=== PATIENT | male | born 1940 | race Caucasian/White ===

== ENCOUNTER 2017-04-29 08:14 | Inpatient (IN) | payer OTHER, MEDICARE ==
[~2017-04-29] VITALS: Ht 175.3 cm; Wt 74.5 kg
[~2017-04-29 08:14] MED LIST: AMLO5 PO; ASPI81TA23 PO; DONE5TAB7 PO; ENAL20TA PO; GLIP10TA6 PO; HYDR25TA5 PO; LIPI80TA PO; METF1000 PO; NAME5TAB2 PO; PANT40TA3 PO; PARO40TA2 PO; PROP60 PO; SERO50TA PO; TAMS5CAP PO; TRUS2SOL LEFT EYE
[2017-04-29] MEDS ORDERED: METOPROLOL TARTRATE 25 MG TAB PO PRN (09:00)
[2017-04-29] MEDS ORDERED: ceFAZolin 2 GM PREMIX 50 ML IV SCH (09:00)
[2017-04-29] MEDS ORDERED: SODIUM CHLORID 0.9% 500 ML IV PRN (09:00)
[2017-04-29] MEDS ORDERED: CHLORHEXIDINE GLUCONATE 2 % 1 PACK (2 CLOTHS) TOPICAL PRN (09:00)
[2017-04-29] MEDS ORDERED: POVIDONE IODINE 5% (ANTISEPSIS KIT) 4 APPLICATIONS EACH NARE PRN (09:00)
[2017-04-29] MEDS ORDERED: LACTATED RINGER'S 1000 ML IV PRN (09:00)
[2017-04-29] MEDS ORDERED: ACETAMINOPHEN 1000 MG/100 ML 100 ML IV ONE (09:58)
[2017-04-29] MEDS ORDERED: BUPIVACAINE/EPINEPHRINE 0.25% 50 ML VIAL ONE (10:07)
[2017-04-29] MEDS ORDERED: BUPIVACAINE LIPOSOME PF 1.3% 20 ML VIAL ONE (10:25)
[2017-04-29 10:34] LABS: AUTOMATED NEUTROPHIL # 3.9 TH/MM3 (1.8-7.7); BASOPHIL % 0.7 % (0.0-2.0); EOSINOPHIL # 0.1 TH/MM3 (0-0.4); EOSINOPHIL % 1.3 % (0.0-4.0); HEMATOCRIT 35.1 % (39.0-51.0); HEMOGLOBIN 12.1 GM/DL (13.0-17.0); LYMPH % 27.4 % (9.0-44.0); LYMPHOCYTE # 1.7 TH/MM3 (1.0-4.8); MEAN CELL VOLUME 89.1 FL (80.0-100.0); MEAN CORPUSCULAR HEMOGLOBIN 30.7 PG (27.0-34.0); MEAN CORPUSCULAR HGB CONC 34.5 % (32.0-36.0); MEAN PLATELET VOLUME 8.6 FL (7.0-11.0); MONO % 9.1 % (0.0-8.0); MONOCYTE # 0.6 TH/MM3 (0-0.9); NEUT % 61.5 % (16.0-70.0); PLATELET COUNT 225 TH/MM3 (150-450); RED BLOOD COUNT 3.94 MIL/MM3 (4.50-5.90); RED CELL DISTRIBUTION WIDTH 15.5 % (11.6-17.2); WHITE BLOOD COUNT 6.3 TH/MM3 (4.0-11.0)
--- NOTE | 2017-04-29 11:38 | EKG ---
Date Performed: 04/29/2017 Time Performed: 08:56:21 PTAGE: 77 years EKG: Sinus rhythm NORMAL ECG PREVIOUS TRACING : 10/23/2015 13.26 Since the prior tracing, there has been no significant garcia DOCTOR: Tevin Pedro Interpretating Date/Time 04/29/2017 11:37:10
[2017-04-29] MEDS ORDERED: GLYCOPYRROLATE 1 MG/5 ML SYRINGE IV PUSH ONE (12:00)
[2017-04-29] MEDS ORDERED: SODIUM CHLORIDE 0.9% 20 ML VIAL IV ONE (12:00)
[2017-04-29] MEDS ORDERED: ePHEDrine/NS 25 MG/5 ML SYRINGE IV ONE (12:00)
[2017-04-29] MEDS ORDERED: ONDANSETRON HCL 4 MG/2 ML VIAL IV ONE (12:00)
[2017-04-29] MEDS ORDERED: NEOSTIGMINE 5 MG/5 ML SYRINGE IV PUSH ONE (12:00)
[2017-04-29] MEDS ORDERED: PROPOFOL 200 MG/20 ML AMP IV ONE (12:00)
[2017-04-29] MEDS ORDERED: DEXAMETHASONE SOD PHOS 4 MG/ML VIAL IV ONE (12:00)
[2017-04-29] MEDS ORDERED: ROCURONIUM INJ 50 MG/5 ML SYRINGE IV PUSH ONE (12:00)
[2017-04-29] MEDS ORDERED: LIDOCAINE HCL 1% PF 5 ML SYRINGE OTHER ONE (12:00)
[2017-04-29] MEDS ORDERED: DO NOT ADM ANY ANTICOAGULANT DRUGS PRN (13:30)
[2017-04-29] MEDS ORDERED: *morphine SULFATE 4 MG/ML PERIprocedure ONLY ONE ×2 (14:08→14:52)
[2017-04-29] MEDS ORDERED: ONDANSETRON HCL 4 MG/2 ML VIAL IV PUSH PRN (14:15)
[2017-04-29] MEDS ORDERED: NALOXONE HCL 0.4 MG/ML AMP IV PUSH PRN (14:15)
[2017-04-29] MEDS ORDERED: ACETAMINOPHEN/HYDROcodone 325 MG/5 MG TAB PO PRN (14:15)
[2017-04-29] MEDS ORDERED: diphenhydrAMINE HCL 25 MG CAP PO PRN (14:15)
[2017-04-29] MEDS ORDERED: MAGNESIUM HYDROXIDE SUSP 30 ML CUP PO PRN (14:15)
[2017-04-29] MEDS ORDERED: MORPHINE SULFATE 8 MG/ML INJ IV PUSH PRN (14:15)
[2017-04-29] MEDS ORDERED: Post-op Orders (for Pharmacy) XX ONE (14:15)
--- NOTE | 2017-04-29 15:48 | PD.CONS ---
HPI Service [facility] Consult Requested By Dr. Bryant Reason for Consult Medical management Primary Care Physician Pranav Lebron MD Diagnoses: (1) Incisional hernia History of Present Illness 77-year-old male with a medical history significant for coronary artery disease , CVA, diabetes, hypertension, abdominal aortic aneurysm status post repair and incisional hernia admitted to the hospital by general surgery for incisional hernia repair. Apparently the patient failed conservative management therefore he was admitted for surgical intervention. He is seen postoperatively. He reports some discomfort at the site of surgery, otherwise no other complaints. No nausea or vomiting. The patient is a very poor historian. Available records extensively reviewed. Review of Systems Constitutional: DENIES: Fever, Chills Gastrointestinal: COMPLAINS OF: Abdominal pain, DENIES: Nausea, Vomiting Psychiatric: DENIES: Mood changes Except as stated in HPI: all other systems reviewed are Neg Past Family Social History Allergies: Coded Allergies: No Known Allergies (Verified Allergy, Unknown, 04/29/17) Past Medical History Hypertension CVA Impression Diabetes mellitus Coronary artery disease GERD Alzheimer's disease Past Surgical History AAA repair Bilateral inguinal hernia repair History of stent placement 4 Tonsillectomy Longitudinal incisional abdominal hernia repair Family History Reviewed and is found to be noncontributory. Social History Tobacco abuse Denies any alcohol use Physical Exam Vital Signs Vital Signs Date Time Temp Pulse Resp B/P (MAP) Pulse Ox O2 Delivery O2 Flow Rate FiO2 04/29/17 14:15 60 20 157/74 (101) 98 Nasal Cannula 4 04/29/17 14:00 60 20 160/68 (98) 98 Nasal Cannula 4 04/29/17 13:45 59 20 163/73 (103) 98 Nasal Cannula 4 04/29/17 13:30 97.6 60 20 165/79 (107) 98 Nasal Cannula 4 Physical Exam GENERAL: Elderly male, in no apparent distress. SKIN: No rashes, ecchymoses or lesions. Cool and dry. HEAD: Atraumatic. Normocephalic. No temporal or scalp tenderness. EYES: Pupils equal round and reactive. Extraocular motions intact. No scleral icterus. No injection or drainage. ENT: Nose without drainage. Throat without erythema, tonsillar hypertrophy or exudate. Uvula midline. Airway patent. NECK: Trachea midline. No JVD or lymphadenopathy. Supple, nontender, no meningeal signs. CARDIOVASCULAR: Regular rate and rhythm without murmurs, gallops, or rubs. RESPIRATORY: Clear to auscultation. Breath sounds equal bilaterally. GASTROINTESTINAL: Postop, abdominal binder in place. Pedicle dressing in place. MUSCULOSKELETAL: Extremities without clubbing, cyanosis, or edema. NEUROLOGICAL: Very hard of hearing. Awake and alert. Can have a simple conversation Laboratory Laboratory Tests Test 04/29/17 10:15 White Blood Count 6.3 Red Blood Count 3.94 Hemoglobin 12.1 Hematocrit 35.1 Mean Corpuscular Volume 89.1 Mean Corpuscular Hemoglobin 30.7 Mean Corpuscular Hemoglobin Concent 34.5 Red Cell Distribution Width 15.5 Platelet Count 225 Mean Platelet Volume 8.6 Neutrophils (%) (Auto) 61.5 Lymphocytes (%) (Auto) 27.4 Monocytes (%) (Auto) 9.1 Eosinophils (%) (Auto) 1.3 Basophils (%) (Auto) 0.7 Neutrophils # (Auto) 3.9 Lymphocytes # (Auto) 1.7 Monocytes # (Auto) 0.6 Eosinophils # (Auto) 0.1 Basophils # (Auto) 0.0 CBC Comment DIFF FINAL Differential Comment Result Diagram: 04/29/17 1015 Assessment and Plan Problem List: (1) History of incisional hernia repair ICD Code: Z98.890 - Other specified postprocedural states; Z87.19 - Personal history of other diseases of the digestive system (2) Incisional hernia ICD Code: K43.2 - Incisional hernia without obstruction or gangrene (3) HTN (hypertension) ICD Code: I10 - Essential (primary) hypertension Status: Chronic (4) DM (diabetes mellitus) ICD Code: E11.9 - Type 2 diabetes mellitus without complications Status: Chronic (5) CAD (coronary artery disease) ICD Code: I25.10 - Atherosclerotic heart disease of [place] coronary artery without angina pectoris Status: Chronic (6) Alzheimer's dementia ICD Code: G30.9 - Alzheimer's disease, unspecified Status: Chronic (7) H/O: CVA (cerebrovascular accident) ICD Code: Z86.73 - Personal history of transient ischemic attack (TIA), and cerebral infarction without residual deficits Status: Chronic Assessment and Plan 75-year-old male with comorbid conditions significant for CVA, CAD, diabetes, hypertension, history of AAA repair admitted for abdominal incisional hernia repair. Consulted for medical management of comorbid conditions. Status post incisional hernia repair: - Plan per surgery. - Pain control - Monitor bowel functions HTN: - Continue Norvasc, HCTZ, Enalapril and propranolol. - Clonidine as needed. - Monitor BP Diabetes: - Hold metformin and Glipizide. Check BMP - Sliding-scale insulin with Accu-Cheks Dementia: Continue Aricept and Seroquel. H/O CVA: Continue Aspirin CAD: Continue Aspirin, beta leanna. DVT prophylaxis: Frankie Quiroga MD Apr 29, 2017 15:48
[2017-04-29 16:00] VITALS: BP 176/89; PULSE 63; RESP 16; TEMP 96.5; O2SAT 96
[2017-04-29] MEDS: D5-NS + KCL 20 MEQ INJ 1,000 ML IV SCH (16:00)
[2017-04-29] MEDS ORDERED: glipiZIDE 10 MG TAB PO SCH (16:00)
[2017-04-29] MEDS: PROPRANOLOL HCL 20 MG TAB PO SCH (16:49)
[2017-04-29] MEDS: DORZOLAMIDE 2% OPTH SOLN 200 DROP/10 ML BTLO LEFT EYE SCH (16:49)
[2017-04-29] MEDS ORDERED: DEXTROSE 50% IN WATER 50 ML VIAL(D50) IV PUSH PRN (17:00)
[2017-04-29] MEDS ORDERED: GLUCAGON 1 MG/ML VIAL OTHER PRN (17:00)
[2017-04-29] MEDS ORDERED: metFORMIN HCL 500 MG TAB PO SCH (17:00)
[2017-04-29] MEDS ORDERED: cloNIDine HCL 0.1 MG TAB PO PRN (17:00)
[2017-04-29] MEDS: INSULIN ASPART SUPPLEMENTAL SCALE SQ SCH ×2 (18:03→21:20)
[2017-04-29 20:00] VITALS: BP 121/63; PULSE 57; RESP 20; TEMP 96.2; O2SAT 93
[2017-04-29] MEDS: DONEPEZIL HCL 5 MG TAB PO SCH (20:10)
[2017-04-29] MEDS: QUEtiapine FUMARATE 25 MG TAB PO SCH (20:11)
[2017-04-29] MEDS: TAMSULOSIN HCL 0.4 MG CAP PO SCH (20:11)
[2017-04-29] MEDS: ATORVASTATIN 80 MG TAB PO SCH (20:11)
[2017-04-29] MEDS: MEMANTINE HCL 5 MG TAB PO SCH (20:11)
[2017-04-29] MEDS: PANTOPRAZOLE SOD 40 MG DELAYED RELEASE TAB PO SCH (20:12)
[2017-04-29] MEDS: DOCUSATE SODIUM 100 MG CAP PO SCH (20:12)
[2017-04-29] MEDS ORDERED: ENALAPRIL MALEATE 10 MG TAB PO SCH (21:00)
[2017-04-29] MEDS ORDERED: PCA - TOTAL MG MORPHINE DELIVERED PER SHIFT SCH (22:00)
[2017-04-29 22:31] LABS: CALCIUM 8.1 MG/DL (8.5-10.1); CREATININE 1.47 MG/DL (0.60-1.30)
[2017-04-30] VITALS: BP 125/64; PULSE 70; RESP 18; TEMP 97.7; O2SAT 94
[2017-04-30 04:00] VITALS: BP 130/64; PULSE 69; RESP 18; TEMP 98.4; O2SAT 93
[2017-04-30 06:07] LABS: AUTOMATED NEUTROPHIL # 5.9 TH/MM3 (1.8-7.7); BASOPHIL % 0.2 % (0.0-2.0); HEMATOCRIT 34.4 % (39.0-51.0); HEMOGLOBIN 11.8 GM/DL (13.0-17.0); LYMPH % 16.3 % (9.0-44.0); LYMPHOCYTE # 1.3 TH/MM3 (1.0-4.8); MEAN CELL VOLUME 89.9 FL (80.0-100.0); MEAN CORPUSCULAR HEMOGLOBIN 30.8 PG (27.0-34.0); MEAN CORPUSCULAR HGB CONC 34.3 % (32.0-36.0); MONO % 8.6 % (0.0-8.0); MONOCYTE # 0.7 TH/MM3 (0-0.9); NEUT % 74.9 % (16.0-70.0); PLATELET COUNT 232 TH/MM3 (150-450); RED BLOOD COUNT 3.83 MIL/MM3 (4.50-5.90); RED CELL DISTRIBUTION WIDTH 15.6 % (11.6-17.2); WHITE BLOOD COUNT 7.8 TH/MM3 (4.0-11.0)
[2017-04-30 06:26] LABS: BICARBONATE 25.7 MEQ/L (21.0-32.0); CALCIUM 8.1 MG/DL (8.5-10.1); CREATININE 1.4 MG/DL (0.60-1.30)
[2017-04-30 08:00] VITALS: BP 145/67; PULSE 79; RESP 16; TEMP 98.6; O2SAT 94
[2017-04-30] MEDS: amLODIPine BESYLATE 5 MG TAB PO SCH (08:40)
[2017-04-30] MEDS: INSULIN ASPART SUPPLEMENTAL SCALE SQ SCH ×4 (08:40→23:34)
[2017-04-30] MEDS: DOCUSATE SODIUM 100 MG CAP PO SCH ×2 (08:40→23:31)
[2017-04-30] MEDS: PANTOPRAZOLE SOD 40 MG DELAYED RELEASE TAB PO SCH ×2 (08:41→23:31)
[2017-04-30] MEDS: PARoxetine HCL 20 MG TAB PO SCH (08:41)
[2017-04-30] MEDS: PROPRANOLOL HCL 20 MG TAB PO SCH ×3 (08:41→17:45)
[2017-04-30] MEDS: ASPIRIN EC 81 MG TABEC PO SCH (08:41)
[2017-04-30] MEDS: MEMANTINE HCL 5 MG TAB PO SCH ×2 (08:41→23:31)
[2017-04-30] MEDS: HYDROCHLOROTHIAZIDE 25 MG TAB PO SCH (08:41)
[2017-04-30] MEDS: D5-NS + KCL 20 MEQ INJ 1,000 ML IV SCH ×4 (08:42→23:34)
[2017-04-30] MEDS: ACETAMINOPHEN/HYDROcodone 325 MG/5 MG TAB PO PRN ×2 (08:42→23:43)
[2017-04-30] MEDS: DORZOLAMIDE 2% OPTH SOLN 200 DROP/10 ML BTLO LEFT EYE SCH ×3 (08:42→17:46)
--- NOTE | 2017-04-30 09:10 | MP ---
cc: DE LANGSTON M.D. DATE OF SURGERY 04/29/2017 PREOPERATIVE DIAGNOSIS Large ventral incisional hernia POSTOPERATIVE DIAGNOSIS Large ventral incisional hernia PROCEDURE PERFORMED Ventral incisional hernia repair with component separation, retrorectus mesh repair with abdominal wall reconstruction. SURGEON De Langston MD PETROLEUM INSPECTOR Chu Drew MD ANESTHESIA General endotracheal COMPLICATIONS None INDICATIONS FOR THE PROCEDURE Mr. Jaramillo is a pleasant 77-year-old gentleman who had a very large ventral incisional hernia. The majority of this hernia was from the umbilicus down to the pubis where he had a very large hernia sac hanging down into his mons area. There were multiple palpable loops of bowel within the hernia. He also had some smaller [place] cheese type hernias in the upper midline. The patient had a previous exploratory laparotomy. He was seen in the office and offered observation due to his advanced age and medical comorbidities versus repair with mesh. The patient was adamant to have a repair. He states he could no longer go on living with this large hernia. He was advised to wear a binder until surgical repair was completed. The patient underwent cardiac and pulmonary clearance and then returned to the office still expressing interest in repair. The risks and benefits were reviewed with him in detail and he was agreeable. DETAILS The patient was identified, brought to the operating room, placed supine on the operating room table. After adequate general endotracheal anesthesia was achieved, the abdomen was prepped and draped in standard surgical fashion. An elliptical skin incision was used to excise the patient's previous midline laparotomy incision. Dissection carried down to the subcutaneous tissue were a large hernia sac was immediately identified in the lower abdominal area. The hernia sac was grasped and carefully opened. Immediately there were multiple loops of small bowel seen within the hernia sac. The hernia sac and peritoneum was then opened widely. The small bowel was reduced back into the abdominal cavity. By direct palpation, I thought there were multiple hernias throughout the entire midline incision with a very large hernia with diastasis of the rectus in the lower midline. There were also multiple a small bowel adhesions to the abdominal wall which were taken down with sharp dissection. Once the small bowel and omentum was completely freed of the abdominal wall, attention was now directed to repair. Repair was accomplished using a retrorectus abdominal wall component separation technique. First, the hernia sac was excised circumferentially with electrocautery Bovie. Next, the peritoneum and posterior fascia was freed up off of the rectus muscle proceeding out laterally to the abdominal wall muscle. The entire posterior fascia and peritoneum was freed up circumferentially all the way around. Next, two pieces of Seprafilm were placed on the small bowel. The patient had no omentum to covered it up. The posterior fascia and peritoneum was then closed with a #1 loop PDS continuous running for the full length of the incision. There was no significant tension on this closure. Once we did this, a piece of TIGR mesh was brought up 30 x 40. The TIGR mesh was then trimmed to fit the abdominal wall. The mesh was secured inferiorly at the pelvic bone and Kvng's ligament. It was then secured on the posterior fascia circumferentially using a 2-0 Vicryl suture. It was then sutured superiorly in the xiphoid region again using 2-0 Vicryl. The mesh laid completely flat was under no significant tension. The abdominal cavity was then copiously irrigated out with normal saline solution. Attention was now directed to the anterior repair. Anterior repair was accomplished using a #1 looped PDS in a continuous running fashion sewing the abdominal wall fascia together under no significant tension. Once we did this, the patient had an excellent two-layer repair with the retrorectus mesh. The wound was copiously irrigated with normal saline solution. The redundant skin was then excised using sharp dissection. The subcutaneous fat was then reapproximated with 3-0 Vicryl. Skin was closed with a skin stapling device. Sterile dressings were applied and the patient was awakened, brought to recovery in stable condition. MD ALICE Walker/KAYY /3:21 PM /8:34 AM
[2017-04-30 12:00] VITALS: BP 105/53; PULSE 61; RESP 16; TEMP 98.4; O2SAT 93
[2017-04-30] MEDS: ENOXAPARIN SODIUM 30 MG/0.3 ML SYRINGE SQ SCH (12:12)
--- NOTE | 2017-04-30 14:06 | HHI.PR ---
Subjective Remarks Patient reports he is feeling ok. Passing gas. Tolerating a diet. Pain is controlled. Objective Vitals Vital Signs Date Time Temp Pulse Resp B/P (MAP) Pulse Ox O2 Delivery O2 Flow Rate FiO2 04/30/17 12:00 98.4 61 16 105/53 (70) 93 04/30/17 08:00 98.6 79 16 145/67 (93) 94 04/30/17 04:00 98.4 69 18 130/64 (86) 93 04/30/17 00:00 97.7 70 18 125/64 (84) 94 04/29/17 21:12 20 04/29/17 20:00 96.2 57 20 121/63 (82) 93 04/29/17 16:00 96.5 63 16 176/89 (118) 96 04/29/17 15:45 98.1 60 20 145/67 (93) 96 Nasal Cannula 2 04/29/17 15:30 60 20 142/67 (92) 96 Nasal Cannula 2 04/29/17 15:15 60 20 149/72 (97) 96 Nasal Cannula 2 04/29/17 15:00 61 20 148/70 (96) 96 Nasal Cannula 2 04/29/17 14:45 60 20 147/72 (97) 96 Nasal Cannula 2 04/29/17 14:30 60 20 157/73 (101) 96 Nasal Cannula 2 04/29/17 14:15 60 20 157/74 (101) 98 Nasal Cannula 4 I/O 04/29/17 04/29/17 04/29/17 04/30/17 04/30/17 04/30/17 06:59 14:59 22:59 06:59 14:59 22:59 Intake Total 1300 ml 240 ml 360 ml Output Total 250 ml 250 ml 325 ml Balance 1050 ml -10 ml 35 ml Intake Oral 240 ml 360 ml Other 1300 ml Output Urine Total 200 ml 250 ml 325 ml Estimated Blood Loss 50 ml # Bowel Movements 0 0 Result Diagram: 04/30/1745404/30/17454 Objective Remarks GENERAL: This is a well-nourished, well-developed patient, in no apparent distress. CARDIOVASCULAR: Regular rate and rhythm without murmurs, gallops, or rubs. RESPIRATORY: Clear to auscultation. Breath sounds equal bilaterally. No wheezes , rales, or rhonchi. GASTROINTESTINAL: Abdomen binder in place, postop dressing intact. hypoactive bowel sounds MUSCULOSKELETAL: Extremities without clubbing, cyanosis, or edema. NEURO: Awake and alert. Moves all ext x4 A/P Problem List: (1) History of incisional hernia repair ICD Code: Z98.890 - Other specified postprocedural states; Z87.19 - Personal history of other diseases of the digestive system (2) Incisional hernia ICD Code: K43.2 - Incisional hernia without obstruction or gangrene (3) HTN (hypertension) ICD Code: I10 - Essential (primary) hypertension Status: Chronic (4) DM (diabetes mellitus) ICD Code: E11.9 - Type 2 diabetes mellitus without complications Status: Chronic (5) CAD (coronary artery disease) ICD Code: I25.10 - Atherosclerotic heart disease of [place] coronary artery without angina pectoris Status: Chronic (6) Alzheimer's dementia ICD Code: G30.9 - Alzheimer's disease, unspecified Status: Chronic (7) H/O: CVA (cerebrovascular accident) ICD Code: Z86.73 - Personal history of transient ischemic attack (TIA), and cerebral infarction without residual deficits Status: Chronic Assessment and Plan 75-year-old male with comorbid conditions significant for CVA, CAD, diabetes, hypertension, history of AAA repair admitted for abdominal incisional hernia repair. Hospitalist following for medical management of comorbid conditions. Status post incisional hernia repair: - Plan per surgery. - Pain control - Monitor bowel functions HTN: - Continue Norvasc, HCTZ, Enalapril and propranolol. - Clonidine as needed. - Monitor BP Diabetes: - Hold metformin and Glipizide. - Sliding-scale insulin with Accu-Cheks Dementia: Continue Aricept and Seroquel. Probable CKD: Stable. Continue to monitor. H/O CVA: Continue Aspirin CAD: Continue Aspirin, beta leanna. DVT prophylaxis: Frankie Quiroga MD Apr 30, 2017 14:06
--- NOTE | 2017-04-30 15:08 | HHI.PR ---
Subjective Subjective Notes Resting in bed Has been OOB once today Had some coffee Objective Vitals/I&O Vital Signs Date Time Temp Pulse Resp B/P (MAP) Pulse Ox O2 Delivery O2 Flow Rate FiO2 04/30/17 12:00 98.4 61 16 105/53 (70) 93 04/29/17 15:45 Nasal Cannula 2 Labs Laboratory Tests Test 04/29/17 21:23 04/30/17 04:55 Blood Urea Nitrogen 26 30 Creatinine 1.47 1.40 Random Glucose 185 167 Calcium Level 8.1 8.1 Sodium Level 139 139 Potassium Level 4.6 4.3 Chloride Level 107 106 Carbon Dioxide Level 24.0 25.7 Anion Gap 8 7 Estimat Glomerular Filtration Rate 46 49 White Blood Count 7.8 Red Blood Count 3.83 Hemoglobin 11.8 Hematocrit 34.4 Mean Corpuscular Volume 89.9 Mean Corpuscular Hemoglobin 30.8 Mean Corpuscular Hemoglobin Concent 34.3 Red Cell Distribution Width 15.6 Platelet Count 232 Mean Platelet Volume 9.0 Neutrophils (%) (Auto) 74.9 Lymphocytes (%) (Auto) 16.3 Monocytes (%) (Auto) 8.6 Eosinophils (%) (Auto) 0.0 Basophils (%) (Auto) 0.2 Neutrophils # (Auto) 5.9 Lymphocytes # (Auto) 1.3 Monocytes # (Auto) 0.7 Eosinophils # (Auto) 0.0 Basophils # (Auto) 0.0 CBC Comment DIFF FINAL Differential Comment Cardiovascular: Regular Lungs: Clear Abdomen: Other (ANURAG in place with good seal; abdomen tender throughout ) Extremities: No edema A/P Assessment and Plan 77 year old male POD1 abdominal wall reconstruction; modified components separation; mesh -Continue clear liquids -OOB and mobilize; PT eval and treat -Continue IVF -S/p Varela removal -Will likely need short term rehab --would like [facility] ---spoke with America Morgan Apr 30, 2017 15:08
[2017-04-30 16:00] VITALS: BP 176/81; PULSE 72; RESP 17; TEMP 97.2; O2SAT 93
[2017-04-30 20:00] VITALS: BP 155/73; PULSE 68; RESP 16; TEMP 98.1; O2SAT 92
[2017-04-30] MEDS: ATORVASTATIN 80 MG TAB PO SCH (23:31)
[2017-04-30] MEDS: DONEPEZIL HCL 5 MG TAB PO SCH (23:31)
[2017-04-30] MEDS: TAMSULOSIN HCL 0.4 MG CAP PO SCH (23:32)
[2017-04-30] MEDS: QUEtiapine FUMARATE 25 MG TAB PO SCH (23:32)
[2017-05-01] VITALS: BP 173/81; PULSE 73; RESP 16; TEMP 97.9; O2SAT 94
[2017-05-01 06:22] LABS: BICARBONATE 23.9 MEQ/L (21.0-32.0); CALCIUM 8.6 MG/DL (8.5-10.1); CREATININE 1.28 MG/DL (0.60-1.30)
[2017-05-01 08:01] VITALS: BP 182/84; PULSE 89; RESP 19; TEMP 96.8; O2SAT 95
[2017-05-01] MEDS ORDERED: HYDR-3516 PO (08:44)
[2017-05-01] MEDS: D5-NS + KCL 20 MEQ INJ 1,000 ML IV SCH (09:16)
[2017-05-01] MEDS: PARoxetine HCL 20 MG TAB PO SCH (09:17)
[2017-05-01] MEDS: DOCUSATE SODIUM 100 MG CAP PO SCH ×2 (09:17→23:05)
[2017-05-01] MEDS: INSULIN ASPART SUPPLEMENTAL SCALE SQ SCH ×4 (09:17→23:04)
[2017-05-01] MEDS: ASPIRIN EC 81 MG TABEC PO SCH (09:17)
[2017-05-01] MEDS: DORZOLAMIDE 2% OPTH SOLN 200 DROP/10 ML BTLO LEFT EYE SCH ×3 (09:18→17:38)
[2017-05-01] MEDS: HYDROCHLOROTHIAZIDE 25 MG TAB PO SCH (09:18)
[2017-05-01] MEDS: amLODIPine BESYLATE 5 MG TAB PO SCH (09:18)
[2017-05-01] MEDS: MEMANTINE HCL 5 MG TAB PO SCH ×2 (09:18→21:00)
[2017-05-01] MEDS: ENALAPRIL MALEATE 10 MG TAB PO SCH ×2 (09:18→23:06)
[2017-05-01] MEDS: PROPRANOLOL HCL 20 MG TAB PO SCH ×3 (09:18→17:37)
[2017-05-01] MEDS: PANTOPRAZOLE SOD 40 MG DELAYED RELEASE TAB PO SCH ×2 (09:18→23:05)
[2017-05-01] MEDS: ENOXAPARIN SODIUM 30 MG/0.3 ML SYRINGE SQ SCH (11:59)
--- NOTE | 2017-05-01 12:29 | HHI.PR ---
cc: Say Bryant MD Subjective Subjective Notes Resting in bed Feeling about the same as yesterday Tolerating clear liquids Objective Vitals/I&O Vital Signs Date Time Temp Pulse Resp B/P (MAP) Pulse Ox O2 Delivery O2 Flow Rate FiO2 05/01/17 08:01 96.8 89 19 182/84 (116) 95 04/29/17 15:45 Nasal Cannula 2 Labs Laboratory Tests Test 05/01/17 04:20 Blood Urea Nitrogen 19 Creatinine 1.28 Random Glucose 197 Calcium Level 8.6 Sodium Level 135 Potassium Level 4.0 Chloride Level 105 Carbon Dioxide Level 23.9 Anion Gap 6 Estimat Glomerular Filtration Rate 54 Cardiovascular: Regular Lungs: Clear Abdomen: Other (ANURAG in place with good seal; abdomen soft; mildly tender to palpation ) Extremities: No edema A/P Assessment and Plan 77 year old male POD2 abdominal wall reconstruction; modified components separation; mesh -Continue clear liquids -OOB and mobilize; PT eval and treat -Decrease IVF -Will likely need short term rehab --would like [facility] ---spoke with BEATRIS Blanco; signed 3005 on chart -Plan for DC early next week America Bautista May 01, 2017 12:29
[2017-05-01 12:32] VITALS: BP 135/60; PULSE 60; RESP 18; TEMP 96.8; O2SAT 96
--- NOTE | 2017-05-01 14:56 | RADRPT ---
EXAM DATE/TIME: 05/01/2017 14:42 [facility] COMPARISON: CHEST SINGLE AP, September 16, 2015, 10:55. INDICATIONS : Short of breath. MEDICAL HISTORY : Hypertension. Cardiovascular disease Diabetes mellitus type 2. SURGICAL HISTORY : Hernia surgery. ENCOUNTER: Initial ACUITY: 1 day PAIN SCORE: 0/10 LOCATION: Bilateral chest FINDINGS: A single view of the chest demonstrates minimal bibasilar densities. The cardiomediastinal contours are unremarkable. Osseous structures are intact. CONCLUSION: Bibasilar densities greater left lower lobe. Dylan Monroy MD on May 01, 2017 at 14:52 Board Certified Radiologist. This report was verified electronically.
[2017-05-01 16:00] VITALS: BP 166/76; PULSE 60; RESP 18; TEMP 97.3; O2SAT 96
--- NOTE | 2017-05-01 16:09 | HHI.PR ---
Subjective Remarks Patient reports he is doing okay today. Pain is controlled. Tolerating a diet. Objective Vitals Vital Signs Date Time Temp Pulse Resp B/P (MAP) Pulse Ox O2 Delivery O2 Flow Rate FiO2 05/01/17 12:32 96.8 60 18 135/60 (85) 96 05/01/17 08:01 96.8 89 19 182/84 (116) 95 05/01/17 00:00 97.9 73 16 173/81 (111) 94 04/30/17 20:00 98.1 68 16 155/73 (100) 92 I/O 04/30/17 04/30/17 04/30/17 05/01/17 05/01/17 05/01/17 07:00 15:00 23:00 07:00 15:00 23:00 Intake Total 360 ml 660 ml 1000 ml Output Total 325 ml 700 ml Balance 35 ml -40 ml 1000 ml Intake Oral 360 ml 660 ml IV Total 1000 ml Output Urine Total 325 ml 700 ml # Voids 3 # Bowel Movements 0 0 Result Diagram: 04/30/17 0455 05/01/17 0420 Objective Remarks GENERAL: This is a well-nourished, well-developed patient, in no apparent distress. CARDIOVASCULAR: Regular rate and rhythm without murmurs, gallops, or rubs. RESPIRATORY: Clear to auscultation. Breath sounds equal bilaterally. No wheezes , rales, or rhonchi. GASTROINTESTINAL: Abdomen binder in place, postop dressing intact. hypoactive bowel sounds MUSCULOSKELETAL: Extremities without clubbing, cyanosis, or edema. NEURO: Awake and alert. Moves all ext x4 A/P Problem List: (1) History of incisional hernia repair ICD Code: Z98.890 - Other specified postprocedural states; Z87.19 - Personal history of other diseases of the digestive system (2) Incisional hernia ICD Code: K43.2 - Incisional hernia without obstruction or gangrene (3) HTN (hypertension) ICD Code: I10 - Essential (primary) hypertension Status: Chronic (4) DM (diabetes mellitus) ICD Code: E11.9 - Type 2 diabetes mellitus without complications Status: Chronic (5) CAD (coronary artery disease) ICD Code: I25.10 - Atherosclerotic heart disease of [place] coronary artery without angina pectoris Status: Chronic (6) Alzheimer's dementia ICD Code: G30.9 - Alzheimer's disease, unspecified Status: Chronic (7) H/O: CVA (cerebrovascular accident) ICD Code: Z86.73 - Personal history of transient ischemic attack (TIA), and cerebral infarction without residual deficits Status: Chronic Assessment and Plan 75-year-old male with comorbid conditions significant for CVA, CAD, diabetes, hypertension, history of AAA repair admitted for abdominal incisional hernia repair. Hospitalist following for medical management of comorbid conditions. Status post incisional hernia repair: - Plan per surgery. - Pain control - Monitor bowel functions - Incentive spirometry - Encourage ambulation HTN: - Continue Norvasc, HCTZ,propranolol. - Restart enalapril - Clonidine as needed. - Monitor BP Diabetes: - Hold metformin and Glipizide. - Sliding-scale insulin with Accu-Cheks Dementia: Continue Aricept and Seroquel. Probable CKD: Stable. Continue to monitor. H/O CVA: Continue Aspirin CAD: Continue Aspirin, beta leanna. DVT prophylaxis: Lovenox Discharge Planning Per primary. He will need SNF. Frankie Osborne MD May 01, 2017 16:09
[2017-05-01 16:30] VITALS: O2SAT 96
[2017-05-01 20:00] VITALS: BP 173/78; PULSE 58; RESP 18; TEMP 97.9; O2SAT 95
[2017-05-01] MEDS: DONEPEZIL HCL 5 MG TAB PO SCH (23:04)
[2017-05-01] MEDS: ATORVASTATIN 80 MG TAB PO SCH (23:04)
[2017-05-01] MEDS: QUEtiapine FUMARATE 25 MG TAB PO SCH (23:05)
[2017-05-01] MEDS: TAMSULOSIN HCL 0.4 MG CAP PO SCH (23:05)
[2017-05-02] VITALS: BP 138/65; PULSE 64; RESP 18; TEMP 97.6; O2SAT 96
[2017-05-02 08:00] VITALS: BP 180/82; PULSE 67; RESP 16; TEMP 98.7; O2SAT 97
[2017-05-02] MEDS: INSULIN ASPART SUPPLEMENTAL SCALE SQ SCH ×4 (08:00→22:40)
[2017-05-02] MEDS: DORZOLAMIDE 2% OPTH SOLN 200 DROP/10 ML BTLO LEFT EYE SCH ×3 (08:18→16:13)
[2017-05-02] MEDS: amLODIPine BESYLATE 5 MG TAB PO SCH (08:20)
[2017-05-02] MEDS: PANTOPRAZOLE SOD 40 MG DELAYED RELEASE TAB PO SCH ×2 (08:21→22:35)
[2017-05-02] MEDS: PROPRANOLOL HCL 20 MG TAB PO SCH ×3 (08:21→16:34)
[2017-05-02] MEDS: ASPIRIN EC 81 MG TABEC PO SCH (08:21)
[2017-05-02] MEDS: HYDROCHLOROTHIAZIDE 25 MG TAB PO SCH (08:21)
[2017-05-02] MEDS: PARoxetine HCL 20 MG TAB PO SCH (08:22)
[2017-05-02] MEDS: ENALAPRIL MALEATE 10 MG TAB PO SCH ×2 (08:22→22:34)
[2017-05-02] MEDS: DOCUSATE SODIUM 100 MG CAP PO SCH ×2 (08:22→22:35)
--- NOTE | 2017-05-02 08:23 | HHI.PR ---
Subjective Subjective Notes feels fine, tolerating liquids, denies N/V. still mildly confused (baseline). no BM yet Objective Vitals/I&O Vital Signs Date Time Temp Pulse Resp B/P (MAP) Pulse Ox O2 Delivery O2 Flow Rate FiO2 05/02/17 00:00 97.6 64 18 138/65 (89) 96 05/01/17 16:30 Nasal Cannula 3.00 Cardiovascular: Regular Lungs: Clear Abdomen: Non-distended, Post-op tenderness, BS normal Wound Wound : Wound Location: Abdomen Appearance: Clean & Dry Dressing: VAC A/P Assessment and Plan s/p abdominal wall reconstruction for giant incisional hernia advance to soft diet ambulate, up in chair awaiting bowel function to rehab soon. Say Bryant MD May 02, 2017 08:23
[2017-05-02] MEDS: MEMANTINE HCL 5 MG TAB PO SCH ×2 (08:25→22:35)
--- NOTE | 2017-05-02 11:26 | HHI.PR ---
Subjective Remarks Patient reports he is doing ok today. Pain is controlled. BP uncontrolled. Objective Vitals Vital Signs Date Time Temp Pulse Resp B/P (MAP) Pulse Ox O2 Delivery O2 Flow Rate FiO2 05/02/17 08:00 98.7 67 16 180/82 (114) 97 05/02/17 00:00 97.6 64 18 138/65 (89) 96 05/01/17 20:00 97.9 58 18 173/78 (109) 95 05/01/17 16:30 96 Nasal Cannula 3.00 05/01/17 16:00 97.3 60 18 166/76 (106) 96 05/01/17 12:32 96.8 60 18 135/60 (85) 96 I/O 05/01/17 05/01/17 05/01/17 05/02/17 05/02/17 05/02/17 07:00 15:00 23:00 07:00 15:00 23:00 Intake Total 1000 ml 1450 ml Balance 1000 ml 1450 ml Intake Oral 600 ml IV Total 1000 ml 850 ml # Voids 3 10 5 # Bowel Movements 0 0 Result Diagram: 04/30/17 0455 05/01/17 0420 Objective Remarks GENERAL: This is a well-nourished, well-developed patient, in no apparent distress. CARDIOVASCULAR: Regular rate and rhythm without murmurs, gallops, or rubs. RESPIRATORY: Clear to auscultation. Breath sounds equal bilaterally. No wheezes , rales, or rhonchi. GASTROINTESTINAL: Abdomen binder in place, postop dressing intact. Normal bowel sounds MUSCULOSKELETAL: Extremities without clubbing, cyanosis, or edema. NEURO: Awake and alert. Moves all ext x4 A/P Problem List: (1) History of incisional hernia repair ICD Code: Z98.890 - Other specified postprocedural states; Z87.19 - Personal history of other diseases of the digestive system (2) Incisional hernia ICD Code: K43.2 - Incisional hernia without obstruction or gangrene (3) HTN (hypertension) ICD Code: I10 - Essential (primary) hypertension Status: Chronic (4) DM (diabetes mellitus) ICD Code: E11.9 - Type 2 diabetes mellitus without complications Status: Chronic (5) CAD (coronary artery disease) ICD Code: I25.10 - Atherosclerotic heart disease of [place] coronary artery without angina pectoris Status: Chronic (6) Alzheimer's dementia ICD Code: G30.9 - Alzheimer's disease, unspecified Status: Chronic (7) H/O: CVA (cerebrovascular accident) ICD Code: Z86.73 - Personal history of transient ischemic attack (TIA), and cerebral infarction without residual deficits Status: Chronic Assessment and Plan 75-year-old male with comorbid conditions significant for CVA, CAD, diabetes, hypertension, history of AAA repair admitted for abdominal incisional hernia repair. Hospitalist following for medical management of comorbid conditions. Status post incisional hernia repair: - Plan per surgery. - Pain control - Monitor bowel functions - Incentive spirometry - Encourage ambulation HTN: - Uncontrolled, Increase Norvasc. Continue HCTZ,propranolol. - Continue enalapril - Clonidine as needed. - Monitor BP Diabetes: - Hold metformin and Glipizide. - Sliding-scale insulin with Accu-Cheks Dementia: Continue Aricept and Seroquel. Probable CKD: Stable. Continue to monitor. H/O CVA: Continue Aspirin CAD: Continue Aspirin, beta leanna. DVT prophylaxis: Lovenox Discharge Planning Per primary. He will need SNF. Frankie Osborne MD May 02, 2017 11:26
[2017-05-02] MEDS: ENOXAPARIN SODIUM 30 MG/0.3 ML SYRINGE SQ SCH (11:37)
[2017-05-02 12:00] VITALS: BP 154/67; PULSE 56; RESP 17; TEMP 97.8; O2SAT 96
[2017-05-02 16:00] VITALS: BP 173/68; PULSE 58; RESP 18; TEMP 97.1; O2SAT 97
[2017-05-02 20:00] VITALS: BP 146/69; PULSE 59; RESP 10; TEMP 98.4; O2SAT 97
[2017-05-02] MEDS: DONEPEZIL HCL 5 MG TAB PO SCH (22:35)
[2017-05-02] MEDS: ATORVASTATIN 80 MG TAB PO SCH (22:35)
[2017-05-02] MEDS: TAMSULOSIN HCL 0.4 MG CAP PO SCH (22:36)
[2017-05-02] MEDS: QUEtiapine FUMARATE 25 MG TAB PO SCH (22:37)
[2017-05-03 00:21] VITALS: BP 151/71; PULSE 55; RESP 18; TEMP 97.5; O2SAT 95
[2017-05-03] MEDS: DORZOLAMIDE 2% OPTH SOLN 200 DROP/10 ML BTLO LEFT EYE SCH ×3 (07:22→16:44)
[2017-05-03 08:00] VITALS: BP 126/61; PULSE 68; RESP 16; TEMP 96.8; O2SAT 95
[2017-05-03] MEDS: amLODIPine BESYLATE 5 MG TAB PO SCH (09:00)
[2017-05-03] MEDS: INSULIN ASPART SUPPLEMENTAL SCALE SQ SCH ×4 (09:18→20:52)
[2017-05-03] MEDS: DOCUSATE SODIUM 100 MG CAP PO SCH ×2 (09:18→20:35)
[2017-05-03] MEDS: PANTOPRAZOLE SOD 40 MG DELAYED RELEASE TAB PO SCH ×2 (09:20→20:35)
[2017-05-03] MEDS: HYDROCHLOROTHIAZIDE 25 MG TAB PO SCH (09:20)
[2017-05-03] MEDS: MEMANTINE HCL 5 MG TAB PO SCH ×2 (09:21→20:34)
[2017-05-03] MEDS: ENALAPRIL MALEATE 10 MG TAB PO SCH ×2 (09:21→20:35)
[2017-05-03] MEDS: PROPRANOLOL HCL 20 MG TAB PO SCH ×3 (09:21→16:50)
[2017-05-03] MEDS: PARoxetine HCL 20 MG TAB PO SCH (09:22)
[2017-05-03] MEDS: ASPIRIN EC 81 MG TABEC PO SCH (09:22)
--- NOTE | 2017-05-03 11:38 | HHI.PR ---
Subjective Remarks Patient reports is feeling okay. Abdominal pain control. No nausea or vomiting. He is tolerating his diet. Objective Vitals Vital Signs Date Time Temp Pulse Resp B/P (MAP) Pulse Ox O2 Delivery O2 Flow Rate FiO2 05/03/17 08:00 96.8 68 16 126/61 (82) 95 05/03/17 00:21 97.5 55 18 151/71 (97) 95 05/02/17 20:00 98.4 59 10 146/69 (94) 97 05/02/17 16:00 97.1 58 18 173/68 (103) 97 05/02/17 12:00 97.8 56 17 154/67 (96) 96 I/O 05/02/17 05/02/17 05/02/17 05/03/17 05/03/17 05/03/17 07:00 15:00 23:00 07:00 15:00 23:00 Intake Total 420 ml 540 ml Balance 420 ml 540 ml Intake Oral 420 ml 540 ml # Voids 5 4 7 # Bowel Movements 0 0 Result Diagram: 04/30/17 0455 05/01/17 0420 Objective Remarks GENERAL: This is a well-nourished, well-developed patient, in no apparent distress. CARDIOVASCULAR: Regular rate and rhythm without murmurs, gallops, or rubs. RESPIRATORY: Clear to auscultation. Breath sounds equal bilaterally. No wheezes , rales, or rhonchi. GASTROINTESTINAL: Abdomen binder in place, postop dressing intact. Normal bowel sounds MUSCULOSKELETAL: Extremities without clubbing, cyanosis, or edema. NEURO: Awake and alert. Moves all ext x4 A/P Problem List: (1) History of incisional hernia repair ICD Code: Z98.890 - Other specified postprocedural states; Z87.19 - Personal history of other diseases of the digestive system (2) Incisional hernia ICD Code: K43.2 - Incisional hernia without obstruction or gangrene (3) HTN (hypertension) ICD Code: I10 - Essential (primary) hypertension Status: Chronic (4) DM (diabetes mellitus) ICD Code: E11.9 - Type 2 diabetes mellitus without complications Status: Chronic (5) CAD (coronary artery disease) ICD Code: I25.10 - Atherosclerotic heart disease of [place] coronary artery without angina pectoris Status: Chronic (6) Alzheimer's dementia ICD Code: G30.9 - Alzheimer's disease, unspecified Status: Chronic (7) H/O: CVA (cerebrovascular accident) ICD Code: Z86.73 - Personal history of transient ischemic attack (TIA), and cerebral infarction without residual deficits Status: Chronic Assessment and Plan 75-year-old male with comorbid conditions significant for CVA, CAD, diabetes, hypertension, history of AAA repair admitted for abdominal incisional hernia repair. Hospitalist following for medical management of comorbid conditions. Status post incisional hernia repair: - Plan per surgery. - Pain control - Monitor bowel functions - Incentive spirometry - Encourage ambulation HTN: -Better controlled with increased dose of Norvasc. Continue HCTZ,propranolol. - Continue enalapril - Clonidine as needed. - Monitor BP Diabetes: - Hold metformin and Glipizide. - Sliding-scale insulin with Accu-Cheks Dementia: Continue Aricept and Seroquel. Probable CKD: Stable. Continue to monitor. H/O CVA: Continue Aspirin CAD: Continue Aspirin, beta leanna. DVT prophylaxis: Lovenox Discharge Planning Per primary. He will need SNF. Frankie Osborne MD May 03, 2017 11:38
[2017-05-03 12:00] VITALS: BP 128/68; PULSE 73; RESP 17; TEMP 96.5; O2SAT 95
[2017-05-03] MEDS: ENOXAPARIN SODIUM 30 MG/0.3 ML SYRINGE SQ SCH (12:05)
[2017-05-03 16:00] VITALS: BP 124/68; PULSE 65; RESP 17; TEMP 96.4; O2SAT 95
[2017-05-03 20:00] VITALS: BP 143/66; PULSE 58; RESP 20; TEMP 97.9; O2SAT 96
[2017-05-03] MEDS: QUEtiapine FUMARATE 25 MG TAB PO SCH (20:34)
[2017-05-03] MEDS: DONEPEZIL HCL 5 MG TAB PO SCH (20:34)
[2017-05-03] MEDS: TAMSULOSIN HCL 0.4 MG CAP PO SCH (20:35)
[2017-05-03] MEDS: ATORVASTATIN 80 MG TAB PO SCH (20:35)
[2017-05-04] VITALS: BP 125/60; PULSE 59; RESP 18; TEMP 96.7; O2SAT 95
[2017-05-04 08:00] VITALS: BP 122/58; PULSE 71; RESP 18; TEMP 96.6; O2SAT 97
[2017-05-04] MEDS: INSULIN ASPART SUPPLEMENTAL SCALE SQ SCH ×4 (08:00→20:57)
[2017-05-04] MEDS: DORZOLAMIDE 2% OPTH SOLN 200 DROP/10 ML BTLO LEFT EYE SCH ×3 (09:00→17:46)
[2017-05-04] MEDS: ENALAPRIL MALEATE 10 MG TAB PO SCH ×2 (09:03→20:57)
[2017-05-04] MEDS: PARoxetine HCL 20 MG TAB PO SCH (09:04)
[2017-05-04] MEDS: DOCUSATE SODIUM 100 MG CAP PO SCH ×2 (09:04→20:57)
[2017-05-04] MEDS: ASPIRIN EC 81 MG TABEC PO SCH (09:04)
[2017-05-04] MEDS: PROPRANOLOL HCL 20 MG TAB PO SCH ×3 (09:04→17:31)
[2017-05-04] MEDS: amLODIPine BESYLATE 5 MG TAB PO SCH (09:04)
[2017-05-04] MEDS: HYDROCHLOROTHIAZIDE 25 MG TAB PO SCH (09:05)
[2017-05-04] MEDS: MEMANTINE HCL 5 MG TAB PO SCH ×2 (09:06→20:57)
[2017-05-04] MEDS: PANTOPRAZOLE SOD 40 MG DELAYED RELEASE TAB PO SCH ×2 (09:06→20:57)
[2017-05-04] MEDS ORDERED: MAGNESIUM HYDROXIDE SUSP 30 ML CUP PO ONE (10:30)
[2017-05-04 12:00] VITALS: BP 124/65; PULSE 60; RESP 18; TEMP 96.8; O2SAT 96
[2017-05-04] MEDS: ENOXAPARIN SODIUM 30 MG/0.3 ML SYRINGE SQ SCH (12:23)
--- NOTE | 2017-05-04 13:59 | HHI.PR ---
Subjective Remarks Patient reports he is feeling well. Denies any issues. Tolerating diet. Objective Vitals Vital Signs Date Time Temp Pulse Resp B/P (MAP) Pulse Ox O2 Delivery O2 Flow Rate FiO2 05/04/17 12:00 96.8 60 18 124/65 (84) 96 05/04/17 08:00 96.6 71 18 122/58 (79) 97 05/04/17 00:00 96.7 59 18 125/60 (81) 95 05/03/17 20:00 97.9 58 20 143/66 (91) 96 05/03/17 16:00 96.4 65 17 124/68 (86) 95 I/O 05/03/17 05/03/17 05/03/17 05/04/17 05/04/17 05/04/17 07:00 15:00 23:00 07:00 15:00 23:00 Intake Total 540 ml 240 ml 480 ml Balance 540 ml 240 ml 480 ml Intake Oral 540 ml 240 ml 480 ml # Voids 7 1 6 5 # Bowel Movements 1 Result Diagram: 04/30/17 0455 05/01/17 0420 Objective Remarks GENERAL: This is a well-nourished, well-developed patient, in no apparent distress. CARDIOVASCULAR: Regular rate and rhythm without murmurs, gallops, or rubs. RESPIRATORY: Clear to auscultation. Breath sounds equal bilaterally. No wheezes , rales, or rhonchi. GASTROINTESTINAL: Abdomen binder in place, postop dressing intact. Normal bowel sounds MUSCULOSKELETAL: Extremities without clubbing, cyanosis, or edema. NEURO: Awake and alert. Moves all ext x4 A/P Problem List: (1) History of incisional hernia repair ICD Code: Z98.890 - Other specified postprocedural states; Z87.19 - Personal history of other diseases of the digestive system (2) Incisional hernia ICD Code: K43.2 - Incisional hernia without obstruction or gangrene (3) HTN (hypertension) ICD Code: I10 - Essential (primary) hypertension Status: Chronic (4) DM (diabetes mellitus) ICD Code: E11.9 - Type 2 diabetes mellitus without complications Status: Chronic (5) CAD (coronary artery disease) ICD Code: I25.10 - Atherosclerotic heart disease of [place] coronary artery without angina pectoris Status: Chronic (6) Alzheimer's dementia ICD Code: G30.9 - Alzheimer's disease, unspecified Status: Chronic (7) H/O: CVA (cerebrovascular accident) ICD Code: Z86.73 - Personal history of transient ischemic attack (TIA), and cerebral infarction without residual deficits Status: Chronic Assessment and Plan 75-year-old male with comorbid conditions significant for CVA, CAD, diabetes, hypertension, history of AAA repair admitted for abdominal incisional hernia repair. Hospitalist following for medical management of comorbid conditions. Status post incisional hernia repair: - Plan per surgery. - Pain control - Monitor bowel functions - Incentive spirometry - Encourage ambulation HTN: -Better controlled with increased dose of Norvasc. Continue HCTZ,propranolol. - Continue enalapril - Clonidine as needed. - Monitor BP Diabetes: - Hold metformin and Glipizide. - Sliding-scale insulin with Accu-Cheks - May resume oral Hypoglycemic agents on discharge. Dementia: Continue Aricept and Seroquel. Probable CKD: Stable. Continue to monitor. H/O CVA: Continue Aspirin CAD: Continue Aspirin, beta leanna. DVT prophylaxis: Lovenox Discharge Planning Per primary. He will need SNF. Hospitalist jose for [facility]. Frankie Osborne MD May 04, 2017 13:59
--- NOTE | 2017-05-04 15:56 | HHI.PR ---
Subjective Subjective Notes Patient reports no BM still Up to chair eating Pain better today Objective Vitals/I&O Vital Signs Date Time Temp Pulse Resp B/P (MAP) Pulse Ox O2 Delivery O2 Flow Rate FiO2 05/04/17 12:00 96.8 60 18 124/65 (84) 96 05/01/17 16:30 Nasal Cannula 3.00 Cardiovascular: Regular Lungs: Clear Abdomen: Other (midline incision with ANURAG --- abdomen soft non tender ) Extremities: No edema A/P Assessment and Plan 77 year old male POD5 abdominal wall reconstruction; modified components separation; mesh -Tolerating regular diet -+Flatus; no BM yet--- ordered MOM -OOB and mobilize; PT eval and treat -Plan for DC to [facility] tomorrow Attending Statement ANURAG dressing intact. Pt very stable, awaiting BM. Will order mag citrate. The exam, history, and the medical decision-making described in the above note were completed with the assistance of the mid-level provider. I reviewed and agree with the findings presented. I attest that I had a [id number] encounter with the patient on the same day, and personally performed and documented my assessment and findings in the medical record. America Bautista May 04, 2017 15:56 Tevin Palafox MD May 05, 2017 07:36
[2017-05-04 16:00] VITALS: BP 125/60; PULSE 58; RESP 19; TEMP 97.7; O2SAT 96
[2017-05-04 20:53] VITALS: BP 138/63; PULSE 61; RESP 18; TEMP 97.8; O2SAT 57; O2SAT 97
[2017-05-04] MEDS: QUEtiapine FUMARATE 25 MG TAB PO SCH (20:56)
[2017-05-04] MEDS: DONEPEZIL HCL 5 MG TAB PO SCH (20:57)
[2017-05-04] MEDS: ATORVASTATIN 80 MG TAB PO SCH (20:57)
[2017-05-04] MEDS: TAMSULOSIN HCL 0.4 MG CAP PO SCH (20:57)
[2017-05-04] MEDS ORDERED: MAGNESIUM CITRATE SOLN 300 ML BTL PO ONE (21:15)
[2017-05-05] VITALS: BP 109/55; PULSE 61; RESP 16; TEMP 96.8; O2SAT 95
[2017-05-05 08:00] VITALS: BP 136/69; PULSE 60; RESP 18; TEMP 96.7; O2SAT 95
[2017-05-05] MEDS: INSULIN ASPART SUPPLEMENTAL SCALE SQ SCH ×4 (08:00→21:00)
[2017-05-05] MEDS: amLODIPine BESYLATE 5 MG TAB PO SCH (08:44)
[2017-05-05] MEDS: ASPIRIN EC 81 MG TABEC PO SCH (08:45)
[2017-05-05] MEDS: PROPRANOLOL HCL 20 MG TAB PO SCH ×3 (08:48→19:09)
[2017-05-05] MEDS: PARoxetine HCL 20 MG TAB PO SCH (08:48)
[2017-05-05] MEDS: HYDROCHLOROTHIAZIDE 25 MG TAB PO SCH (08:48)
[2017-05-05] MEDS: MEMANTINE HCL 5 MG TAB PO SCH ×2 (08:48→21:18)
[2017-05-05] MEDS: PANTOPRAZOLE SOD 40 MG DELAYED RELEASE TAB PO SCH ×2 (08:48→21:18)
[2017-05-05 08:49] VITALS: O2SAT 95
[2017-05-05] MEDS: ENALAPRIL MALEATE 10 MG TAB PO SCH ×2 (08:50→21:18)
[2017-05-05] MEDS: DOCUSATE SODIUM 100 MG CAP PO SCH ×2 (09:00→21:17)
--- NOTE | 2017-05-05 09:59 | HHI.PR ---
Subjective Remarks Follow up hypertension. Patient has no complaints at this time. States that he is ready for discharge. Objective Vitals Vital Signs Date Time Temp Pulse Resp B/P (MAP) Pulse Ox O2 Delivery O2 Flow Rate FiO2 05/05/17 08:49 95 Nasal Cannula 3.00 05/05/17 08:00 96.7 60 18 136/69 (91) 95 05/05/17 00:00 96.8 61 16 109/55 (73) 95 05/04/17 22:04 Nasal Cannula 3.00 05/04/17 20:53 97.8 61 18 138/63 (88) 97 05/04/17 16:00 97.7 58 19 125/60 (81) 96 05/04/17 12:00 96.8 60 18 124/65 (84) 96 I/O 05/04/17 05/04/17 05/04/17 05/05/17 05/05/17 05/05/17 07:00 15:00 23:00 07:00 15:00 23:00 Intake Total 480 ml 360 ml Balance 480 ml 360 ml Intake Oral 480 ml 360 ml # Voids 5 6 3 # Bowel Movements 2 Result Diagram: 05/01/17 0420 Imaging Last Impressions Chest X-Ray 05/01/17 0000 Signed Impressions: Service Date/Time: Monday, May 01, 2017 14:42 - CONCLUSION: Bibasilar densities greater left lower lobe. Dylan Monroy MD Objective Remarks General: Elderly male in no acute distress. Heart: Regular rate and rhythm. No murmur. Lungs: Clear to auscultation bilaterally. No wheezes, rales, or rhonchi. Breathing is nonlabored. Abdomen: Abdominal binder in place. Extremities: No lower extremity edema. No calf tenderness. Psych: Alert and oriented. Urinary Catheter: No Vascular Central Line Catheter: No A/P Problem List: (1) History of incisional hernia repair ICD Code: Z98.890 - Other specified postprocedural states; Z87.19 - Personal history of other diseases of the digestive system (2) Incisional hernia ICD Code: K43.2 - Incisional hernia without obstruction or gangrene (3) HTN (hypertension) ICD Code: I10 - Essential (primary) hypertension Status: Chronic (4) DM (diabetes mellitus) ICD Code: E11.9 - Type 2 diabetes mellitus without complications Status: Chronic (5) CAD (coronary artery disease) ICD Code: I25.10 - Atherosclerotic heart disease of [place] coronary artery without angina pectoris Status: Chronic (6) Alzheimer's dementia ICD Code: G30.9 - Alzheimer's disease, unspecified Status: Chronic (7) H/O: CVA (cerebrovascular accident) ICD Code: Z86.73 - Personal history of transient ischemic attack (TIA), and cerebral infarction without residual deficits Status: Chronic Assessment and Plan 1. Status post incisional hernia repair: Management per general surgery. Continue pain control, bowel regimen. Continue incentive spirometry. 2. Hypertension: Continue enalapril, HCTZ, Norvasc, propranolol. Clonidine as needed. BP control improved. 3. Diabetes mellitus: Metformin and glipizide on hold. Monitor Accu-Cheks and cover with sliding scale insulin. Glucose elevated. Resume oral hypoglycemic agents on discharge. 4. Dementia: Continue Aricept, Seroquel. 5. Probable chronic kidney disease: Stable. 6. History of CVA: Continue aspirin. 7. Coronary artery disease: Continue aspirin, beta leanna. 8. DVT prophylaxis: Lovenox. Discharge Planning Per general surgery. Patient will need correction facility. Hospitalist clear for discharge. Albert Jo MD May 05, 2017 09:59
[2017-05-05 12:00] VITALS: BP 132/59; PULSE 54; RESP 19; TEMP 96.6; O2SAT 97
[2017-05-05] MEDS: ENOXAPARIN SODIUM 30 MG/0.3 ML SYRINGE SQ SCH (12:15)
[2017-05-05] MEDS: DORZOLAMIDE 2% OPTH SOLN 200 DROP/10 ML BTLO LEFT EYE SCH ×3 (12:44→19:09)
--- NOTE | 2017-05-05 15:38 | HHI.DS ---
Discharge Summary Admission Date Apr 29, 2017 at 14:10 Discharge Date: May 05, 2017 Admitting Diagnosis Brief History 77 year old male POD5 abdominal wall reconstruction; modified components separation; mesh CBC/BMP: 05/01/17 0420 PE at Discharge Resting in bed ; Alert and awke Cardio: RRR Resp: CTAB Abd : ANURAG removed; kalyani intact; left MAHAD Hospital Course This is a 77 year old male POD5 abdominal wall reconstruction; modified components separation; mesh. The patient was advanced to a regular diet. The patient's pain was controlled using oral pain medications. The patient was able to ambulate with assistance. The patient did have bowel function prior to discharge. The patient will be discharged to a longterm facility. The patient will follow up Thursday. Pt Condition on Discharge: Good Discharge Disposition: Discharge Home Discharge Instructions DIET: Follow Instructions for: As Tolerated, No Restrictions Activities you can perform: See Additionl Instruction Other Activity Instructions: Okay to shower; pat incision dry No bathtubs Attending Statement The exam, history, and the medical decision-making described in the above note were completed with the assistance of the mid-level provider. I reviewed and agree with the findings presented. I attest that I had a [id number] encounter with the patient on the same day, and personally performed and documented my assessment and findings in the medical record. America Bautista May 05, 2017 15:38 Tevin Palafox MD May 05, 2017 16:53
[2017-05-05 16:00] VITALS: BP 139/66; PULSE 97; RESP 19; TEMP 97.6; O2SAT 95
[2017-05-05 20:00] VITALS: BP 121/56; PULSE 66; RESP 16; TEMP 97.1; O2SAT 93
[2017-05-05] MEDS: ATORVASTATIN 80 MG TAB PO SCH (21:18)
[2017-05-05] MEDS: QUEtiapine FUMARATE 25 MG TAB PO SCH (21:18)
[2017-05-05] MEDS: TAMSULOSIN HCL 0.4 MG CAP PO SCH (21:18)
[2017-05-05] MEDS: DONEPEZIL HCL 5 MG TAB PO SCH (21:18)
[2017-05-06 00:50] VITALS: BP 110/56; PULSE 68; RESP 16; TEMP 97.7; O2SAT 92
[2017-05-06 05:15] VITALS: O2SAT 93
--- NOTE | 2017-05-06 07:30 | HHI.PR ---
Subjective Subjective Notes sleeping soundly. Wakes easily, has no complaints. Anxious to get to rehab. Objective Vitals/I&O Vital Signs Date Time Temp Pulse Resp B/P (MAP) Pulse Ox O2 Delivery O2 Flow Rate FiO2 05/06/17 05:15 93 Nasal Cannula 3.00 05/06/17 00:50 97.7 68 16 110/56 (74) Abdomen: Non-distended, Non-tender, Other (Midline incision healing well with kalyani, no erythema or drainage.) Extremities: No edema, Perfused A/P Assessment and Plan Postop Incisional hernia repair. doing well. Awaiting transfer to rehab. Tevin Palafox MD May 06, 2017 07:30
[2017-05-06 08:00] VITALS: BP 104/53; PULSE 71; RESP 16; TEMP 96.5; O2SAT 93
[2017-05-06] MEDS: INSULIN ASPART SUPPLEMENTAL SCALE SQ SCH (08:00)
[2017-05-06 08:18] VITALS: O2SAT 94
[2017-05-06] MEDS: HYDROCHLOROTHIAZIDE 25 MG TAB PO SCH (09:40)
[2017-05-06] MEDS: PANTOPRAZOLE SOD 40 MG DELAYED RELEASE TAB PO SCH (09:40)
[2017-05-06] MEDS: DOCUSATE SODIUM 100 MG CAP PO SCH (09:40)
[2017-05-06] MEDS: PROPRANOLOL HCL 20 MG TAB PO SCH ×2 (09:40→12:44)
[2017-05-06] MEDS: amLODIPine BESYLATE 5 MG TAB PO SCH (09:40)
[2017-05-06] MEDS: MEMANTINE HCL 5 MG TAB PO SCH (09:40)
[2017-05-06] MEDS: ENALAPRIL MALEATE 10 MG TAB PO SCH (09:40)
[2017-05-06] MEDS: ASPIRIN EC 81 MG TABEC PO SCH (09:41)
[2017-05-06] MEDS: PARoxetine HCL 20 MG TAB PO SCH (09:41)
[2017-05-06 12:00] VITALS: BP 138/69; PULSE 60; RESP 17; TEMP 97.8; O2SAT 94
[2017-05-06] MEDS: ENOXAPARIN SODIUM 30 MG/0.3 ML SYRINGE SQ SCH (12:44)
--- NOTE | 2017-05-06 13:26 | HHI.PR ---
Subjective Remarks Follow up hypertension, diabetes. Patient has had slightly lower oxygen saturations. He denies any dyspnea or chest pain. He is currently on room air. When I was examining the patient's lungs, he tried to sit up and strained to do so. I advised him to roll to his side instead due to the recent abdominal surgery. He did have his abdominal binder in place. He denies any abdominal pain at this time. Objective Vitals Vital Signs Date Time Temp Pulse Resp B/P (MAP) Pulse Ox O2 Delivery O2 Flow Rate FiO2 05/06/17 12:00 97.8 60 17 138/69 (92) 94 05/06/17 08:18 94 Nasal Cannula 3.00 05/06/17 08:00 96.5 71 16 104/53 (70) 93 05/06/17 05:15 93 Nasal Cannula 3.00 05/06/17 00:50 97.7 68 16 110/56 (74) 92 05/05/17 20:00 97.1 66 16 121/56 (77) 93 05/05/17 16:00 97.6 97 19 139/66 (90) 95 I/O 05/05/17 05/05/17 05/05/17 05/06/17 05/06/17 05/06/17 07:00 15:00 23:00 07:00 15:00 23:00 Intake Total 820 ml Balance 820 ml Intake Oral 820 ml # Voids 3 7 1 1 # Bowel Movements 2 2 Imaging Last Impressions Chest X-Ray 05/01/17 0000 Signed Impressions: Service Date/Time: Monday, May 01, 2017 14:42 - CONCLUSION: Bibasilar densities greater left lower lobe. Dylan Monroy MD Objective Remarks General: Elderly male in no acute distress. Heart: Regular rate and rhythm. No murmur. Lungs: Clear to auscultation bilaterally. No wheezes, rales, or rhonchi. Breathing is nonlabored. Abdomen: Abdominal binder in place. Nontender. Extremities: No lower extremity edema. No calf tenderness. Psych: Alert and oriented. Procedures 04/29/17 Ventral incisional hernia repair with component separation, retrorectus mesh repair with abdominal wall reconstruction. Urinary Catheter: No Vascular Central Line Catheter: No A/P Problem List: (1) History of incisional hernia repair ICD Code: Z98.890 - Other specified postprocedural states; Z87.19 - Personal history of other diseases of the digestive system (2) Incisional hernia ICD Code: K43.2 - Incisional hernia without obstruction or gangrene (3) HTN (hypertension) ICD Code: I10 - Essential (primary) hypertension Status: Chronic (4) DM (diabetes mellitus) ICD Code: E11.9 - Type 2 diabetes mellitus without complications Status: Chronic (5) CAD (coronary artery disease) ICD Code: I25.10 - Atherosclerotic heart disease of [place] coronary artery without angina pectoris Status: Chronic (6) Alzheimer's dementia ICD Code: G30.9 - Alzheimer's disease, unspecified Status: Chronic (7) H/O: CVA (cerebrovascular accident) ICD Code: Z86.73 - Personal history of transient ischemic attack (TIA), and cerebral infarction without residual deficits Status: Chronic Assessment and Plan 1. Status post incisional hernia repair: Management per general surgery. Continue pain control, bowel regimen. Continue incentive spirometry. 2. Hypertension: Continue enalapril, HCTZ, Norvasc, propranolol. Clonidine as needed. BP control improved. 3. Diabetes mellitus: Metformin and glipizide on hold. Monitor Accu-Cheks and cover with sliding scale insulin. Glucose elevated. Resume oral hypoglycemic agents on discharge. 4. Dementia: Continue Aricept, Seroquel. 5. Probable chronic kidney disease: Stable. 6. History of CVA: Continue aspirin. 7. Coronary artery disease: Continue aspirin, beta leanna. 8. DVT prophylaxis: Lovenox. During exam, the patient strained heavily to try to sit up before I was able to get him to roll to his side. I spoke with GRAHAM Avalos, regarding the patient straining to sit up during my exam. The patient denied tenderness on palpation of the abdomen. The abdominal binder remained in place. I also advised the patient's nurse to monitor him for any change in symptoms/vitals. Discharge Planning Discharge pending to SNF, awaiting insurance authorization. Albert Jo MD May 06, 2017 13:26
--- NOTE | 2017-05-06 13:52 | HHI.FF ---
Face to Face Verification Diagnosis: (1) History of incisional hernia repair Physical Therapy Order: Evaluate and Treat, Improve ambulation, Strength and gait training Instructions: No restrictions Home Health Nursing Order: Wound care and dressing changes Instructions: Okay to leave incision open to air Abdominal binder I have seen patient Edenilson Jaramillo on 05/06/17. My clinical findings support the need for the requested home health care services because: Limited ability to care for self High risk of falls I certify that my clinical findings support that this patient is homebound because: Post-op weakness America Bautista May 06, 2017 13:52
== END 2017-05-06 15:31 | disposition home health service (06) | DRG 355 ==
LOC: HSDC 08:14 → HSDI 14:10 → N07B 16:10 → N07A 05-01 17:44
PROVIDERS: ADMIT Surgery Trauma Surgery; ATTEND Surgery Trauma Surgery
PROC: 3E0T3BZ Introduction of Anesthetic Agent into Peripheral Nerves and Plexi, Percutaneous Approach (ICD-10-PCS; 2017-04-29)
PROC: 0WUF0JZ Supplement Abdominal Wall with Synthetic Substitute, Open Approach (ICD-10-PCS; principal; 2017-04-29 10:48)
DX: K43.2 Incisional hernia without obstruction or gangrene (principal); F02.80 Dementia in other diseases classified elsewhere, unspecified severity, without behavioral disturbance, psychotic disturbance, mood disturbance, and anxiety; E11.22 Type 2 diabetes mellitus with diabetic chronic kidney disease; G30.9 Alzheimer's disease, unspecified; I25.10 Atherosclerotic heart disease of native coronary artery without angina pectoris; I12.9 Hypertensive chronic kidney disease with stage 1 through stage 4 chronic kidney disease, or unspecified chronic kidney disease; K66.0 Peritoneal adhesions (postprocedural) (postinfection); N18.9 Chronic kidney disease, unspecified; Z86.73 Personal history of transient ischemic attack (TIA), and cerebral infarction without residual deficits; F17.210 Nicotine dependence, cigarettes, uncomplicated; N40.1 Benign prostatic hyperplasia with lower urinary tract symptoms; R35.0 Frequency of micturition; K21.9 Gastro-esophageal reflux disease without esophagitis; Z79.84 Long term (current) use of oral hypoglycemic drugs
CPT/HCPCS: 71045; 76937; 80048; 82948; 85025; 93005; 94150; C1765; C1781; C9290; J0131; J0690; J1100; J1650; J1815; J2270; J2405; J2710; J3010; J3480; J7120

== ENCOUNTER 2017-05-25 11:21 | Inpatient (IN) | payer OTHER, MEDICARE ==
[~2017-05-25] VITALS: Ht 175.3 cm; Wt 68.9 kg
[2017-05-25] VITALS (13 sets, daily range): BP systolic 66–141; BP diastolic 45–69; PULSE 57–75; RESP 16–18; TEMP 96.6–97.8; O2SAT 95–99
[~2017-05-25 11:21] MED LIST changes: +HYDR-3516 PO
[2017-05-25] MEDS ORDERED: SODIUM CHLOR 0.9% 1000 ML INJ 1,000 ML IV ONE ×3 (12:15→14:15)
--- NOTE | 2017-05-25 12:18 | PD ---
HPI Chief Complaint: General Weakness Time Seen by Provider: 11:58 Travel History International Travel<30 days: No Contact w/Intl Traveler<30days: No Traveled to known affect area: No History of Present Illness HPI This 77-year-old male was sent from Dr. Arenas's office because of low blood pressure. He has a history of Alzheimer's disease. He says that he has had no appetite and has not been eating or drinking. He was admitted to the hospital on April 29 and had repair of an abdominal incisional hernia. He was then sent to a rehabilitation facility. He apparently was released from the rehabilitation facility last Thursday. He went to his home reportedly with a security project manager. I have been able to speak with a security project manager by phone. She apparently is a friend. She says that the patient fell yesterday and hit his head. He also hit his nose. She says he tried to drive and she took away his keys. She says that this morning he took multiple pills and she has no idea what he took. She thinks that he might have taken yesterday's medications as well as today's. the patient himself has no idea what he took. He apparently has a history of hypertension. Medications listed on his chart include lisinopril 40 twice a day and Inderal 20 ER 3 times a day among others. The patient does smoke cigarettes. 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, MEMORY LOSS ) Psychiatric: Yes (HAS PERIODS WHERE HE FEEL ANXIOUS; DEPRESSION ) Reproductive: No Respiratory: No Thyroid Disease: No Ulcer: Yes Tetanus Vaccination: Unknown Influenza Vaccination: Yes Past Surgical History Abdominal Aneurysm Repair: Yes Abdominal Surgery: Yes (AAA REPAIR, CHRIS INGUINAL HERNIA REPAIR) AICD: No Appendectomy: Yes Body Medical Devices: CARDIAC STENTS X 4 Cardiac Surgery: Yes (cardiac stents x 4) Coronary Stent: Yes Ear Surgery: No Endocrine Surgery: No Eye Surgery: No Genitourinary Surgery: Yes (bladder lift) Gynecologic Surgery: No Joint Replacement: No Oral Surgery: No Pacemaker: No Thoracic Surgery: No Tonsillectomy: Yes Other Surgery: Yes Social History Alcohol Use: No Tobacco Use: Yes (1PPD) Substance Use: No Allergies-Medications (Allergen,Severity, Reaction): Coded Allergies: No Known Allergies (Verified Allergy, Unknown, 05/25/17) Reported Meds & Prescriptions Reported Meds & Active Scripts Active Hydrocodone-Acetamin 5-325 mg (Hydrocodone/Acetaminophen) 5 Mg-325 Mg Tablet 1 Tab PO Q4H PRN Reported Flomax (Tamsulosin HCl) 0.4 Mg Cap 0.4 Mg PO HS Enalapril (Enalapril Maleate) 20 Mg Tab 40 Mg PO BID Inderal LA 24 HR (Propranolol HCl) 60 Mg Cap 20 Mg PO TID Norvasc (Amlodipine Besylate) 5 Mg Tab 5 Mg PO DAILY Seroquel (Quetiapine Fumarate) 50 Mg Tab 50 Mg PO HS Lipitor (Atorvastatin Calcium) 80 Mg Tab 80 Mg PO HS Paroxetine (Paroxetine HCl) 40 Mg Tab 40 Mg PO DAILY Pantoprazole (Pantoprazole Sodium) 40 Mg Tab 40 Mg PO BID Metformin (Metformin HCl) 1,000 Mg Tab 1,000 Mg PO TIDAC Namenda (Memantine) 5 Mg Tab 5 Mg PO BID Hydrochlorothiazide 25 Mg Tab 25 Mg PO DAILY Glipizide 10 Mg Tab 10 Mg PO BIDAC Take 30 minutes before a meal Trusopt Opth Drops (Dorzolamide HCl) 2% Soln 1 Drop LEFT EYE TID Donepezil 5 Mg Tab 5 Mg PO HS Aspirin EC (Aspirin) 81 Mg Tabdr 81 Mg PO DAILY Review of Systems ROS Limitations: Poor Historian General / Constitutional: No: Fever, Chills Eyes: No: Diploplia HENT: No: Headaches, Vertigo Cardiovascular: No: Chest Pain or Discomfort, Palpitations Respiratory: No: Cough, Shortness of Breath Gastrointestinal: No: Vomiting, Diarrhea Genitourinary: No: Urgency Musculoskeletal: No: Myalgias, Arthralgias Skin: No Rash Neurologic: Positive: Weakness Psychiatric: No: Anxiety Endocrine: No: Heat Intolerance Hematologic/Lymphatic: No: Easy Bruising Physical Exam Narrative GENERAL: Elderly male SKIN: Focused skin assessment warm/dry. HEAD: Atraumatic. Normocephalic. EYES: Pupils equal and round. No scleral icterus. No injection or drainage. ENT: No nasal bleeding or discharge. Mucous membranes dry NECK: Trachea midline. No JVD. CARDIOVASCULAR: Regular rate and rhythm. No murmur appreciated. RESPIRATORY: No accessory muscle use. Clear to auscultation. Breath sounds equal bilaterally. GASTROINTESTINAL: Abdomen soft, non-tender, nondistended. Hepatic and splenic margins not palpable. MUSCULOSKELETAL: No obvious deformities. No clubbing. No cyanosis. No edema. NEUROLOGICAL: Awake and alert. No obvious cranial nerve deficits. Motor grossly within normal limits. Patient is not oriented to the date PSYCHIATRIC: Appropriate mood and affect; insight limited Data Data Last Documented VS Vital Signs Date Time Temp Pulse Resp B/P (MAP) Pulse Ox O2 Delivery O2 Flow Rate FiO2 05/25/17 13:35 101/54 (70) 05/25/17 11:25 97.8 57 16 99 Orders Orders Electrocardiogram (05/25/17 12:06) Complete Blood Count With Diff (05/25/17 12:06) Comprehensive Metabolic Panel (05/25/17 12:06) Prothrombin Time / Inr (Pt) (05/25/17 12:06) Act Partial Throm Time (Ptt) (05/25/17 12:06) Blood Culture (05/25/17 12:06) Urinalysis - C+S If Indicated (05/25/17 12:06) Magnesium (Mg) (05/25/17 12:06) Chest, Single Ap (05/25/17 12:06) Sodium Chlor 0.9% 1000 Ml Inj (Ns 1000 M (05/25/17 12:15) Sodium Chlor 0.9% 1000 Ml Inj (Ns 1000 M (05/25/17 12:15) Lactic Acid Sepsis Protocol (05/25/17 12:06) Ct Brain W/O Iv Contrast(Rout) (05/25/17 12:42) Alcohol (Ethanol) (05/25/17 12:45) Sodium Chlor 0.9% 1000 Ml Inj (Ns 1000 M (05/25/17 14:15) Labs Laboratory Tests Test 05/25/17 12:00 05/25/17 12:20 White Blood Count 7.6 TH/MM3 Red Blood Count 3.48 MIL/MM3 Hemoglobin 11.0 GM/DL Hematocrit 31.5 % Mean Corpuscular Volume 90.6 FL Mean Corpuscular Hemoglobin 31.6 PG Mean Corpuscular Hemoglobin Concent 34.9 % Red Cell Distribution Width 14.6 % Platelet Count 182 TH/MM3 Mean Platelet Volume 10.0 FL Neutrophils (%) (Auto) 59.7 % Lymphocytes (%) (Auto) 27.4 % Monocytes (%) (Auto) 8.5 % Eosinophils (%) (Auto) 3.6 % Basophils (%) (Auto) 0.8 % Neutrophils # (Auto) 4.5 TH/MM3 Lymphocytes # (Auto) 2.1 TH/MM3 Monocytes # (Auto) 0.6 TH/MM3 Eosinophils # (Auto) 0.3 TH/MM3 Basophils # (Auto) 0.1 TH/MM3 CBC Comment DIFF FINAL Differential Comment Prothrombin Time 10.0 SEC Prothromb Time International Ratio 1.0 RATIO Activated Partial Thromboplast Time 24.2 SEC Blood Urea Nitrogen 41 MG/DL Creatinine 2.00 MG/DL Random Glucose 105 MG/DL Total Protein 7.3 GM/DL Albumin 3.2 GM/DL Calcium Level 9.1 MG/DL Magnesium Level 1.9 MG/DL Alkaline Phosphatase 116 U/L Aspartate Amino Transf (AST/SGOT) 18 U/L Alanine Aminotransferase (ALT/SGPT) 12 U/L Total Bilirubin 0.3 MG/DL Sodium Level 139 MEQ/L Potassium Level 4.7 MEQ/L Chloride Level 106 MEQ/L Carbon Dioxide Level 22.6 MEQ/L Anion Gap 10 MEQ/L Estimat Glomerular Filtration Rate 32 ML/MIN Lactic Acid Level 4.4 mmol/L [facility] Medical Decision Making Medical Screen Exam Complete: Yes Emergency Medical Condition: Yes Medical Record Reviewed: Yes Differential Diagnosis Differential includes sepsis, dehydration, overmedication Narrative Course There is no fever. White count is normal. His electrolytes showed BUN of 41 and creatinine of 2.0 consistent with dehydration. These are higher than they were recently and he was hospitalized. His lactate level is 4.4. He has been given IV fluids and his blood pressure has come up. His EKG shows sinus bradycardia at a rate of 55 without acute change. Diagnosis Primary Impression: Dehydration Michel Monteiro MD May 25, 2017 12:18
[2017-05-25 12:34] LABS: AUTOMATED NEUTROPHIL # 4.5 TH/MM3 (1.8-7.7); BASOPHIL # 0.1 TH/MM3 (0-0.2); BASOPHIL % 0.8 % (0.0-2.0); EOSINOPHIL # 0.3 TH/MM3 (0-0.4); EOSINOPHIL % 3.6 % (0.0-4.0); HEMATOCRIT 31.5 % (39.0-51.0); LYMPH % 27.4 % (9.0-44.0); LYMPHOCYTE # 2.1 TH/MM3 (1.0-4.8); MEAN CELL VOLUME 90.6 FL (80.0-100.0); MEAN CORPUSCULAR HEMOGLOBIN 31.6 PG (27.0-34.0); MEAN CORPUSCULAR HGB CONC 34.9 % (32.0-36.0); MONO % 8.5 % (0.0-8.0); MONOCYTE # 0.6 TH/MM3 (0-0.9); NEUT % 59.7 % (16.0-70.0); PLATELET COUNT 182 TH/MM3 (150-450); RED BLOOD COUNT 3.48 MIL/MM3 (4.50-5.90); RED CELL DISTRIBUTION WIDTH 14.6 % (11.6-17.2); WHITE BLOOD COUNT 7.6 TH/MM3 (4.0-11.0)
[2017-05-25 12:43] LABS: CHLORIDE 106 MEQ/L (98-107); SODIUM (NA) 139 MEQ/L (136-145)
[2017-05-25 12:46] LABS: BICARBONATE 22.6 MEQ/L (21.0-32.0); CALCIUM 9.1 MG/DL (8.5-10.1); GLUCOSE,RANDOM 105 MG/DL (74-106); MAGNESIUM 1.9 MG/DL (1.5-2.5)
[2017-05-25 12:47] LABS: ALBUMIN 3.2 GM/DL (3.4-5.0); BLOOD UREA NITROGEN 41 MG/DL (7-18)
[2017-05-25 12:49] LABS: ALT (GPT) 12 U/L (12-78)
[2017-05-25 12:50] LABS: AST (GOT) 18 U/L (15-37); GLOMERULAR FILTRATION RATE 32 ML/MIN (>89)
[2017-05-25 12:51] LABS: TOTAL BILIRUBIN ADULT 0.3 MG/DL (0.2-1.0); TOTAL PROTEIN 7.3 GM/DL (6.4-8.2)
[2017-05-25 12:52] LABS: ALKALINE PHOSPHATASE 116 U/L (45-117)
[2017-05-25 13:14] LABS: LACTIC ACID SEPSIS PROTOCOL 4.4 mmol/L (0.4-2.0)
--- NOTE | 2017-05-25 14:06 | RADRPT ---
EXAM DATE/TIME: 05/25/2017 12:10 [facility] COMPARISON: CHEST SINGLE AP, May 01, 2017, 14:42. INDICATIONS : Short of breath MEDICAL HISTORY : Hypertension. Cardiovascular disease Diabetes mellitus type 2. SURGICAL HISTORY : Hernia ENCOUNTER: Initial ACUITY: 1 week PAIN SCORE: 0/10 LOCATION: Bilateral chest FINDINGS: A single view of the chest demonstrates the lungs to be symmetrically aerated without evidence of mas s, infiltrate or effusion. The cardiomediastinal contours are unremarkable. Osseous structures are intact. CONCLUSION: No evidence of acute cardiopulmonary process. Alejandro Bond MD on May 25, 2017 at 12:24 Board Certified Radiologist. This report was verified electronically.
[2017-05-25] MEDS ORDERED: BISACODYL 10 MG SUPP RECTAL PRN (14:45)
[2017-05-25] MEDS ORDERED: SODIUM CHLORIDE 0.9% FLUSH 10 ML FLUSH IV FLUSH PRN (14:45)
[2017-05-25] MEDS ORDERED: NALOXONE HCL 0.4 MG/ML AMP IV PUSH PRN (14:45)
[2017-05-25] MEDS ORDERED: MAGNESIUM HYDROXIDE SUSP 30 ML CUP PO PRN (14:45)
[2017-05-25] MEDS ORDERED: MORPHINE SULFATE 2 MG/ML INJ IV PUSH PRN ×2 (14:45)
[2017-05-25] MEDS ORDERED: DEXTROSE 50% IN WATER 50 ML VIAL(D50) IV PUSH PRN (14:45)
[2017-05-25] MEDS ORDERED: oxyCODONE/ACETAMINOPHEN 5 MG/325 MG TAB PO PRN (14:45)
[2017-05-25] MEDS ORDERED: LACTULOSE SYRUP 20 GM/30 ML CUP PO PRN (14:45)
[2017-05-25] MEDS ORDERED: ACETAMINOPHEN 325 MG TAB PO PRN ×2 (14:45)
[2017-05-25] MEDS ORDERED: PROCHLORPERAZINE 25 MG SUPP RECTAL PRN (14:45)
[2017-05-25] MEDS ORDERED: ONDANSETRON HCL 4 MG/2 ML VIAL IVP PRN (14:45)
[2017-05-25] MEDS ORDERED: cefTRIAXone INJ 1,000 MG in SODIUM CHLORIDE 0.9% INJ 100 ML IV ONE (14:45)
[2017-05-25] MEDS ORDERED: oxyCODONE/ACETAMINOPHEN 10 MG/325 MG TAB PO PRN (14:45)
[2017-05-25] MEDS ORDERED: GLUCAGON 1 MG/ML VIAL OTHER PRN (14:45)
--- NOTE | 2017-05-25 15:22 | RADRPT ---
EXAM DATE/TIME: 05/25/2017 13:42 [facility] COMPARISON: CT BRAIN W/O CONTRAST, October 23, 2015, 13:49. INDICATIONS : Weakness. RADIATION DOSE: 58.81 CTDIvol (mGy) MEDICAL HISTORY : Cardiovascular disease. Hypertension. Diabetes. SURGICAL HISTORY : Coronary artery stent. Abdominal aortic aneurysm repair. ENCOUNTER: Initial ACUITY: 1 day PAIN SCALE: 0/10 LOCATION: cranial TECHNIQUE: Multiple contiguous axial images were obtained of the head. Using automated exposure control and adj ustment of the mA and/or kV according to patient size, radiation dose was kept as low as reasonably a chievable to obtain optimal diagnostic quality images. DICOM format image data is available electro nically for review and comparison. FINDINGS: Old ischemic changes left sylvian region stable in interval. Lacunar infarcts basalganglia right side Ventricle size appropriate There is no parenchymal hemorrhage, mass effect or acute infarction. There are no extra-axial fluid collections appreciated Posterior fossa is unremarkable Air-fluid level present in the left maxillary sinus. CONCLUSION: Old ischemic changes on the left sylvian region and right basalganglia otherwise nega martínez Staley MD FACR on May 25, 2017 at 15:19 Board Certified Radiologist. This report was verified electronically.
[2017-05-25 16:59] LABS: TROPONIN I LESS THAN 0.02 NG/ML (0.02-0.05)
--- NOTE | 2017-05-25 17:40 | HHI.HP ---
[facility] Service [facility] Primary Care Physician Pranav Lebron MD Admission Diagnosis Dehydration Diagnoses: (1) Dehydration Chief Complaint: Low blood pressure Travel History International Travel<30 Days: No Contact w/Intl Traveler <30 Da: No Traveled to Known Affected Are: No History of Present Illness This is a 77-year-old male patient with a known medical history of Alzheimer's dementia, CAD with cardiac stent placement, hypertension, diabetes who presented to the ED after presenting to his PCPs office with low blood pressure. Patient is a relatively poor historian, is confused as to time, place and situation. He is unaware of what brought him to the hospital or even being in the hospital. No family or friend at bedside. After review of records patient was admitted to the hospital late March and underwent an abdominal incisional hernia repair. Supposedly was sent to the rehab and released from rehab last Thursday. Patient has a monotype caster at home, who is not at bedside at this time. There are reports that patient fell yesterday, patient states he remembers this but does not remember the occurrences that led up to the fall. Does state he had his head and his nose. Supposedly patient took a couple medications this morning, monotype caster is unaware of which medications these were. Patient denies any recent illness including fever, chills, cough, shortness of breath, abdominal pain, nausea, vomiting or diarrhea. Upon presentation head CT was performed showing old ischemic changes , no acute findings. GFR 32, creatinine 2.0 on presentation. Review of Systems Constitutional: DENIES: Diaphoretic episodes, Fatigue, Fever, Chills Eyes: DENIES: Blurred vision, Diplopia Respiratory: DENIES: Cough, Sputum production, Shortness of breath Cardiovascular: COMPLAINS OF: Syncope Gastrointestinal: DENIES: Abdominal pain, Black stools, Bloody stools, Constipation, Diarrhea, Nausea, Vomiting Psychiatric: DENIES: Anxiety Except as stated in HPI: all other systems reviewed are Neg Past Family Social History Past Medical History Hypertension History of CVA Diabetes CAD with cardiac stent placement GERD Alzheimer's disease Past Surgical History AAA repair Bilateral inguinal hernia repair History of cardiac stent placement 4 Tonsillectomy Reported Medications Active Hydrocodone-Acetamin 5-325 mg (Hydrocodone/Acetaminophen) 5 Mg-325 Mg Tablet 1 Tab PO Q4H PRN Reported Flomax (Tamsulosin HCl) 0.4 Mg Cap 0.4 Mg PO HS Enalapril (Enalapril Maleate) 20 Mg Tab 40 Mg PO BID Inderal LA 24 HR (Propranolol HCl) 60 Mg Cap 20 Mg PO TID Norvasc (Amlodipine Besylate) 5 Mg Tab 5 Mg PO DAILY Seroquel (Quetiapine Fumarate) 50 Mg Tab 50 Mg PO HS Lipitor (Atorvastatin Calcium) 80 Mg Tab 80 Mg PO HS Paroxetine (Paroxetine HCl) 40 Mg Tab 40 Mg PO DAILY Pantoprazole (Pantoprazole Sodium) 40 Mg Tab 40 Mg PO BID Metformin (Metformin HCl) 1,000 Mg Tab 1,000 Mg PO TIDAC Namenda (Memantine) 5 Mg Tab 5 Mg PO BID Hydrochlorothiazide 25 Mg Tab 25 Mg PO DAILY Glipizide 10 Mg Tab 10 Mg PO BIDAC Take 30 minutes before a meal Trusopt Opth Drops (Dorzolamide HCl) 2% Soln 1 Drop LEFT EYE TID Donepezil 5 Mg Tab 5 Mg PO HS Aspirin EC (Aspirin) 81 Mg Tabdr 81 Mg PO DAILY Allergies: Coded Allergies: No Known Allergies (Verified Allergy, Unknown, 05/25/17) Active Ordered Medications Current Medications Medications (Trade) Dose Ordered Sig/Jer Route Start Time Stop Time Status Last Admin Sodium Chloride 1,000 ml @ 200 mls/hr Q5H ONCE IV 05/25/17 14:15 05/25/17 19:14 05/25/17 15:14 (D50w (Vial) Inj) 50 ml UNSCH PRN IV PUSH 05/25/17 14:45 (Glucagon Inj) 1 mg UNSCH PRN OTHER 05/25/17 14:45 (NovoLOG SUPPLEMENTAL SCALE) 1 ACHS SLIDING SCALE SQ 05/25/17 17:00 (Ecotrin Ec) 81 mg DAILY PO 05/26/17 09:00 (Lipitor) 80 mg HS PO 05/25/17 21:00 (Aricept) 5 mg HS PO 05/25/17 21:00 (Trusopt 2% Opth Soln) 1 drop TID LEFT EYE 05/25/17 18:00 (Namenda) 5 mg BID PO 05/25/17 21:00 (Protonix) 40 mg BID PO 05/25/17 21:00 (Paxil) 40 mg DAILY PO 05/26/17 09:00 (Flomax) 0.4 mg HS PO 05/25/17 21:00 (SEROquel) 50 mg HS PO 05/25/17 21:00 Sodium Chloride 1,000 ml @ 100 mls/hr Q10H IV 05/25/17 14:42 (NS Flush) 2 ml UNSCH PRN IV FLUSH 05/25/17 14:45 (NS Flush) 2 ml BID IV FLUSH 05/25/17 21:00 (Tylenol) 650 mg Q4H PRN PO 05/25/17 14:45 (Zofran Inj) 4 mg Q6H PRN IVP 05/25/17 14:45 (Compazine Supp) 25 mg Q12H PRN RECTAL 05/25/17 14:45 (Heparin Inj) 5,000 units Q8HR SQ 05/25/17 22:00 (Tylenol) 650 mg Q6H PRN PO 05/25/17 14:45 (Percocet 5-325 Mg) 1 tab Q6H PRN PO 05/25/17 14:45 (Percocet 10-325 Mg) 1 tab Q6H PRN PO 05/25/17 14:45 (Morphine Inj) 2 mg Q3H PRN IV PUSH 05/25/17 14:45 (Morphine Inj) 4 mg Q3H PRN IV PUSH 05/25/17 14:45 (Narcan Inj) 0.4 mg UNSCH PRN IV PUSH 05/25/17 14:45 (Katt-Colace) 1 tab BID PO 05/25/17 21:00 (Milk Of Magnesia Liq) 30 ml Q12H PRN PO 05/25/17 14:45 (Senokot) 17.2 mg Q12H PRN PO 05/25/17 14:45 (Dulcolax Supp) 10 mg DAILY PRN RECTAL 05/25/17 14:45 (Lactulose Liq) 30 ml DAILY PRN PO 05/25/17 14:45 Family History Reviewed, noncontributory Social History Patient admits to smoking 1 pack per day for many years since his teen years, denies any alcohol or illicit drug use. Physical Exam Vital Signs Vital Signs Date Time Temp Pulse Resp B/P (MAP) Pulse Ox O2 Delivery O2 Flow Rate FiO2 05/25/17 16:54 97.0 75 18 111/54 (73) 96 05/25/17 16:34 05/25/17 14:30 66/62 (63) 05/25/17 13:35 101/54 (70) 05/25/17 13:00 92/48 (63) 05/25/17 12:30 100/54 (69) 05/25/17 12:15 91/51 (64) 05/25/17 12:00 78/45 (56) 05/25/17 11:45 74/50 (58) 05/25/17 11:30 83/50 (61) 05/25/17 11:25 97.8 57 16 78/46 (57) 99 Physical Exam GENERAL: Well-developed, thin elderly patient in [facility]. SKIN: Warm and dry. No rash. Multiple abrasions, status post fall at home. HEAD: Normocephalic. Atraumatic. EYES: Pupils equal and round. No scleral icterus. No injection or drainage. ENT: No nasal bleeding or discharge. Mucous membranes pink and moist. NECK: Supple. Trachea midline. CARDIOVASCULAR: Regular rate and rhythm. S1, S2 noted. No murmur appreciated. RESPIRATORY: No accessory muscle use. Clear to auscultation. Breath sounds equal bilaterally. GASTROINTESTINAL: Abdomen soft, non-tender, nondistended. Normoactive bowel sounds x4. MUSCULOSKELETAL: No obvious deformities. Extremities without clubbing, cyanosis , or edema. NEUROLOGICAL: Awake and alert, pleasantly confused, history of Alzheimer's dementia. No obvious cranial nerve deficits. Motor grossly within normal limits. 5/5 muscle strength in bilateral upper and lower extremities. Normal speech. Laboratory Laboratory Tests Test 05/25/17 12:00 05/25/17 12:20 05/25/17 15:00 White Blood Count 7.6 Red Blood Count 3.48 Hemoglobin 11.0 Hematocrit 31.5 Mean Corpuscular Volume 90.6 Mean Corpuscular Hemoglobin 31.6 Mean Corpuscular Hemoglobin Concent 34.9 Red Cell Distribution Width 14.6 Platelet Count 182 Mean Platelet Volume 10.0 Neutrophils (%) (Auto) 59.7 Lymphocytes (%) (Auto) 27.4 Monocytes (%) (Auto) 8.5 Eosinophils (%) (Auto) 3.6 Basophils (%) (Auto) 0.8 Neutrophils # (Auto) 4.5 Lymphocytes # (Auto) 2.1 Monocytes # (Auto) 0.6 Eosinophils # (Auto) 0.3 Basophils # (Auto) 0.1 CBC Comment DIFF FINAL Differential Comment Prothrombin Time 10.0 Prothromb Time International Ratio 1.0 Activated Partial Thromboplast Time 24.2 Blood Urea Nitrogen 41 Creatinine 2.00 Random Glucose 105 Total Protein 7.3 Albumin 3.2 Calcium Level 9.1 Magnesium Level 1.9 Alkaline Phosphatase 116 Aspartate Amino Transf (AST/SGOT) 18 Alanine Aminotransferase (ALT/SGPT) 12 Total Bilirubin 0.3 Sodium Level 139 Potassium Level 4.7 Chloride Level 106 Carbon Dioxide Level 22.6 Anion Gap 10 Estimat Glomerular Filtration Rate 32 Total Creatine Kinase 103 Troponin I LESS THAN 0.02 Ethyl Alcohol Level LESS THAN 3 Lactic Acid Level 4.4 3.2 Date/Time Source Procedure Growth Status 05/25/17 13:50 Blood Peripheral Aerobic Blood Culture Pending Received 05/25/17 13:50 Blood Peripheral Anaerobic Blood Culture Pending Received Result Diagram: 05/25/17 1200 05/25/17 1200 Septic Shock Reassessment Septic shock perfusion: reassessment completed Caprini VTE Risk Assessment Caprini VTE Risk Assessment: Mod/High Risk (score >= 2) Caprini Risk Assessment Model Point Value = 1 Point Value = 2 Point Value = 3 Point Value = 5 Age 41-60 Minor surgery BMI > 25 kg/m2 Swollen legs Varicose veins or History of unexplained or recurrent spontaneous Oral contraceptives or hormone replacement Sepsis (< 1 month) Serious lung disease, including pneumonia (< 1 month) Abnormal pulmonary function Acute myocardial infarction Congestive heart failure (< 1 month) History of inflammatory bowel disease Medical patient at bed rest Age 61-74 Arthroscopic surgery Major open surgery (> 45 min) Laparoscopic surgery (> 45 min) Malignancy Confined to bed (> 72 hours) Immobilizing plaster cast Central venous access Age >= 75 History of VTE Family history of VTE Factor V Leiden Prothrombin [id number] Lupus anticoagulant Anticardiolipin antibodies Elevated serum homocysteine Heparin-induced thrombocytopenia Other congenital or acquired thrombophilia Stroke (< 1 month) Elective arthroplasty Hip, pelvis, or leg fracture Acute spinal cord injury (< 1 month) Prophylaxis Regimen Total Risk Factor Score Risk Level Prophylaxis Regimen 0-1 Low Early ambulation 2 Moderate Order ONE of the following: *Sequential Compression Device (SCD) *Heparin 5000 units SQ BID 3-4 Higher Order ONE of the following medications: *Heparin 5000 units SQ TID *Enoxaparin/Lovenox 40 mg SQ daily (WT < 150 kg, CrCl > 30 mL/min) *Enoxaparin/Lovenox 30 mg SQ daily (WT < 150 kg, CrCl > 10-29 mL/min) *Enoxaparin/Lovenox 30 mg SQ BID (WT < 150 kg, CrCl > 30 mL/min) AND/OR *Sequential Compression Device (SCD) 5 or more Highest Order ONE of the following medications: *Heparin 5000 units SQ TID (Preferred with Epidurals) *Enoxaparin/Lovenox 40 mg SQ daily (WT < 150 kg, CrCl > 30 mL/min) *Enoxaparin/Lovenox 30 mg SQ daily (WT < 150 kg, CrCl > 10-29 mL/min) *Enoxaparin/Lovenox 30 mg SQ BID (WT < 150 kg, CrCl > 30 mL/min) AND *Sequential Compression Device (SCD) Assessment and Plan Problem List: (1) Dehydration ICD Code: E86.0 - Dehydration Status: Acute Assessment and Plan This is a 77-year-old male patient with a known medical history of Alzheimer's dementia, CAD with cardiac stent placement, hypertension, diabetes who presented to the ED after presenting to his PCPs office with low blood pressure. Dehydration with hypotension unknown cause Reports of near syncopal episode suspect secondary to above Acute kidney injury suspect secondary to above Blood pressure on presentation 78/46. Has improved status post 3 L NS bolus in ED. Continue maintenance IV fluid. Monitor BP trends. Creatinine on presentation 2.0, patient's labs reviewed from prior hospitalization creatinine 1.28. Continue IV fluid. Monitor. Head CT performed in ED, showing old ischemia, no acute change Chest x-ray reviewed showing no evidence of acute cardiopulmonary process. Continue cardiac telemetry, monitor for any arrhythmias. EKG reviewed, showing sinus bradycardia with controlled heart rate, no ST changes, no arrhythmias. PT evaluation ordered, appreciate input recommendations. Echocardiogram ordered and pending, follow. Supplemental O2 as needed, patient comfortable on room air. Supportive care. Encourage p.o. intake. Elevated lactic acid unknown cause suspect secondary to dehydration? versus renal insufficiency? Lactic acid 4.4 on presentation, decreased to 3.2. Continue to follow per protocol. Blood cultures ordered and pending. Patient is afebrile. No leukocytosis. Continue to monitor CBC. Urinalysis ordered and pending. Was given 1 dose of ceftriaxone IV in ED. We will continue hydration. Will hold off on IV antibiotics until UA resulted. Follow. Hypertension, chronic: Now hypotensive. Will hold home medications. Monitor BP trends. Continue IV fluid. Type 2 diabetes, chronic: Accu-Chek before meals at bedtime, sliding scale insulin, cover as needed. Diabetic diet. Hemoglobin A1c ordered, pending. Follow. History of CAD with GA and cardiac stent placement: Continue home aspirin. Hyperlipidemia, chronic: Continue home statin. Other chronic problems include dementia, depression, BPH and are all stable at this time, will continue home medications. DVT prophylaxis: SCDs. Heparin. Physician Certification 2 Midnight Certification Type: Admission for Inpatient Services Order for Inpatient Services The services are ordered in accordance with Medicare regulations or non- Medicare payer requirements, as applicable. In the case of services not specified as inpatient-only, they are appropriately provided as inpatient services in accordance with the 2-midnight benchmark. Estimated LOS (days): 3 3 days is the estimated time the patient will need to remain in the hospital, assuming treatment plan goals are met and no additional complications. Post-Hospital Plan: Not yet determined Rachele Davis May 25, 2017 17:40
[2017-05-25 20:16] LABS: BILIRUBIN, URINE NEG (NEG); BLOOD, URINE NEG (NEG); GLUCOSE,URINE NEG (NEG); KETONE, URINE TRACE mg/dL (NEG); NITRITE,URINE NEG (NEG); PH, URINE 5.5 (5.0-8.5); URINE LEUKOCYTE ESTERASE NEG (NEG)
[2017-05-25 20:29] LABS: URINE COLOR YELLOW (YELLW/STRAW)
[2017-05-25 20:31] LABS: MUCUS URINE FEW /lpf (OCC); RBC, URINE 0-3 /hpf (0-3); SQUAMOUS EPITHELIAL CELL URINE 0-5 /hpf (0-5)
[2017-05-25] MEDS: INSULIN ASPART SUPPLEMENTAL SCALE SQ SCH (21:00)
[2017-05-25 21:12] LABS: TROPONIN I LESS THAN 0.02 NG/ML (0.02-0.05)
[2017-05-25] MEDS: SODIUM CHLOR 0.9% 1000 ML INJ 1,000 ML IV SCH (22:24)
[2017-05-25] MEDS: DORZOLAMIDE 2% OPTH SOLN 200 DROP/10 ML BTLO LEFT EYE SCH (22:25)
[2017-05-25] MEDS: PANTOPRAZOLE SOD 40 MG DELAYED RELEASE TAB PO SCH (22:26)
[2017-05-25] MEDS: HEPARIN SODIUM - SQ 10,000 UNITS/ML VIAL SQ SCH (22:26)
[2017-05-25] MEDS: MEMANTINE HCL 5 MG TAB PO SCH (22:27)
[2017-05-25] MEDS: ATORVASTATIN 40 MG TAB PO SCH (22:27)
[2017-05-25] MEDS: TAMSULOSIN HCL 0.4 MG CAP PO SCH (22:27)
[2017-05-25] MEDS: QUEtiapine FUMARATE 25 MG TAB PO SCH (22:28)
[2017-05-25] MEDS: SODIUM CHLORIDE 0.9% FLUSH 10 ML FLUSH IV FLUSH SCH (22:28)
[2017-05-25] MEDS: DOCUSATE SODIUM 50 MG/SENNA 8.6 MG TAB PO SCH (22:29)
[2017-05-25] MEDS: DONEPEZIL HCL 5 MG TAB PO SCH (22:29)
[2017-05-26] VITALS (8 sets, daily range): BP systolic 130–165; BP diastolic 65–104; PULSE 65–87; RESP 16–18; TEMP 96.4–98.4; O2SAT 92–97
[2017-05-26] MEDS: HEPARIN SODIUM - SQ 10,000 UNITS/ML VIAL SQ SCH ×3 (06:14→22:25)
[2017-05-26] MEDS: SODIUM CHLOR 0.9% 1000 ML INJ 1,000 ML IV SCH ×2 (06:18→22:48)
[2017-05-26 07:44] LABS: AUTOMATED NEUTROPHIL # 3.1 TH/MM3 (1.8-7.7); BASOPHIL % 0.8 % (0.0-2.0); EOSINOPHIL # 0.3 TH/MM3 (0-0.4); EOSINOPHIL % 5.4 % (0.0-4.0); HEMATOCRIT 29.5 % (39.0-51.0); HEMOGLOBIN 9.6 GM/DL (13.0-17.0); LYMPH % 30.7 % (9.0-44.0); LYMPHOCYTE # 1.6 TH/MM3 (1.0-4.8); MEAN CELL VOLUME 90.2 FL (80.0-100.0); MEAN CORPUSCULAR HEMOGLOBIN 29.2 PG (27.0-34.0); MEAN CORPUSCULAR HGB CONC 32.3 % (32.0-36.0); MEAN PLATELET VOLUME 9.2 FL (7.0-11.0); MONO % 7.5 % (0.0-8.0); MONOCYTE # 0.4 TH/MM3 (0-0.9); NEUT % 55.6 % (16.0-70.0); PLATELET COUNT 194 TH/MM3 (150-450); RED BLOOD COUNT 3.27 MIL/MM3 (4.50-5.90); RED CELL DISTRIBUTION WIDTH 14.2 % (11.6-17.2); WHITE BLOOD COUNT 5.4 TH/MM3 (4.0-11.0)
[2017-05-26] MEDS: INSULIN ASPART SUPPLEMENTAL SCALE SQ SCH ×4 (08:00→22:30)
[2017-05-26 08:06] LABS: ALBUMIN 2.7 GM/DL (3.4-5.0); ALKALINE PHOSPHATASE 101 U/L (45-117); ALT (GPT) 9 U/L (12-78); AST (GOT) 11 U/L (15-37); BICARBONATE 24.5 MEQ/L (21.0-32.0); BLOOD UREA NITROGEN 38 MG/DL (7-18); CALCIUM 8.1 MG/DL (8.5-10.1); CHLORIDE 112 MEQ/L (98-107); GLOMERULAR FILTRATION RATE 49 ML/MIN (>89); GLUCOSE,RANDOM 72 MG/DL (74-106); MAGNESIUM 1.6 MG/DL (1.5-2.5); PHOSPHORUS 2.9 MG/DL (2.5-4.9); SODIUM (NA) 144 MEQ/L (136-145); TOTAL BILIRUBIN ADULT 0.2 MG/DL (0.2-1.0); TOTAL PROTEIN 6.2 GM/DL (6.4-8.2)
--- NOTE | 2017-05-26 09:33 | HHI.PR ---
Subjective Remarks Patient seen and examined today for follow-up on dehydration, near syncope, falls at home. Patient denies any new complaints today. States that he is feeling well. States that he has not been eating and drinking alcohol despite that he has a 7 day a week caregiver as indicated by physical therapy the patient does have a walker at home, however he has not been using it. Patient' s reason for admission has been corrected at this time. We'll need case management for further evaluation for discharge planning to home with home health care and caregiver. Objective Vitals Vital Signs Date Time Temp Pulse Resp B/P (MAP) Pulse Ox O2 Delivery O2 Flow Rate FiO2 05/26/17 09:00 96.6 87 18 149/104 (119) 96 05/26/17 04:00 96.7 74 16 135/66 (89) 92 05/26/17 00:00 96.4 65 16 165/82 (109) 94 05/25/17 21:15 95 21 05/25/17 20:30 69 05/25/17 20:00 96.6 68 18 141/69 (93) 96 05/25/17 16:54 97.0 75 18 111/54 (73) 96 05/25/17 16:34 05/25/17 14:30 66/62 (63) 05/25/17 13:35 101/54 (70) 05/25/17 13:00 92/48 (63) 05/25/17 12:30 100/54 (69) 05/25/17 12:15 91/51 (64) 05/25/17 12:00 78/45 (56) 05/25/17 11:45 74/50 (58) 05/25/17 11:30 83/50 (61) 05/25/17 11:25 97.8 57 16 78/46 (57) 99 I/O 05/25/17 05/25/17 05/25/17 05/26/17 05/26/17 05/26/17 07:00 15:00 23:00 07:00 15:00 23:00 Intake Total 2240 ml 1132 ml Balance 2240 ml 1132 ml Intake Oral 240 ml 180 ml IV Total 2000 ml 952 ml # Voids 1 3 1 # Bowel Movements 1 0 Result Diagram: 05/26/1772105/26/17721 Objective Remarks GENERAL: Well-developed, well-nourished, in no acute distress. alert and orientated HEENT: Head is normocephalic without any lesions or masses noted. Facial features are symmetric. Eyes: Extraocular muscles are intact. Conjunctivae were clear. NECK: Supple without any masses. Trachea midline no deviation. No JVD, CARDIAC: Regular rhythm, regular rate. S1/S2 are heard. 3/6 ejection murmur noted in aortic region. No Gallops or rubs. LUNGS: Clear to auscultation bilaterally. No wheeze, rhonchi or rales. No use of accessory muscles on inspiration or expiration. ABDOMEN: Soft, nontender. Nondistended. Bowel sounds heard in all 4 quadrants. No organomegaly or masses. Negative rebound, negative guarding EXTREMITIES: No edema, pulses are equal bilaterally. No cyanosis or clubbing NEUROLOGY: Mood and affect appear appropriate. Cranial nerves II through XII grossly intact. Moving all extremities, speech is clear Urinary Catheter: No Vascular Central Line Catheter: No A/P Assessment and Plan This is a 77-year-old male patient with a known medical history of Alzheimer's dementia, CAD with cardiac stent placement, hypertension, diabetes who presented to the ED after presenting to his PCPs office with low blood pressure. Dehydration with hypotension, resolved Secondary to poor by mouth intake and outpatient management Continue IV fluid Acute renal failure superimposed on chronic kidney disease stage III Could be secondary to dehydration and/or hypoperfusion Patient was given IV fluids Renal functions have returned to baseline Avoid nephrotoxins Reports of near syncopal episode suspect secondary to above Head CT performed in ED, showing old ischemia, no acute change Echocardiogram is pending PT/OT evaluations, physical therapy with home health care, occupational therapy no outpatient treatment indicated Hypotension in a patient with hypertension, improved IV fluids were given with improvement of blood pressure Will resume amlodipine, continue to hold GUILLERMINA inhibitor, HCTZ Elevated lactic acid unknown cause suspect secondary to dehydration? versus renal insufficiency? , Resolved Lactic acid 4.4 on presentation, decreased to 3.2. Continue to follow per protocol. Blood cultures are negative for 1 day No signs of infection patient is afebrile. No leukocytosis. Urinalysis is clear Type 2 diabetes, chronic: Accu-Chek before meals at bedtime, sliding scale insulin, cover as needed. Diabetic diet. Hemoglobin A1c ordered, pending. Follow. History of coronary artery disease with stenting. History myocardial infarction , hyperlipidemia Continue home medications Dementia, depression, continue home medications. DVT prophylaxis: Sequential compression devices Subcutaneous heparin Discharge Planning Discharge planning next 24-48 hours, depending on appropriate and safe discharge to home with home health care. Albert Hamilton May 26, 2017 09:33
--- NOTE | 2017-05-26 10:11 | HHI.FF ---
Face to Face Verification Diagnosis: (1) Dehydration (2) Generalized weakness (3) Unsteady gait Physical Therapy Order: Evaluate and Treat, Improve ambulation, Strength and gait training Home Health Nursing Order: Medical education Signs/symptoms of disease process Nursing assessment with vital signs I have seen patient Edenilson Jaramillo on 05/26/17. My clinical findings support the need for the requested home health care services because: Deconditioned w/ increased weakness Limited ability to care for self I certify that my clinical findings support that this patient is homebound because: Unsteady gait/balance Unsafe to leave home unassisted Albert Hamilton May 26, 2017 10:11
[2017-05-26 10:29] LABS: FREE T4 1.11 NG/DL (0.76-1.46)
[2017-05-26] MEDS: amLODIPine BESYLATE 5 MG TAB PO SCH (11:35)
[2017-05-26] MEDS: PARoxetine HCL 20 MG TAB PO SCH (11:36)
[2017-05-26] MEDS: MEMANTINE HCL 5 MG TAB PO SCH ×2 (11:36→22:26)
[2017-05-26] MEDS: ASPIRIN EC 81 MG TABEC PO SCH (11:36)
[2017-05-26] MEDS: PANTOPRAZOLE SOD 40 MG DELAYED RELEASE TAB PO SCH ×2 (11:36→22:26)
[2017-05-26] MEDS: DORZOLAMIDE 2% OPTH SOLN 200 DROP/10 ML BTLO LEFT EYE SCH ×3 (11:37→18:29)
[2017-05-26] MEDS: SODIUM CHLORIDE 0.9% FLUSH 10 ML FLUSH IV FLUSH SCH ×2 (11:37→22:26)
[2017-05-26] MEDS: SENNOSIDES 8.6 MG TAB PO PRN ×2 (11:39→11:41)
[2017-05-26] MEDS: DOCUSATE SODIUM 50 MG/SENNA 8.6 MG TAB PO SCH ×2 (11:44→22:26)
--- NOTE | 2017-05-26 14:22 | ECHRPT ---
Indication: near syncope CONCLUSIONS Normal left ventricular size. The left ventricular systolic function is hyperdynamic with an estimated ejection fraction in the ra nge of 65- 70%. The left atrial size is upper limits of normal. [place] mitral valve regurgitation. Aortic valve sclerosis is present. There is mild tricuspid valve regurgitation. The estimated pulmonary arterial pressure is 33 mmHg. BP: / HR: Rhythm: MEASUREMENTS (Male / Female) Normal Values Technical Quality:Fair 2D ECHO LV Diastolic Diameter PLAX 4.3 cm 4.2 - 5.9 / 3.9 - 5.3 cm LV Systolic Diameter PLAX 2.9 cm IVS Diastolic Thickness 1.7 cm 0.6 - 1.0 / 0.6 - 0.9 cm LVPW Diastolic Thickness 1.3 cm 0.6 - 1.0 / 0.6 - 0.9 cm LV Relative Wall Thickness 0.7 RV Internal Dim ED PLAX 2.5 cm LVOT Diameter 1.6 cm M-MODE Aortic Root Diameter MM 4.1 cm LA Systolic Diameter MM 4.4 cm LA Ao Ratio MM 1.1 AV Cusp Separation MM 1.4 cm DOPPLER AV Peak Velocity 143.0 cm/s AV Peak Gradient 8.2 mmHg AV Mean Gradient 4.0 mmHg AV Velocity Time Integral 28.8 cm LVOT Peak Velocity 120.0 cm/s LVOT Peak Gradient 5.8 mmHg LVOT Velocity Time Integral 26.8 cm AV Area Cont Eq vti 1.9 cm AV Area Cont Eq pk 1.7 cm TR Peak Velocity 238.0 cm/s TR Peak Gradient 22.7 mmHg Right Atrial Pressure 10.0 mmHg Pulmonary Artery Systolic Pressu 32.7 mmHg Right Ventricular Systolic Press 32.7 mmHg FINDINGS LEFT VENTRICLE Normal left ventricular size. The left ventricular systolic function is hyperdynamic with an estimated ejection fraction in the ra nge of 65- 70%. RIGHT VENTRICLE Normal right ventricular size and systolic function. LEFT ATRIUM The left atrial size is upper limits of normal. RIGHT ATRIUM The right atrial size is normal. ATRIAL SEPTUM Normal atrial septal thickness without atrial level shunting by limited color doppler interrogation. AORTA The aortic root and proximal ascending aorta are normal in size on limited imaging. MITRAL VALVE Structurally normal mitral valve. Wrtym-[id number] mitral valve regurgitation. AORTIC VALVE Trileaflet aortic valve. Aortic valve sclerosis is present. Aortic valve area is 1.9 cm. Aortic valve mean gradient is 4 mmHg. TRICUSPID VALVE Structurally normal tricuspid valve. There is mild tricuspid valve regurgitation. The estimated pulmonary arterial pressure is 32.7 mmHg. PULMONARY VALVE No pulmonary valve regurgitation or stenosis. VESSELS The inferior vena cava is normal in size. PERICARDIUM No pericardial effusion. Patricia Romo MD, FACC (Electronically Signed) Final Date:26 May 2017 14:21
[2017-05-26 15:47] LABS: HEMOGLOBIN A1C 6.6 % (4.3-6.0)
[2017-05-26] MEDS: ATORVASTATIN 40 MG TAB PO SCH (22:25)
[2017-05-26] MEDS: QUEtiapine FUMARATE 25 MG TAB PO SCH (22:26)
[2017-05-26] MEDS: TAMSULOSIN HCL 0.4 MG CAP PO SCH (22:26)
[2017-05-26] MEDS: DONEPEZIL HCL 5 MG TAB PO SCH (22:28)
--- NOTE | 2017-05-26 22:52 | EKG ---
Date Performed: 05/25/2017 Time Performed: 12:23:50 PTAGE: 77 years EKG: SINUS BRADYCARDIA BORDERLINE ECG PREVIOUS TRACING : 04/29/2017 08.56 Since the prior tracing, there has been no significant garcia ge DOCTOR: Patricia Romo Interpretating Date/Time 05/26/2017 22:49:58
[2017-05-27] VITALS: BP 124/61; PULSE 66; RESP 16; TEMP 97.4; O2SAT 97
[2017-05-27 06:38] LABS: AUTOMATED NEUTROPHIL # 3.9 TH/MM3 (1.8-7.7); BASOPHIL % 0.5 % (0.0-2.0); EOSINOPHIL # 0.3 TH/MM3 (0-0.4); EOSINOPHIL % 5.5 % (0.0-4.0); HEMATOCRIT 29.3 % (39.0-51.0); HEMOGLOBIN 9.4 GM/DL (13.0-17.0); LYMPH % 25.6 % (9.0-44.0); LYMPHOCYTE # 1.6 TH/MM3 (1.0-4.8); MEAN CELL VOLUME 91.5 FL (80.0-100.0); MEAN CORPUSCULAR HEMOGLOBIN 29.5 PG (27.0-34.0); MEAN CORPUSCULAR HGB CONC 32.2 % (32.0-36.0); MEAN PLATELET VOLUME 10.4 FL (7.0-11.0); MONO % 7.9 % (0.0-8.0); MONOCYTE # 0.5 TH/MM3 (0-0.9); NEUT % 60.5 % (16.0-70.0); PLATELET COUNT 191 TH/MM3 (150-450); RED CELL DISTRIBUTION WIDTH 14.2 % (11.6-17.2); WHITE BLOOD COUNT 6.3 TH/MM3 (4.0-11.0)
[2017-05-27] MEDS: HEPARIN SODIUM - SQ 10,000 UNITS/ML VIAL SQ SCH (06:41)
[2017-05-27] MEDS: SODIUM CHLOR 0.9% 1000 ML INJ 1,000 ML IV SCH (06:43)
[2017-05-27 06:51] LABS: BICARBONATE 23.3 MEQ/L (21.0-32.0); MAGNESIUM 1.3 MG/DL (1.5-2.5)
[2017-05-27 07:02] LABS: CREATININE 1.2 MG/DL (0.60-1.30)
[2017-05-27 07:50] VITALS: BP 159/70; PULSE 73; RESP 20; TEMP 97; O2SAT 97
[2017-05-27] MEDS: SODIUM CHLORIDE 0.9% FLUSH 10 ML FLUSH IV FLUSH SCH (07:52)
[2017-05-27] MEDS: INSULIN ASPART SUPPLEMENTAL SCALE SQ SCH (07:52)
[2017-05-27] MEDS: PARoxetine HCL 20 MG TAB PO SCH (08:01)
[2017-05-27] MEDS: DORZOLAMIDE 2% OPTH SOLN 200 DROP/10 ML BTLO LEFT EYE SCH (08:01)
[2017-05-27] MEDS: ASPIRIN EC 81 MG TABEC PO SCH (08:01)
[2017-05-27] MEDS: DOCUSATE SODIUM 50 MG/SENNA 8.6 MG TAB PO SCH (08:01)
[2017-05-27] MEDS: MEMANTINE HCL 5 MG TAB PO SCH (08:01)
[2017-05-27] MEDS: amLODIPine BESYLATE 5 MG TAB PO SCH (08:01)
[2017-05-27] MEDS: PANTOPRAZOLE SOD 40 MG DELAYED RELEASE TAB PO SCH (08:01)
--- NOTE | 2017-05-27 08:27 | HHI.DS ---
Discharge Summary Admission Date May 25, 2017 at 14:45 Discharge Date: May 27, 2017 Admitting Diagnosis Dehydration (1) Dehydration ICD Code: E86.0 - Dehydration Status: Acute (2) Generalized weakness ICD Code: R53.1 - Weakness Status: Acute (3) Unsteady gait ICD Code: R26.81 - Unsteadiness on feet Status: Acute Procedures ECHOCARDIOGRAM CONCLUSIONS Normal left ventricular size. The left ventricular systolic function is hyperdynamic with an estimated ejection fraction in the range of 65- 70%. The left atrial size is upper limits of normal. Mmrcc-xj-ybqn mitral valve regurgitation. Aortic valve sclerosis is present. There is mild tricuspid valve regurgitation. The estimated pulmonary arterial pressure is 33 mmHg. Brief History - From Admission This is a 77-year-old male patient with a known medical history of Alzheimer's dementia, CAD with cardiac stent placement, hypertension, diabetes who presented to the ED after presenting to his PCPs office with low blood pressure. Patient is a relatively poor historian, is confused as to time, place and situation. He is unaware of what brought him to the hospital or even being in the hospital. No family or friend at bedside. After review of records patient was admitted to the hospital late March and underwent an abdominal incisional hernia repair. Supposedly was sent to the rehab and released from rehab last Thursday. Patient has a nurse manager at home, who is not at bedside at this time. There are reports that patient fell yesterday, patient states he remembers this but does not remember the occurrences that led up to the fall. Does state he had his head and his nose. Supposedly patient took a couple medications this morning, nurse manager is unaware of which medications these were. Patient denies any recent illness including fever, chills, cough, shortness of breath, abdominal pain, nausea, vomiting or diarrhea. Upon presentation head CT was performed showing old ischemic changes , no acute findings. GFR 32, creatinine 2.0 on presentation. CBC/BMP: 05/27/17 0450 05/27/17 0450 Significant Findings Laboratory Tests Test 05/25/17 12:00 05/25/17 12:20 05/25/17 15:00 05/25/17 19:50 Red Blood Count 3.48 MIL/MM3 (4.50-5.90) Hemoglobin 11.0 GM/DL (13.0-17.0) Hematocrit 31.5 % (39.0-51.0) Monocytes (%) (Auto) 8.5 % (0.0-8.0) Activated Partial Thromboplast Time 24.2 SEC (24.3-30.1) Blood Urea Nitrogen 41 MG/DL (7-18) Creatinine 2.00 MG/DL (0.60-1.30) Albumin 3.2 GM/DL (3.4-5.0) Estimat Glomerular Filtration Rate 32 ML/MIN (>89) Troponin I LESS THAN 0.02 NG/ML Lactic Acid Level 4.4 mmol/L (0.4-2.0) 3.2 mmol/L (0.4-2.0) Urine Ketones TRACE mg/dL (NEG) Urine Mucus FEW /lpf (OCC) Test 05/25/17 20:30 05/26/17 07:22 05/27/17 04:50 Troponin I LESS THAN 0.02 NG/ML Red Blood Count 3.27 MIL/MM3 (4.50-5.90) 3.20 MIL/MM3 (4.50-5.90) Hemoglobin 9.6 GM/DL (13.0-17.0) 9.4 GM/DL (13.0-17.0) Hematocrit 29.5 % (39.0-51.0) 29.3 % (39.0-51.0) Eosinophils (%) (Auto) 5.4 % (0.0-4.0) 5.5 % (0.0-4.0) Blood Urea Nitrogen 38 MG/DL (7-18) 25 MG/DL (7-18) Creatinine 1.40 MG/DL (0.60-1.30) Random Glucose 72 MG/DL (74-106) Total Protein 6.2 GM/DL (6.4-8.2) Albumin 2.7 GM/DL (3.4-5.0) Calcium Level 8.1 MG/DL (8.5-10.1) 8.0 MG/DL (8.5-10.1) Aspartate Amino Transf (AST/SGOT) 11 U/L (15-37) Alanine Aminotransferase (ALT/SGPT) 9 U/L (12-78) Chloride Level 112 MEQ/L (98-107) 113 MEQ/L (98-107) Estimat Glomerular Filtration Rate 49 ML/MIN (>89) 58 ML/MIN (>89) Hemoglobin A1c 6.6 % (4.3-6.0) Magnesium Level 1.3 MG/DL (1.5-2.5) Imaging Last Impressions Head CT 05/25/17 1242 Signed Impressions: Service Date/Time: Thursday, May 25, 2017 13:42 - CONCLUSION: Old ischemic changes on the left sylvian region and right basalganglia otherwise negative Ankit Staley MD FACR PE at Discharge GENERAL: Well-developed, well-nourished, in no acute distress. alert and orientated HEENT: Head is normocephalic without any lesions or masses noted. Facial features are symmetric. Eyes: Extraocular muscles are intact. Conjunctivae were clear. NECK: Supple without any masses. Trachea midline no deviation. No JVD, CARDIAC: Regular rhythm, regular rate. S1/S2 are heard. 3/6 ejection murmur noted in aortic region. No Gallops or rubs. LUNGS: Clear to auscultation bilaterally. No wheeze, rhonchi or rales. No use of accessory muscles on inspiration or expiration. ABDOMEN: Soft, nontender. Nondistended. Bowel sounds heard in all 4 quadrants. No organomegaly or masses. Negative rebound, negative guarding EXTREMITIES: No edema, pulses are equal bilaterally. No cyanosis or clubbing NEUROLOGY: Mood and affect appear appropriate. Cranial nerves II through XII grossly intact. Moving all extremities, speech is clear Hospital Course 77 year-old male with known history of dementia, coronary artery disease, hypertension, diabetes who originally presented to the hospital at the request of his primary medical doctor because of low blood pressure. Patient had workup done in the emergency department and found to have hypotension, dehydration, acute kidney injury, elevated lactic acid level. Indicated the patient does live at home, does have a 7 day a week caregiver. However upon further investigation is indicated that the patient has been given him his own medications. He is not walking at home without walker like he is supposed to. Patient was admitted to the hospital with IV fluid hydration. Patient significantly improved. Renal function returned to baseline. Physical therapy evaluated the patient and recommended patient can go home with home health care or rehabilitation facility. Patient does not want to go to rehabilitation facility. Case management was consulted for discharge planning. They spoke with the caregiver directly to insinuate upon her the need to manage the patient. Patient clinically stable this time. Home health care has been arranged. Will plan discharge accordingly. Pt Condition on Discharge: Stable Discharge Disposition: Disch w/ Home Health Serv Discharge Time: > 30 minutes Discharge Instructions DIET: Follow Instructions for: Heart Healthy Diet Activities you can perform: Regular-No Restrictions Follow up Referrals: PCP Follow-up - 1 Week Continued Medications: Amlodipine (Norvasc) 5 Mg Tab 5 MG PO DAILY for Blood Pressure Management, #30 TAB [address] (Aspirin EC) 81 Mg Tabdr 81 MG PO DAILY, TAB 0 Refills Atorvastatin (Lipitor) 80 Mg Tab 80 MG PO HS for Cholesterol Management, #30 TAB 0 Refills Donepezil (Donepezil) 5 Mg Tab 5 MG PO HS for Dementia, #30 TAB 0 Refills Dorzolamide Opth Drops (Trusopt Opth Drops) 2% Soln 1 DROP LEFT EYE TID for Glaucoma, #1 BOTTLE 0 Refills Enalapril (Enalapril) 20 Mg Tab 40 MG PO BID, #30 TAB 0 Refills Glipizide (Glipizide) 10 Mg Tab 10 MG PO BIDAC for Blood Sugar Management, #60 TAB 0 Refills Take 30 minutes before a meal Memantine (Namenda) 5 Mg Tab 5 MG PO BID for Alzheimer Disease, #60 TAB 0 Refills Metformin (Metformin) 1,000 Mg Tab 1000 MG PO TIDAC for Blood Sugar Management, #60 TAB 0 Refills Pantoprazole (Pantoprazole) 40 Mg Tab 40 MG PO BID for Reflux, #30 TAB 0 Refills Paroxetine (Paroxetine) 40 Mg Tab 40 MG PO DAILY, #30 TAB 0 Refills Propranolol ER 24 HR (Inderal LA 24 HR) 60 Mg Cap 20 MG PO TID, #30 CAP 0 Refills Quetiapine (Seroquel) 50 Mg Tab 50 MG PO HS, #30 TAB 0 Refills Tamsulosin (Flomax) 0.4 Mg Cap 0.4 MG PO HS for Manage Prostate Problems, #30 CAP 0 Refills Discontinued Medications: Hydrochlorothiazide (Hydrochlorothiazide) 25 Mg Tab 25 MG PO DAILY, #30 TAB 0 Refills Hydrocodone/Acetaminophen (Hydrocodone-Acetamin 5-325 mg) 5 Mg-325 Mg Tablet 1 TAB PO Q4H PRN for pain, #25 TAB Albert Hamilton May 27, 2017 08:27
[2017-05-27] MEDS ORDERED: MAGNESIUM OXIDE 400 MG TAB PO ONE (08:30)
[2017-05-27 11:00] VITALS: BP 162/75; PULSE 77; RESP 20; TEMP 97.7; O2SAT 92
== END 2017-05-27 12:08 | disposition home health service (06) | DRG 315 ==
LOC: PHED 11:21 → PHEDA 14:45 → PH3A 16:23
PROVIDERS: ADMIT Hospitalist; ATTEND Hospitalist
DX: I95.9 Hypotension, unspecified (principal); N17.9 Acute kidney failure, unspecified; G30.9 Alzheimer's disease, unspecified; I08.3 Combined rheumatic disorders of mitral, aortic and tricuspid valves; E86.0 Dehydration; R00.1 Bradycardia, unspecified; F02.80 Dementia in other diseases classified elsewhere, unspecified severity, without behavioral disturbance, psychotic disturbance, mood disturbance, and anxiety; E11.9 Type 2 diabetes mellitus without complications; E78.5 Hyperlipidemia, unspecified; F17.210 Nicotine dependence, cigarettes, uncomplicated; F32.9 Major depressive disorder, single episode, unspecified; H91.93 Unspecified hearing loss, bilateral; I10 Essential (primary) hypertension; I25.10 Atherosclerotic heart disease of native coronary artery without angina pectoris; K21.9 Gastro-esophageal reflux disease without esophagitis; N40.0 Benign prostatic hyperplasia without lower urinary tract symptoms; R26.81 Unsteadiness on feet; F41.8 Other specified anxiety disorders; Z91.81 History of falling; I25.2 Old myocardial infarction; Z79.82 Long term (current) use of aspirin; Z86.73 Personal history of transient ischemic attack (TIA), and cerebral infarction without residual deficits; Z95.5 Presence of coronary angioplasty implant and graft; Z79.84 Long term (current) use of oral hypoglycemic drugs
CPT/HCPCS: 70450; 71045; 80048; 80053; 80307; 81001; 82550; 82948; 83036; 83605; 83735; 84100; 84439; 84443; 84484; 85025; 85610; 85730; 87040; 93005; 93306; 96360; 96361; J0696; J1644; J1815; J7030

== ENCOUNTER 2017-09-01 21:51 | Observation (INO) | payer MEDICARE, OTHER ==
[~2017-09-01] VITALS: Ht 170.2 cm; Wt 66.3 kg
[2017-09-01 21:51] VITALS: BP 181/70; PULSE 69; RESP 18; TEMP 100.2; O2SAT 95
[~2017-09-01 21:51] MED LIST changes: -HYDR-3516 PO; -HYDR25TA5 PO
--- NOTE | 2017-09-01 22:09 | PD ---
HPI Chief Complaint: Diabetic Time Seen by Provider: 22:02 Travel History International Travel<30 days: No Contact w/Intl Traveler<30days: No Traveled to known affect area: No History of Present Illness HPI 77-year-old male presents the ER for evaluation of altered mental status and generalized weakness. Patient has history of Alzheimer dementia, non-insulin- dependent type 2 diabetes, hypertension. Patient was brought by paramedics and had low blood sugar at seen and was given 2 AMP of D50 and blood sugar went up to the 200s, patient has baseline dementia and is unable to give any history about his condition and paramedics say that his at home states that he has not been acting himself for the last 3 days, refusing to eat, combative, uncooperative and sometimes aggressive. 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, MEMORY LOSS ) Psychiatric: Yes (HAS PERIODS WHERE HE FEEL ANXIOUS; DEPRESSION ) Reproductive: No Respiratory: No Thyroid Disease: No Ulcer: Yes Past Surgical History Abdominal Aneurysm Repair: Yes Abdominal Surgery: Yes (AAA REPAIR, CHRIS INGUINAL HERNIA REPAIR) AICD: No Appendectomy: Yes Body Medical Devices: CARDIAC STENTS X 4 Cardiac Surgery: Yes (cardiac stents x 4) Coronary Stent: Yes Ear Surgery: No Endocrine Surgery: No Eye Surgery: No Genitourinary Surgery: Yes (bladder lift) Gynecologic Surgery: No Joint Replacement: No Oral Surgery: No Pacemaker: No Thoracic Surgery: No Tonsillectomy: Yes Other Surgery: Yes Social History Alcohol Use: No Tobacco Use: Yes (1PPD) Substance Use: No Allergies-Medications (Allergen,Severity, Reaction): Coded Allergies: No Known Allergies (Verified Allergy, Unknown, 09/01/17) Reported Meds & Prescriptions Reported Meds & Active Scripts Active Reported Flomax (Tamsulosin HCl) 0.4 Mg Cap 0.4 Mg PO HS Enalapril (Enalapril Maleate) 20 Mg Tab 40 Mg PO BID Inderal LA 24 HR (Propranolol HCl) 60 Mg Cap 20 Mg PO TID Norvasc (Amlodipine Besylate) 5 Mg Tab 5 Mg PO DAILY Seroquel (Quetiapine Fumarate) 50 Mg Tab 50 Mg PO HS Lipitor (Atorvastatin Calcium) 80 Mg Tab 80 Mg PO HS Paroxetine (Paroxetine HCl) 40 Mg Tab 40 Mg PO DAILY Pantoprazole (Pantoprazole Sodium) 40 Mg Tab 40 Mg PO BID Metformin (Metformin HCl) 1,000 Mg Tab 1,000 Mg PO TIDAC Namenda (Memantine) 5 Mg Tab 5 Mg PO BID Glipizide 10 Mg Tab 10 Mg PO BIDAC Take 30 minutes before a meal Trusopt Opth Drops (Dorzolamide HCl) 2% Soln 1 Drop LEFT EYE TID Donepezil 5 Mg Tab 5 Mg PO HS Aspirin EC (Aspirin) 81 Mg Tabdr 81 Mg PO DAILY Review of Systems Except as stated in HPI: all other systems reviewed are Neg Physical Exam Narrative GENERAL: Awake not oriented to time or place SKIN: Focused skin assessment warm/dry. HEAD: Atraumatic. Normocephalic. EYES: Pupils equal and round. No scleral icterus. No injection or drainage. ENT: No nasal bleeding or discharge. Mucous membranes pink and moist. NECK: Trachea midline. No JVD. CARDIOVASCULAR: Regular rate and rhythm. No murmur appreciated. RESPIRATORY: No accessory muscle use. Clear to auscultation. Breath sounds equal bilaterally. GASTROINTESTINAL: Abdomen soft, non-tender, nondistended. Hepatic and splenic margins not palpable. MUSCULOSKELETAL: No obvious deformities. No clubbing. No cyanosis. No edema. NEUROLOGICAL: Awake and alert. No obvious cranial nerve deficits. Motor grossly within normal limits. Normal speech. PSYCHIATRIC: Appropriate mood and affect; insight and judgment normal. Data Data Last Documented VS Vital Signs Date Time Temp Pulse Resp B/P (MAP) Pulse Ox O2 Delivery O2 Flow Rate FiO2 09/02/17 01:05 70 18 142/67 (92) 97 Room Air 09/01/17 21:51 100.2 Orders Orders Thyroid Stimulating Hormone (09/01/17 22:03) Complete Blood Count With Diff (09/01/17 22:03) Comprehensive Metabolic Panel (09/01/17 22:03) Prothrombin Time / Inr (Pt) (09/01/17 22:03) Act Partial Throm Time (Ptt) (09/01/17 22:03) Alcohol (Ethanol) (09/01/17 22:03) Electrocardiogram (09/01/17 ) Troponin I (09/01/17 22:03) Urinalysis - C+S If Indicated (09/01/17 22:03) Chest, Single Ap (09/01/17 ) Dextrose 50% In Emperatriz (Syr) Inj (D50w (Syr (09/02/17 00:15) Dextrose 50% In Emperatriz (Vial) Inj (D50w (Vi (09/02/17 00:15) Dext 5%-Nacl 0.45% 1000 Ml Inj (D5w-1/2 (09/02/17 00:30) Ct Thorax/ Chest Wo Iv Contras (09/02/17 ) Cath For Specimen (09/02/17 01:08) Admit Order (Ed Use Only) (09/02/17 01:25) Labs Laboratory Tests Test 09/01/17 22:00 09/01/17 23:22 White Blood Count 6.4 TH/MM3 Red Blood Count 3.44 MIL/MM3 Hemoglobin 10.6 GM/DL Hematocrit 31.3 % Mean Corpuscular Volume 91.1 FL Mean Corpuscular Hemoglobin 30.9 PG Mean Corpuscular Hemoglobin Concent 33.9 % Red Cell Distribution Width 13.2 % Platelet Count 213 TH/MM3 Mean Platelet Volume 9.5 FL Neutrophils (%) (Auto) 79.3 % Lymphocytes (%) (Auto) 13.3 % Monocytes (%) (Auto) 5.7 % Eosinophils (%) (Auto) 1.0 % Basophils (%) (Auto) 0.7 % Neutrophils # (Auto) 5.0 TH/MM3 Lymphocytes # (Auto) 0.9 TH/MM3 Monocytes # (Auto) 0.4 TH/MM3 Eosinophils # (Auto) 0.1 TH/MM3 Basophils # (Auto) 0.0 TH/MM3 CBC Comment DIFF FINAL Differential Comment Prothrombin Time 10.3 SEC Prothromb Time International Ratio 1.0 RATIO Activated Partial Thromboplast Time 24.8 SEC Blood Urea Nitrogen 18 MG/DL Creatinine 1.10 MG/DL Random Glucose 97 MG/DL Total Protein 6.5 GM/DL Albumin 3.2 GM/DL Calcium Level 8.4 MG/DL Alkaline Phosphatase 87 U/L Aspartate Amino Transf (AST/SGOT) 10 U/L Alanine Aminotransferase (ALT/SGPT) 9 U/L Total Bilirubin 0.3 MG/DL Sodium Level 139 MEQ/L Potassium Level 3.7 MEQ/L Chloride Level 107 MEQ/L Carbon Dioxide Level 25.8 MEQ/L Anion Gap 6 MEQ/L Estimat Glomerular Filtration Rate 65 ML/MIN Troponin I LESS THAN 0.02 NG/ML Thyroid Stimulating Hormone 3rd Gen 0.461 uIU/ML Ethyl Alcohol Level LESS THAN 3 MG/DL Urine Color YELLOW Urine Turbidity SL CLOUDY Urine pH 8.5 Urine Specific [place] 1.015 Urine Protein TRACE mg/dL Urine Glucose (UA) NEG mg/dL Urine Ketones TRACE mg/dL Urine Occult Blood NEG Urine Nitrite NEG Urine Bilirubin NEG Urine Urobilinogen 0.2 MG/DL Urine Leukocyte Esterase NEG Urine RBC 0-3 /hpf Urine WBC 6-8 /hpf Urine Squamous Epithelial Cells 0-5 /hpf Urine Bacteria NONE /hpf Microscopic Urinalysis Comment CATH-CULT NOT IND MDM Medical Decision Making Medical Screen Exam Complete: Yes Emergency Medical Condition: Yes Differential Diagnosis UTI, pneumonia, dementia exacerbation, intractable hypoglycemia Narrative Course 77-year-old male presents the ER for altered mental status and aggressive behavior towards caregivers, patient had multiple episodes of hypoglycemia that were managed with amps of D50. Patient is low-grade fever without evident source of infection. White blood count is normal but his left shift, CAT scan shows no evidence of pneumonia. I believe the patient will benefit from admission to further evaluate intractable hypoglycemia since patient is diabetic and does not take any insulin in his baseline the blood sugar is usually in the higher side meanwhile he has fever that cannot be explained by the initial workup. For now there is no meningeal signs that warrants for emergent LP to rule out meningitis. Patient will be admitted in a stable condition for further workup. Diagnosis Primary Impression: Generalized weakness Additional Impression: Altered mental status Qualified Codes: R41.82 - Altered mental status, unspecified Admitting Information Admitting Physician Requests: Admit Condition: Stable Rasta Benjamin MD Sep 01, 2017 22:09
[2017-09-01 22:33] LABS: CHLORIDE 107 MEQ/L (98-107); SODIUM (NA) 139 MEQ/L (136-145)
[2017-09-01 22:35] LABS: CALCIUM 8.4 MG/DL (8.5-10.1)
[2017-09-01 22:36] LABS: ALBUMIN 3.2 GM/DL (3.4-5.0); BICARBONATE 25.8 MEQ/L (21.0-32.0); BLOOD UREA NITROGEN 18 MG/DL (7-18); GLUCOSE,RANDOM 97 MG/DL (74-106)
[2017-09-01 22:37] LABS: BASOPHIL % 0.7 % (0.0-2.0); EOSINOPHIL # 0.1 TH/MM3 (0-0.4); HEMATOCRIT 31.3 % (39.0-51.0); HEMOGLOBIN 10.6 GM/DL (13.0-17.0); LYMPH % 13.3 % (9.0-44.0); LYMPHOCYTE # 0.9 TH/MM3 (1.0-4.8); MEAN CELL VOLUME 91.1 FL (80.0-100.0); MEAN CORPUSCULAR HEMOGLOBIN 30.9 PG (27.0-34.0); MEAN CORPUSCULAR HGB CONC 33.9 % (32.0-36.0); MEAN PLATELET VOLUME 9.5 FL (7.0-11.0); MONO % 5.7 % (0.0-8.0); MONOCYTE # 0.4 TH/MM3 (0-0.9); NEUT % 79.3 % (16.0-70.0); PLATELET COUNT 213 TH/MM3 (150-450); RED BLOOD COUNT 3.44 MIL/MM3 (4.50-5.90); RED CELL DISTRIBUTION WIDTH 13.2 % (11.6-17.2); WHITE BLOOD COUNT 6.4 TH/MM3 (4.0-11.0)
[2017-09-01 22:38] LABS: PROTHROMBIN TIME - PATIENT 10.3 SEC (9.8-11.6)
[2017-09-01 22:39] LABS: ALT (GPT) 9 U/L (12-78); AST (GOT) 10 U/L (15-37); GLOMERULAR FILTRATION RATE 65 ML/MIN (>89)
[2017-09-01 22:41] LABS: TOTAL BILIRUBIN ADULT 0.3 MG/DL (0.2-1.0); TOTAL PROTEIN 6.5 GM/DL (6.4-8.2)
[2017-09-01 22:42] LABS: ALKALINE PHOSPHATASE 87 U/L (45-117)
[2017-09-01 22:44] LABS: TROPONIN I LESS THAN 0.02 NG/ML (0.02-0.05)
[2017-09-01 22:52] VITALS: BP 173/92; PULSE 68; RESP 16; O2SAT 96
[2017-09-01 23:29] LABS: BILIRUBIN, URINE NEG (NEG); BLOOD, URINE NEG (NEG); GLUCOSE,URINE NEG (NEG); KETONE, URINE TRACE mg/dL (NEG); NITRITE,URINE NEG (NEG); PH, URINE 8.5 (5.0-8.5); URINE COLOR YELLOW (YELLW/STRAW); URINE LEUKOCYTE ESTERASE NEG (NEG)
[2017-09-01 23:38] LABS: RBC, URINE 0-3 /hpf (0-3); SQUAMOUS EPITHELIAL CELL URINE 0-5 /hpf (0-5)
[2017-09-02] VITALS (7 sets, daily range): BP systolic 142–177; BP diastolic 58–87; PULSE 63–82; RESP 18; TEMP 96.9–98.1; O2SAT 97–99
[2017-09-02] MEDS ORDERED: DEXTROSE 50% IN WATER 50 ML VIAL(D50) IV PUSH ONE (00:15)
[2017-09-02] MEDS ORDERED: DEXTROSE 50% IN WATER 50 ML SYRINGE IV PUSH ONE (00:15)
[2017-09-02] MEDS: DEXT 5%-NACL 0.45% 1000 ML INJ 1,000 ML IV SCH ×3 (00:33→18:36)
--- NOTE | 2017-09-02 00:39 | RADRPT ---
EXAM DATE: 09/02/2017 12:30 AM EDT AGE/SEX: 77 years / Male INDICATIONS: Cough and shortness of breath. CLINICAL DATA: This is the patient's initial encounter. Patient reports that signs and symptoms have been present for 1 day and indicates a pain score of Nonresponsive. MEDICAL/SURGICAL HISTORY: . Unobtainable. . Unobtainable. COMPARISON: PO, CHEST SINGLE AP, 05/25/2017. . FINDINGS: A single AP view of the chest demonstrates the lungs to be symmetrically aerated without evidence of mass, infiltrate or effusion. The cardiomediastinal contours are unremarkable. Osseous structures a re intact. CONCLUSION: No acute intrathoracic disease. Stable examination. Electronically signed by: Saul Valdez MD 09/02/2017 12:37 AM EDT
--- NOTE | 2017-09-02 01:31 | RADRPT ---
EXAM DATE: 09/02/2017 1:21 AM EDT AGE/SEX: 77 years / Male INDICATIONS: Evaluate for pneumonia. Weakness. Confusion. CLINICAL DATA: This is the patient's initial encounter. Patient reports that signs and symptoms have been present for 1 day and indicates a pain score of 0/10. MEDICAL/SURGICAL HISTORY: Cardiovascular disease. Aneurysm, abdominal. CABG. RADIATION DOSE: 11.79 CTDI (mGy) COMPARISON: [facility], CHEST SINGLE AP, 09/02/2017. . TECHNIQUE: Multiple contiguous axial images were obtained through the chest without contrast. Image s were obtained in suspended respiration using multiple row detector helical technique. Using automa telly exposure control and adjustment of the mA and/or kV according to patient size, radiation dose was kept as low as reasonably achievable to obtain optimal diagnostic quality images. FINDINGS: Lungs: The lungs are symmetrically aerated. No infiltrates or nodular densities are seen. Mediastinum: There is good visualization of the great vessels of the middle mediastinum. No evidenc e of mediastinal or hilar adenopathy/mass. There are atherosclerotic changes involving the thoracic a eric. There is some mild aneurysmal dilatation involving the arch and proximal descending thoracic ao rta measuring 4.5 x 4.4 cm. Pleurae: No evidence of focal thickening or pleural effusion. Axillae: Unremarkable. Bony Structures: Primary bony degenerative changes. Miscellaneous: The examination was extended to include the upper abdomen, and both adrenal glands ar e normal in size and configuration. CONCLUSION: 1. No acute intrathoracic disease. 2. Atherosclerotic changes of the thoracic aorta with mild aneurysmal dilatation of the arch and waldemar cending thoracic aorta measuring 4.5 x 4.4 cm. Electronically signed by: Saul Valdez MD 09/02/2017 1:30 AM EDT
[2017-09-02 10:21] LABS: AUTOMATED NEUTROPHIL # 4.8 TH/MM3 (1.8-7.7); BASOPHIL % 0.4 % (0.0-2.0); EOSINOPHIL # 0.1 TH/MM3 (0-0.4); EOSINOPHIL % 2.2 % (0.0-4.0); HEMATOCRIT 31.7 % (39.0-51.0); LYMPH % 17.4 % (9.0-44.0); LYMPHOCYTE # 1.1 TH/MM3 (1.0-4.8); MEAN CELL VOLUME 91.1 FL (80.0-100.0); MEAN CORPUSCULAR HEMOGLOBIN 31.5 PG (27.0-34.0); MEAN CORPUSCULAR HGB CONC 34.6 % (32.0-36.0); MEAN PLATELET VOLUME 8.1 FL (7.0-11.0); MONOCYTE # 0.5 TH/MM3 (0-0.9); PLATELET COUNT 222 TH/MM3 (150-450); RED BLOOD COUNT 3.48 MIL/MM3 (4.50-5.90); RED CELL DISTRIBUTION WIDTH 13.6 % (11.6-17.2); WHITE BLOOD COUNT 6.4 TH/MM3 (4.0-11.0)
[2017-09-02] MEDS: PROPRANOLOL HCL 10 MG TAB PO SCH ×3 (10:37→17:35)
[2017-09-02] MEDS: ENALAPRIL MALEATE 10 MG TAB PO SCH ×2 (10:37→21:41)
[2017-09-02] MEDS: amLODIPine BESYLATE 5 MG TAB PO SCH (10:37)
[2017-09-02 10:38] LABS: BICARBONATE 25.5 MEQ/L (21.0-32.0); CALCIUM 8.3 MG/DL (8.5-10.1)
[2017-09-02 10:42] LABS: CREATININE 1.1 MG/DL (0.60-1.30)
--- NOTE | 2017-09-02 11:02 | PD.PN.STU ---
Subjective Remarks HPI Mr. Jaramillo is a 68yo male, with Alzheimer's dementia, brought to the ER yesterday by his diver pumper for altered mental status and generalized weakness. The patient is unable to provide history. He reports feeling "crummy" but cannot specify. I spoke with Hemalatha (diver pumper) on the phone and she said over the past 3 days he has had a lack of energy, has been sleeping all the time, and began wetting the bed. Yesterday he fell out of bed and refused to eat. She reports that he normally follow commands. He has been compliant with his medications. The patient's hearing aids are at home. She denies vomiting or diarrhea. He has a history of numerous falls, his most recent one was a few months ago. PMH -Alzhiemer's dementia -HTN -DM2 -CVA 2004 PSH -AAA repair -Incisional hernia repair -Bilateral inguinal repair -Cardiac stents x4 -bladder lift -appendectomy -tonsillectomy MEDs - reported -Amlodipine -Enalopril -Propranolo -Seroquel -Paroxetine -Donepezil -Namenda -Tamsulosin -Lipitor -Metformin -Glipizide SHX 1ppd smoker for 50+ years Lives with diver pumper Hemalatha for 10+ years, she is POA , 1 son in [place] Objective Vitals Vital Signs Date Time Temp Pulse Resp B/P (MAP) Pulse Ox O2 Delivery O2 Flow Rate FiO2 09/02/17 07:50 96.9 71 18 177/87 (117) 97 09/02/17 02:26 66 16 165/66 (99) 96 09/02/17 01:05 70 18 142/67 (92) 97 Room Air 09/02/17 00:01 75 18 173/68 (103) 99 Room Air 09/01/17 22:52 68 16 173/92 (119) 96 Room Air 09/01/17 21:51 100.2 69 18 181/70 (107) 95 09/01/17 21:51 70 18 96 Nasal Cannula I/O 09/01/17 09/01/17 09/01/17 09/02/17 09/02/17 09/02/17 07:00 15:00 23:00 07:00 15:00 23:00 Intake Total 688 ml Balance 688 ml Intake Oral 240 ml IV Total 448 ml # Voids 1 # Bowel Movements 0 Result Diagram: 09/02/17 1010 09/01/17 2200 Other Results Laboratory Tests Test 09/01/17 22:00 09/01/17 23:22 09/02/17 10:10 White Blood Count 6.4 TH/MM3 6.4 TH/MM3 Red Blood Count 3.44 MIL/MM3 3.48 MIL/MM3 Hemoglobin 10.6 GM/DL 11.0 GM/DL Hematocrit 31.3 % 31.7 % Mean Corpuscular Volume 91.1 FL 91.1 FL Mean Corpuscular Hemoglobin 30.9 PG 31.5 PG Mean Corpuscular Hemoglobin Concent 33.9 % 34.6 % Red Cell Distribution Width 13.2 % 13.6 % Platelet Count 213 TH/MM3 222 TH/MM3 Mean Platelet Volume 9.5 FL 8.1 FL Neutrophils (%) (Auto) 79.3 % 73.0 % Lymphocytes (%) (Auto) 13.3 % 17.4 % Monocytes (%) (Auto) 5.7 % 7.0 % Eosinophils (%) (Auto) 1.0 % 2.2 % Basophils (%) (Auto) 0.7 % 0.4 % Neutrophils # (Auto) 5.0 TH/MM3 4.8 TH/MM3 Lymphocytes # (Auto) 0.9 TH/MM3 1.1 TH/MM3 Monocytes # (Auto) 0.4 TH/MM3 0.5 TH/MM3 Eosinophils # (Auto) 0.1 TH/MM3 0.1 TH/MM3 Basophils # (Auto) 0.0 TH/MM3 0.0 TH/MM3 CBC Comment DIFF FINAL DIFF FINAL Differential Comment Prothrombin Time 10.3 SEC Prothromb Time International Ratio 1.0 RATIO Activated Partial Thromboplast Time 24.8 SEC Blood Urea Nitrogen 18 MG/DL 14 MG/DL Creatinine 1.10 MG/DL 1.10 MG/DL Random Glucose 97 MG/DL 178 MG/DL Total Protein 6.5 GM/DL Albumin 3.2 GM/DL Calcium Level 8.4 MG/DL 8.3 MG/DL Alkaline Phosphatase 87 U/L Aspartate Amino Transf (AST/SGOT) 10 U/L Alanine Aminotransferase (ALT/SGPT) 9 U/L Total Bilirubin 0.3 MG/DL Sodium Level 139 MEQ/L 140 MEQ/L Potassium Level 3.7 MEQ/L 3.6 MEQ/L Chloride Level 107 MEQ/L 107 MEQ/L Carbon Dioxide Level 25.8 MEQ/L 25.5 MEQ/L Anion Gap 6 MEQ/L 8 MEQ/L Estimat Glomerular Filtration Rate 65 ML/MIN 65 ML/MIN Troponin I LESS THAN 0.02 NG/ML Thyroid Stimulating Hormone 3rd Gen 0.461 uIU/ML Ethyl Alcohol Level LESS THAN 3 MG/DL Urine Color YELLOW Urine Turbidity SL CLOUDY Urine pH 8.5 Urine Specific [place] 1.015 Urine Protein TRACE mg/dL Urine Glucose (UA) NEG mg/dL Urine Ketones TRACE mg/dL Urine Occult Blood NEG Urine Nitrite NEG Urine Bilirubin NEG Urine Urobilinogen 0.2 MG/DL Urine Leukocyte Esterase NEG Urine RBC 0-3 /hpf Urine WBC 6-8 /hpf Urine Squamous Epithelial Cells 0-5 /hpf Urine Bacteria NONE /hpf Microscopic Urinalysis Comment CATH-CULT NOT IND Imaging Last Impressions Chest CT 09/02/17 0000 Signed Impressions: CONCLUSION: 1. No acute intrathoracic disease. 2. Atherosclerotic changes of the thoracic aorta with mild aneurysmal dilatati on of the arch and descending thoracic aorta measuring 4.5 x 4.4 cm. Chest X-Ray 09/01/17 0000 Signed Impressions: CONCLUSION: No acute intrathoracic disease. Stable examination. Objective Remarks General - NAD, well developed, NOT oriented to place or time Skin - Dry, intact, numerous tattoos on chest and arms. Eyes - Equal and reactive to light, no icterus Head - atraumatic, normocephalic Cardiovascular - Regular rate and rhythm, no lower extremity edema Pulmonary - Equal breath sounds, no wheezes, rhonchi, or crackles. Abdominal - Large healed vertical incisional scar, no distension, normal bowel sounds, no pain with palpation, no masses. Neurologic - No focal deficits. Able to move all four extremities. Medications and IVs Current Medications Medications (Trade) Dose Ordered Sig/Jer Route PRN Reason Start Time Stop Time Status Last Admin Dose Admin Dextrose/Sodium Chloride 1,000 ml @ 100 mls/hr Q10H IV 09/02/17 00:30 09/02/17 00:33 Amlodipine Besylate (Norvasc) 5 mg DAILY PO 09/02/17 09:00 Enalapril Maleate (Vasotec) 20 mg BID PO 09/02/17 09:00 Propranolol HCl (Inderal) 10 mg TID PO 09/02/17 09:00 A/P Assessment and Plan 77yo man with known alzhemier's dementia, brought to ER for altered mental status. Altered mental status -progressive dementia vs infection vs hypoglycemia vs. electrolyte disturbance -WBC 6.4, high neutrophils -Negative CXR/CT -Urinalysis unremarkable -Normal electrolytes -Glucose 178 -hold glipizide and metformin, sliding scale insulin -Fluids - lower to 75ml/hr -Observe over night -Repeat CBC.BMP tomorrow -PT evaluation tomorrow -Ask diver pumper to bring hearing aids DM2: chronic, stable -Sliding scale insulin HTN: chronic -Home meds - enalopril, propranolol, and amlodipine Hx CVA -Daily aspirin The exam, history, and the medical decision-making described in the above note were completed with the assistance of Andreina Blank MS4. I reviewed and agree with the findings presented. I attest that I had a [id number] encounter with the patient on the same day, and personally performed and documented my assessment and findings in the medical record. Andreina Blank Sep 02, 2017 11:02 Frankie Osborne MD Sep 02, 2017 13:41
--- NOTE | 2017-09-02 13:34 | HHI.HP ---
[facility] Primary Care Physician Pranav Lebron MD Admission Diagnosis AMS, HYPOGLYCEMIA, DEMENTIA EXACERBATION Diagnoses: Chief Complaint: Weakness, altered mental status. Travel History International Travel<30 Days: No Contact w/Intl Traveler <30 Da: No Traveled to Known Affected Are: No History of Present Illness 68-year-old with a medical history significant for dementia, hypertension, diabetes, history of CVA brought to the emergency room by caregiver for generalized weakness and altered mental status. The patient states that he has no energy but is unable to elaborate. Caregiver reports the patient has been refusing to eat and lack of energy. He is sleeping a lot more. Workup in the emergency room so far unremarkable. Review of Systems Constitutional: COMPLAINS OF: Fatigue, DENIES: Fever, Chills Respiratory: DENIES: Shortness of breath Cardiovascular: DENIES: Chest pain Neurologic: DENIES: Localized weakness Psychiatric: COMPLAINS OF: Confusion Past Family Social History Past Medical History -Alzheimer's dementia -HTN -DM2 -CVA 2004 Past Surgical History -AAA repair -Hernia repair -Cardiac stents x4 -appendectomy -tonsillectomy Reported Medications Reported Meds & Active Scripts Active Reported Flomax (Tamsulosin HCl) 0.4 Mg Cap 0.4 Mg PO HS Enalapril (Enalapril Maleate) 20 Mg Tab 40 Mg PO BID Inderal LA 24 HR (Propranolol HCl) 60 Mg Cap 20 Mg PO TID Norvasc (Amlodipine Besylate) 5 Mg Tab 5 Mg PO DAILY Seroquel (Quetiapine Fumarate) 50 Mg Tab 50 Mg PO HS Lipitor (Atorvastatin Calcium) 80 Mg Tab 80 Mg PO HS Paroxetine (Paroxetine HCl) 40 Mg Tab 40 Mg PO DAILY Pantoprazole (Pantoprazole Sodium) 40 Mg Tab 40 Mg PO BID Metformin (Metformin HCl) 1,000 Mg Tab 1,000 Mg PO TIDAC Namenda (Memantine) 5 Mg Tab 5 Mg PO BID Glipizide 10 Mg Tab 10 Mg PO BIDAC Take 30 minutes before a meal Trusopt Opth Drops (Dorzolamide HCl) 2% Soln 1 Drop LEFT EYE TID Donepezil 5 Mg Tab 5 Mg PO HS Aspirin EC (Aspirin) 81 Mg Tabdr 81 Mg PO DAILY Allergies: Coded Allergies: No Known Allergies (Verified Allergy, Unknown, 09/01/17) Social History 1 ppd smoker for 50+ years Lives with mold washer Hemalatha for 10+ years, she is POA , 1 son in [place] Physical Exam Vital Signs Vital Signs Date Time Temp Pulse Resp B/P (MAP) Pulse Ox O2 Delivery O2 Flow Rate FiO2 09/02/17 11:40 98.1 82 18 167/65 (99) 98 09/02/17 07:50 96.9 71 18 177/87 (117) 97 09/02/17 02:26 66 16 165/66 (99) 96 09/02/17 01:05 70 18 142/67 (92) 97 Room Air 09/02/17 00:01 75 18 173/68 (103) 99 Room Air 09/01/17 22:52 68 16 173/92 (119) 96 Room Air 09/01/17 21:51 100.2 69 18 181/70 (107) 95 09/01/17 21:51 70 18 96 Nasal Cannula Physical Exam GENERAL: This is a well-nourished, well-developed patient, in no apparent distress. CARDIOVASCULAR: Normal rate and regular rhythm without murmurs, gallops, or rubs. RESPIRATORY: Good respiratory efforts. Breath sounds equal and clear to auscultation bilaterally. GASTROINTESTINAL: Abdomen soft, non-tender, non-distended. Normal active bowel sounds MUSCULOSKELETAL: Extremities without cyanosis, or edema. NEURO: No focal deficits. Able to move all four extremities. Demented. PSYCH: Appropriate mood and affect. Laboratory Laboratory Tests Test 09/01/17 22:00 09/01/17 23:22 09/02/17 10:10 White Blood Count 6.4 6.4 Red Blood Count 3.44 3.48 Hemoglobin 10.6 11.0 Hematocrit 31.3 31.7 Mean Corpuscular Volume 91.1 91.1 Mean Corpuscular Hemoglobin 30.9 31.5 Mean Corpuscular Hemoglobin Concent 33.9 34.6 Red Cell Distribution Width 13.2 13.6 Platelet Count 213 222 Mean Platelet Volume 9.5 8.1 Neutrophils (%) (Auto) 79.3 73.0 Lymphocytes (%) (Auto) 13.3 17.4 Monocytes (%) (Auto) 5.7 7.0 Eosinophils (%) (Auto) 1.0 2.2 Basophils (%) (Auto) 0.7 0.4 Neutrophils # (Auto) 5.0 4.8 Lymphocytes # (Auto) 0.9 1.1 Monocytes # (Auto) 0.4 0.5 Eosinophils # (Auto) 0.1 0.1 Basophils # (Auto) 0.0 0.0 CBC Comment DIFF FINAL DIFF FINAL Differential Comment Prothrombin Time 10.3 Prothromb Time International Ratio 1.0 Activated Partial Thromboplast Time 24.8 Blood Urea Nitrogen 18 14 Creatinine 1.10 1.10 Random Glucose 97 178 Total Protein 6.5 Albumin 3.2 Calcium Level 8.4 8.3 Alkaline Phosphatase 87 Aspartate Amino Transf (AST/SGOT) 10 Alanine Aminotransferase (ALT/SGPT) 9 Total Bilirubin 0.3 Sodium Level 139 140 Potassium Level 3.7 3.6 Chloride Level 107 107 Carbon Dioxide Level 25.8 25.5 Anion Gap 6 8 Estimat Glomerular Filtration Rate 65 65 Troponin I LESS THAN 0.02 Thyroid Stimulating Hormone 3rd Gen 0.461 Ethyl Alcohol Level LESS THAN 3 Urine Color YELLOW Urine Turbidity SL CLOUDY Urine pH 8.5 Urine Specific [place] 1.015 Urine Protein TRACE Urine Glucose (UA) NEG Urine Ketones TRACE Urine Occult Blood NEG Urine Nitrite NEG Urine Bilirubin NEG Urine Urobilinogen 0.2 Urine Leukocyte Esterase NEG Urine RBC 0-3 Urine WBC 6-8 Urine Squamous Epithelial Cells 0-5 Urine Bacteria NONE Microscopic Urinalysis Comment CATH-CULT NOT IND Result Diagram: 09/02/17 1010 09/02/17 1010 Imaging Last Impressions Chest CT 09/02/17 0000 Signed Impressions: CONCLUSION: 1. No acute intrathoracic disease. 2. Atherosclerotic changes of the thoracic aorta with mild aneurysmal dilatati on of the arch and descending thoracic aorta measuring 4.5 x 4.4 cm. Chest X-Ray 09/01/17 0000 Signed Impressions: CONCLUSION: No acute intrathoracic disease. Stable examination. Caprini VTE Risk Assessment Caprini VTE Risk Assessment: Mod/High Risk (score >= 2) Caprini Risk Assessment Model Point Value = 1 Point Value = 2 Point Value = 3 Point Value = 5 Age 41-60 Minor surgery BMI > 25 kg/m2 Swollen legs Varicose veins or History of unexplained or recurrent spontaneous Oral contraceptives or hormone replacement Sepsis (< 1 month) Serious lung disease, including pneumonia (< 1 month) Abnormal pulmonary function Acute myocardial infarction Congestive heart failure (< 1 month) History of inflammatory bowel disease Medical patient at bed rest Age 61-74 Arthroscopic surgery Major open surgery (> 45 min) Laparoscopic surgery (> 45 min) Malignancy Confined to bed (> 72 hours) Immobilizing plaster cast Central venous access Age >= 75 History of VTE Family history of VTE Factor V Leiden Prothrombin [id number] Lupus anticoagulant Anticardiolipin antibodies Elevated serum homocysteine Heparin-induced thrombocytopenia Other congenital or acquired thrombophilia Stroke (< 1 month) Elective arthroplasty Hip, pelvis, or leg fracture Acute spinal cord injury (< 1 month) Prophylaxis Regimen Total Risk Factor Score Risk Level Prophylaxis Regimen 0-1 Low Early ambulation 2 Moderate Order ONE of the following: *Sequential Compression Device (SCD) *Heparin 5000 units SQ BID 3-4 Higher Order ONE of the following medications: *Heparin 5000 units SQ TID *Enoxaparin/Lovenox 40 mg SQ daily (WT < 150 kg, CrCl > 30 mL/min) *Enoxaparin/Lovenox 30 mg SQ daily (WT < 150 kg, CrCl > 10-29 mL/min) *Enoxaparin/Lovenox 30 mg SQ BID (WT < 150 kg, CrCl > 30 mL/min) AND/OR *Sequential Compression Device (SCD) 5 or more Highest Order ONE of the following medications: *Heparin 5000 units SQ TID (Preferred with Epidurals) *Enoxaparin/Lovenox 40 mg SQ daily (WT < 150 kg, CrCl > 30 mL/min) *Enoxaparin/Lovenox 30 mg SQ daily (WT < 150 kg, CrCl > 10-29 mL/min) *Enoxaparin/Lovenox 30 mg SQ BID (WT < 150 kg, CrCl > 30 mL/min) AND *Sequential Compression Device (SCD) Assessment and Plan Problem List: (1) Altered mental status ICD Code: R41.82 - Altered mental status, unspecified Status: Acute Plan: There is no obvious etiology for the mental status change. This is probably behavioral disturbance related to Dementia Continue to monitor and redirect patient. Encourage PO intake. (2) Alzheimer's dementia ICD Code: G30.9 - Alzheimer's disease, unspecified Status: Chronic (3) Generalized weakness ICD Code: R53.1 - Weakness Status: Acute Plan: May be secondary to poor oral intake PT to eval. (4) H/O: CVA (cerebrovascular accident) ICD Code: Z86.73 - Personal history of transient ischemic attack (TIA), and cerebral infarction without residual deficits Status: Chronic Plan: Continue aspirin. No focal deficits. (5) DM (diabetes mellitus) ICD Code: E11.9 - Type 2 diabetes mellitus without complications Status: Chronic Plan: Continue Metformin. Hold Glipizide. (6) HTN (hypertension) ICD Code: I10 - Essential (primary) hypertension Status: Chronic Plan: Continue Amlodipine. Discussed Condition With Andreina Blank MS4 Problem Qualifiers (1) Altered mental status: Qualified Codes: R41.82 - Altered mental status, unspecified (2) Alzheimer's dementia: Frankie Osborne MD Sep 02, 2017 13:34
[2017-09-02] MEDS: metFORMIN HCL 500 MG TAB PO SCH ×2 (13:37→17:35)
--- NOTE | 2017-09-02 19:05 | EKG ---
Date Performed: 09/01/2017 Time Performed: 22:20:09 PTAGE: 77 years EKG: Sinus rhythm WITH SHORT NV INTERVAL Since the PREVIOUS TRACING , no significant change noted DOCTOR: Patricia Romo Interpretating Date/Time 09/02/2017 19:04:29
[2017-09-02] MEDS ORDERED: QUEtiapine FUMARATE 25 MG TAB PO SCH (21:00)
[2017-09-02] MEDS: TAMSULOSIN HCL 0.4 MG CAP PO SCH (21:40)
[2017-09-02] MEDS: DONEPEZIL HCL 5 MG TAB PO SCH (21:41)
[2017-09-02] MEDS: ATORVASTATIN 40 MG TAB PO SCH (21:41)
[2017-09-02] MEDS: QUEtiapine FUMARATE 25 MG TAB PO SCH (21:41)
[2017-09-02] MEDS: PANTOPRAZOLE SOD 40 MG DELAYED RELEASE TAB PO SCH (21:41)
[2017-09-03] VITALS (7 sets, daily range): BP systolic 134–185; BP diastolic 62–88; PULSE 64–73; RESP 16–20; TEMP 97–98.9; O2SAT 67–96
[2017-09-03] MEDS: DEXT 5%-NACL 0.45% 1000 ML INJ 1,000 ML IV SCH (05:48)
[2017-09-03] MEDS: ENALAPRIL MALEATE 10 MG TAB PO SCH ×2 (08:35→21:12)
[2017-09-03] MEDS: amLODIPine BESYLATE 5 MG TAB PO SCH (08:35)
[2017-09-03] MEDS: metFORMIN HCL 500 MG TAB PO SCH ×3 (08:35→16:21)
[2017-09-03] MEDS: PANTOPRAZOLE SOD 40 MG DELAYED RELEASE TAB PO SCH ×2 (08:35→21:12)
[2017-09-03] MEDS: PROPRANOLOL HCL 10 MG TAB PO SCH ×3 (08:35→17:04)
[2017-09-03] MEDS: PARoxetine HCL 20 MG TAB PO SCH (08:35)
[2017-09-03] MEDS: ASPIRIN EC 81 MG TABEC PO SCH (08:35)
--- NOTE | 2017-09-03 13:42 | HHI.PR ---
Subjective Remarks Patient is still refusing to eat. He states he is not interested and not hungry. Objective Vitals Vital Signs Date Time Temp Pulse Resp B/P (MAP) Pulse Ox O2 Delivery O2 Flow Rate FiO2 09/03/17 13:28 97.8 67 18 180/88 (118) 96 09/03/17 12:18 139/70 (93) 67 09/03/17 08:00 98.9 69 17 149/68 (95) 96 09/03/17 00:00 97.0 64 18 134/62 (86) 96 09/02/17 20:00 97.0 63 18 167/79 (108) 99 I/O 09/02/17 09/02/17 09/02/17 09/03/17 09/03/17 09/03/17 07:00 15:00 23:00 07:00 15:00 23:00 Intake Total 688 ml 1880 ml 1275 ml Balance 688 ml 1880 ml 1275 ml Intake Oral 240 ml 480 ml IV Total 448 ml 1400 ml 1275 ml # Voids 1 10 7 # Bowel Movements 0 1 0 Result Diagram: 09/02/17 1010 09/02/17 1010 Objective Remarks GENERAL: Elderly male in no apparent distress. CARDIOVASCULAR: Normal rate and regular rhythm without murmurs, gallops, or rubs. RESPIRATORY: Good respiratory efforts. Breath sounds equal and clear to auscultation bilaterally. GASTROINTESTINAL: Abdomen soft, non-tender, non-distended. Normal active bowel sounds MUSCULOSKELETAL: Extremities without cyanosis, or edema. NEURO: Alert & Oriented to self only. Moves all ext x4 PSYCH: Somewhat flat affect A/P Problem List: (1) Altered mental status ICD Code: R41.82 - Altered mental status, unspecified Status: Acute Plan: There is no obvious etiology for the mental status change. Most likely related to dementia. I discussed with the patient's caregiver/POA Hemalatha who indicated he has been declining and inquired about hospice at this time. She states he was previously on hospice Hospice consulted. Continue to monitor and redirect patient. Encourage PO intake. (2) Alzheimer's dementia ICD Code: G30.9 - Alzheimer's disease, unspecified Status: Chronic Plan: Patient is already on Seroquel, Aricept, and Paxil. His dementia has been getting worse per his caregiver. She requested hospice services at this point which I believe is appropriate. Hospice is consulted. I did decrease Seroquel dose to 25 mg nightly because it was reported that he has been sleeping a lot. (3) Generalized weakness ICD Code: R53.1 - Weakness Status: Acute Plan: Improved. Ambulating well with PT. (4) H/O: CVA (cerebrovascular accident) ICD Code: Z86.73 - Personal history of transient ischemic attack (TIA), and cerebral infarction without residual deficits Status: Chronic Plan: Continue aspirin. No focal deficits. (5) DM (diabetes mellitus) ICD Code: E11.9 - Type 2 diabetes mellitus without complications Status: Chronic Plan: Continue Metformin. Hold Glipizide. Plan to discontinue glipizide on discharge since he does not eat consistently. (6) HTN (hypertension) ICD Code: I10 - Essential (primary) hypertension Status: Chronic Plan: Continue Amlodipine. Discharge Planning Hospice consulted. Will probably discharge home with hospice versus long-term care with hospice by tomorrow. Problem Qualifiers (1) Altered mental status: Qualified Codes: R41.82 - Altered mental status, unspecified (2) Alzheimer's dementia: Frankie Osborne MD Sep 03, 2017 13:42
[2017-09-03] MEDS: DONEPEZIL HCL 5 MG TAB PO SCH (21:12)
[2017-09-03] MEDS: ATORVASTATIN 40 MG TAB PO SCH (21:12)
[2017-09-03] MEDS: QUEtiapine FUMARATE 25 MG TAB PO SCH (21:12)
[2017-09-03] MEDS: TAMSULOSIN HCL 0.4 MG CAP PO SCH (21:12)
[2017-09-04] VITALS: BP 179/74; PULSE 64; RESP 20; TEMP 98.7; O2SAT 98
[2017-09-04] MEDS: DEXT 5%-NACL 0.45% 1000 ML INJ 1,000 ML IV SCH ×3 (01:33→19:51)
[2017-09-04] MEDS: PARoxetine HCL 20 MG TAB PO SCH (08:12)
[2017-09-04] MEDS: PANTOPRAZOLE SOD 40 MG DELAYED RELEASE TAB PO SCH ×2 (08:12→19:50)
[2017-09-04] MEDS: PROPRANOLOL HCL 10 MG TAB PO SCH ×3 (08:12→18:00)
[2017-09-04] MEDS: amLODIPine BESYLATE 5 MG TAB PO SCH (08:12)
[2017-09-04] MEDS: metFORMIN HCL 500 MG TAB PO SCH ×3 (08:12→18:01)
[2017-09-04] MEDS: ASPIRIN EC 81 MG TABEC PO SCH (08:13)
[2017-09-04 08:49] VITALS: BP 167/74; PULSE 74; RESP 18; TEMP 98.2; O2SAT 94
[2017-09-04] MEDS: ENALAPRIL MALEATE 10 MG TAB PO SCH ×2 (08:55→19:51)
[2017-09-04 12:05] VITALS: BP 131/60; PULSE 62; RESP 17; TEMP 98.4; O2SAT 97
--- NOTE | 2017-09-04 16:27 | HHI.PR ---
Subjective Remarks Pt states he feels "ok". Had loose stools today. Per RN was molina foul smelling. Pt states he ate 1/4 of his lunch today. no nausea or vomiting. appetite is poor. Objective Vitals Vital Signs Date Time Temp Pulse Resp B/P (MAP) Pulse Ox O2 Delivery O2 Flow Rate FiO2 09/04/17 12:05 98.4 62 17 131/60 (83) 97 09/04/17 08:49 98.2 74 18 167/74 (105) 94 09/04/17 00:00 98.7 64 20 179/74 (109) 98 09/03/17 20:00 97.8 71 20 157/70 (99) 96 09/03/17 17:00 136/76 (96) I/O 09/03/17 09/03/17 09/03/17 09/04/17 09/04/17 09/04/17 07:00 15:00 23:00 07:00 15:00 23:00 Intake Total 1275 ml 1367 ml Balance 1275 ml 1367 ml Intake Oral 720 ml IV Total 1275 ml 647 ml # Voids 7 6 6 # Bowel Movements 0 1 4 Result Diagram: 09/02/17 1010 09/02/17 1010 Imaging Last Impressions Chest CT 09/02/17 0000 Signed Impressions: CONCLUSION: 1. No acute intrathoracic disease. 2. Atherosclerotic changes of the thoracic aorta with mild aneurysmal dilatati on of the arch and descending thoracic aorta measuring 4.5 x 4.4 cm. Chest X-Ray 09/01/17 0000 Signed Impressions: CONCLUSION: No acute intrathoracic disease. Stable examination. Objective Remarks GENERAL: Elderly male, laying in bed CARDIOVASCULAR: Normal rate and regular rhythm without murmurs RESPIRATORY: Good respiratory efforts. Breath sounds equal and clear to auscultation bilaterally. GASTROINTESTINAL: Abdomen soft, non-tender, non-distended. Normal active bowel sounds MUSCULOSKELETAL: Extremities without edema. NEURO: Alert & Oriented to self only. Moves all ext x4 PSYCH: Somewhat flat affect A/P Problem List: (1) Altered mental status ICD Code: R41.82 - Altered mental status, unspecified Status: Acute (2) Alzheimer's dementia ICD Code: G30.9 - Alzheimer's disease, unspecified Status: Chronic (3) Generalized weakness ICD Code: R53.1 - Weakness Status: Acute (4) H/O: CVA (cerebrovascular accident) ICD Code: Z86.73 - Personal history of transient ischemic attack (TIA), and cerebral infarction without residual deficits Status: Chronic (5) DM (diabetes mellitus) ICD Code: E11.9 - Type 2 diabetes mellitus without complications Status: Chronic (6) HTN (hypertension) ICD Code: I10 - Essential (primary) hypertension Status: Chronic Assessment and Plan (1) Altered mental status There is no obvious etiology for the mental status change. Most likely related to dementia. Previous hospitalist had discussed with the patient's caregiver/ POMaxwell Penny who indicated he has been declining and inquired about hospice at this time. Apparently he was previously on [facility] hospice in the past. Hospice evaluated the patient today and he was deemed not a hospice candidate. Continue to monitor and redirect patient. Encourage PO intake. (2) Alzheimer's dementia Patient is already on Seroquel, Aricept, and Paxil. His dementia has been getting worse per his caregiver. She requested hospice services however hospice did evaluate the patient but he didn't meet hospice criteria. Dose of d Seroquel was decreased to 25 mg nightly because it was reported that he has been sleeping a lot. (3) Generalized weakness Improved. Ambulating well with PT. (4) H/O: CVA (cerebrovascular accident) Continue aspirin. No focal deficits. (5) DM (diabetes mellitus) Continue Metformin. Hold Glipizide. Plan to discontinue glipizide on discharge since he does not eat consistently. (6) HTN (hypertension) Continue Amlodipine. (7) foul smelling stools and diarrhea: stool studies have been ordered. [facility] hospice evaluated the pt however he was deemed not a hospice candidate. I have consulted RD for a calory count which will be started over the weekend. I have encouraged pt to eat and drink. Monitor clinically. switch to a regular diet w no salt packets Problem Qualifiers (1) Altered mental status: Qualified Codes: R41.82 - Altered mental status, unspecified (2) Alzheimer's dementia: Tianna Bañuelos MD Sep 04, 2017 16:27
[2017-09-04 17:12] VITALS: BP 183/79; PULSE 64; RESP 17; TEMP 97.6; O2SAT 96
[2017-09-04 19:48] VITALS: BP 154/78; PULSE 98; RESP 14; TEMP 97.8; O2SAT 99
[2017-09-04] MEDS: ATORVASTATIN 40 MG TAB PO SCH (19:50)
[2017-09-04] MEDS: DONEPEZIL HCL 5 MG TAB PO SCH (19:50)
[2017-09-04] MEDS: QUEtiapine FUMARATE 25 MG TAB PO SCH (19:51)
[2017-09-04] MEDS: TAMSULOSIN HCL 0.4 MG CAP PO SCH (19:51)
[2017-09-04 20:00] VITALS: BP 154/78; PULSE 98; RESP 14; TEMP 97.8; O2SAT 99
[2017-09-05] VITALS: BP 151/75; PULSE 66; RESP 18; TEMP 98.1; O2SAT 95
[2017-09-05 06:42] LABS: AUTOMATED NEUTROPHIL # 3.7 TH/MM3 (1.8-7.7); BASOPHIL # 0.1 TH/MM3 (0-0.2); EOSINOPHIL # 0.3 TH/MM3 (0-0.4); EOSINOPHIL % 4.3 % (0.0-4.0); HEMATOCRIT 30.1 % (39.0-51.0); HEMOGLOBIN 10.3 GM/DL (13.0-17.0); LYMPH % 23.5 % (9.0-44.0); LYMPHOCYTE # 1.4 TH/MM3 (1.0-4.8); MEAN CORPUSCULAR HEMOGLOBIN 31.3 PG (27.0-34.0); MEAN CORPUSCULAR HGB CONC 34.4 % (32.0-36.0); MEAN PLATELET VOLUME 8.8 FL (7.0-11.0); MONO % 9.5 % (0.0-8.0); MONOCYTE # 0.6 TH/MM3 (0-0.9); NEUT % 61.7 % (16.0-70.0); PLATELET COUNT 214 TH/MM3 (150-450); RED CELL DISTRIBUTION WIDTH 13.3 % (11.6-17.2); WHITE BLOOD COUNT 6.1 TH/MM3 (4.0-11.0)
[2017-09-05 06:52] LABS: CALCIUM 8.3 MG/DL (8.5-10.1)
[2017-09-05 06:53] LABS: BICARBONATE 23.3 MEQ/L (21.0-32.0); MAGNESIUM 1.6 MG/DL (1.5-2.5)
[2017-09-05 06:56] LABS: CREATININE 1.1 MG/DL (0.60-1.30)
[2017-09-05 07:41] VITALS: BP 148/72; PULSE 68; RESP 20; TEMP 98.2; O2SAT 96
[2017-09-05] MEDS: amLODIPine BESYLATE 5 MG TAB PO SCH (08:03)
[2017-09-05] MEDS: PANTOPRAZOLE SOD 40 MG DELAYED RELEASE TAB PO SCH ×2 (08:03→21:21)
[2017-09-05] MEDS: PROPRANOLOL HCL 10 MG TAB PO SCH ×3 (08:03→17:45)
[2017-09-05] MEDS: metFORMIN HCL 500 MG TAB PO SCH ×2 (08:03→16:27)
[2017-09-05] MEDS: ASPIRIN EC 81 MG TABEC PO SCH (08:03)
[2017-09-05] MEDS: PARoxetine HCL 20 MG TAB PO SCH (08:08)
[2017-09-05] MEDS: ENALAPRIL MALEATE 10 MG TAB PO SCH ×2 (08:09→21:20)
[2017-09-05] MEDS: MEGESTROL ACETATE SUSP 400 MG/10 ML CUP PO SCH (09:40)
--- NOTE | 2017-09-05 11:05 | HHI.PR ---
Subjective Remarks Pt has no complaints, states that he "ate some". Per RN, this morning pt ate 50 % of his breakfast but required encouragement, he does like the glucernas. pt denies any n/v/abdominal pain. Objective Vitals Vital Signs Date Time Temp Pulse Resp B/P (MAP) Pulse Ox O2 Delivery O2 Flow Rate FiO2 09/05/17 07:41 98.2 68 20 148/72 (97) 96 09/05/17 00:00 98.1 66 18 151/75 (100) 95 09/04/17 20:00 97.8 98 14 154/78 (103) 99 09/04/17 19:48 97.8 98 14 154/78 (103) 99 09/04/17 17:12 97.6 64 17 183/79 (113) 96 09/04/17 12:05 98.4 62 17 131/60 (83) 97 I/O 09/04/17 09/04/17 09/04/17 09/05/17 09/05/17 09/05/17 07:00 15:00 23:00 07:00 15:00 23:00 Intake Total 960 ml 1020 ml Balance 960 ml 1020 ml Intake Oral 960 ml 120 ml IV Total 900 ml # Voids 6 8 5 # Bowel Movements 4 2 5 Result Diagram: 09/05/17 0550 09/05/17 0550 Imaging Last Impressions Chest CT 09/02/17 0000 Signed Impressions: CONCLUSION: 1. No acute intrathoracic disease. 2. Atherosclerotic changes of the thoracic aorta with mild aneurysmal dilatati on of the arch and descending thoracic aorta measuring 4.5 x 4.4 cm. Chest X-Ray 09/01/17 0000 Signed Impressions: CONCLUSION: No acute intrathoracic disease. Stable examination. Objective Remarks GENERAL: laying in bed, appears comfortable. CARDIOVASCULAR: Normal rate and regular rhythm without murmurs RESPIRATORY: Good respiratory efforts. Breath sounds equal and clear to auscultation bilaterally. GASTROINTESTINAL: Abdomen soft, non-tender, non-distended. Normal active bowel sounds MUSCULOSKELETAL: Extremities without edema. A/P Problem List: (1) Altered mental status ICD Code: R41.82 - Altered mental status, unspecified Status: Acute (2) Alzheimer's dementia ICD Code: G30.9 - Alzheimer's disease, unspecified Status: Chronic (3) Generalized weakness ICD Code: R53.1 - Weakness Status: Acute (4) H/O: CVA (cerebrovascular accident) ICD Code: Z86.73 - Personal history of transient ischemic attack (TIA), and cerebral infarction without residual deficits Status: Chronic (5) DM (diabetes mellitus) ICD Code: E11.9 - Type 2 diabetes mellitus without complications Status: Chronic (6) HTN (hypertension) ICD Code: I10 - Essential (primary) hypertension Status: Chronic Assessment and Plan (1) Altered mental status There is no obvious etiology for the mental status change. Most likely related to dementia. Previous hospitalist had discussed with the patient's caregiver/ MELINDA Penny who indicated he has been declining and inquired about hospice at this time. Apparently he was previously on [facility] hospice in the past. [place] [facility] evaluated the patient and he was deemed not a hospice candidate. Continue to monitor and redirect patient. Encourage PO intake. (2) Alzheimer's dementia/poor appetite Patient is already on Seroquel, Aricept, and Paxil. His dementia has been getting worse per his caregiver. She requested hospice services however hospice did evaluate the patient but he didn't meet hospice criteria. Dose of d Seroquel was decreased to 25 mg nightly because it was reported that he has been sleeping a lot. Added megace for his appetite (3) Generalized weakness Improved. Ambulating well with PT. (4) H/O: CVA (cerebrovascular accident) Continue aspirin. No focal deficits. (5) DM (diabetes mellitus) Continue Metformin. Hold Glipizide. Plan to discontinue glipizide on discharge since he does not eat consistently. (6) HTN (hypertension) Continue Amlodipine. (7) foul smelling stools and diarrhea: stool studies still pending. Decreased metformin dose to 500mg BID as this could be contributing to his symptoms. Per RN, today he had a BM which was formed and not loose Discharge Planning hospice evaluated the pt however he was deemed not a hospice candidate. RD following and has started a calory count. I have encouraged pt to eat and drink. Monitor clinically. switch to a regular diet w no salt packets Problem Qualifiers (1) Altered mental status: Qualified Codes: R41.82 - Altered mental status, unspecified (2) Alzheimer's dementia: Tianna Bañuelos MD Sep 05, 2017 11:05
[2017-09-05 11:19] VITALS: BP 144/68; PULSE 64; RESP 20; TEMP 98.8; O2SAT 96
[2017-09-05 15:06] VITALS: BP 138/70; PULSE 70; RESP 20; TEMP 98.9; O2SAT 96
[2017-09-05] MEDS: DEXT 5%-NACL 0.45% 1000 ML INJ 1,000 ML IV SCH ×2 (17:33→21:20)
[2017-09-05 20:00] VITALS: BP 146/69; PULSE 66; RESP 20; TEMP 97.9; O2SAT 97
[2017-09-05] MEDS: ATORVASTATIN 40 MG TAB PO SCH (21:20)
[2017-09-05] MEDS: DONEPEZIL HCL 5 MG TAB PO SCH (21:20)
[2017-09-05] MEDS: TAMSULOSIN HCL 0.4 MG CAP PO SCH (21:20)
[2017-09-05] MEDS: QUEtiapine FUMARATE 25 MG TAB PO SCH (21:21)
[2017-09-06] VITALS: BP 132/63; PULSE 67; RESP 20; TEMP 97.8; O2SAT 94
[2017-09-06] MEDS: metFORMIN HCL 500 MG TAB PO SCH ×2 (06:49→15:56)
[2017-09-06] MEDS ORDERED: LOPERAMIDE HCL 2 MG CAP PO PRN (07:30)
[2017-09-06 07:50] VITALS: BP 148/70; PULSE 69; RESP 18; TEMP 96.9; O2SAT 98
[2017-09-06] MEDS: MEGESTROL ACETATE SUSP 400 MG/10 ML CUP PO SCH (07:58)
[2017-09-06] MEDS: ENALAPRIL MALEATE 10 MG TAB PO SCH ×2 (07:59→21:16)
[2017-09-06] MEDS: LACTOBACILLUS ACIDOPHILUS TAB PO SCH ×3 (07:59→17:26)
[2017-09-06] MEDS: amLODIPine BESYLATE 5 MG TAB PO SCH (07:59)
[2017-09-06] MEDS: PROPRANOLOL HCL 10 MG TAB PO SCH ×3 (07:59→17:26)
[2017-09-06] MEDS: PARoxetine HCL 20 MG TAB PO SCH (07:59)
[2017-09-06] MEDS: ASPIRIN EC 81 MG TABEC PO SCH (07:59)
[2017-09-06] MEDS: PANTOPRAZOLE SOD 40 MG DELAYED RELEASE TAB PO SCH ×2 (07:59→21:16)
[2017-09-06] MEDS ORDERED: MEGESTROL ACETATE SUSP 400 MG/10 ML CUP PO SCH (09:00)
[2017-09-06 11:55] VITALS: BP 139/63; RESP 18; TEMP 98.2; O2SAT 95
--- NOTE | 2017-09-06 14:12 | HHI.PR ---
Subjective Remarks Pt feels ok, no complaints. states he did eat some of his breakfast. no n/v/cp/ sob Objective Vitals Vital Signs Date Time Temp Pulse Resp B/P (MAP) Pulse Ox O2 Delivery O2 Flow Rate FiO2 09/06/17 11:55 98.2 18 139/63 (88) 95 09/06/17 07:50 96.9 69 18 148/70 (96) 98 09/06/17 00:00 97.8 67 20 132/63 (86) 94 09/05/17 20:00 97.9 66 20 146/69 (94) 97 09/05/17 15:06 98.9 70 20 138/70 (92) 96 I/O 09/05/17 09/05/17 09/05/17 09/06/17 09/06/17 09/06/17 06:59 14:59 22:59 06:59 14:59 22:59 Intake Total 1020 ml 2884 ml 617 ml Balance 1020 ml 2884 ml 617 ml Intake Oral 120 ml 840 ml 0 ml IV Total 900 ml 2044 ml 617 ml # Voids 5 4 5 # Bowel Movements 5 3 1 Result Diagram: 09/05/17 0550 09/05/17 0550 Imaging Last Impressions Chest CT 09/02/17 0000 Signed Impressions: CONCLUSION: 1. No acute intrathoracic disease. 2. Atherosclerotic changes of the thoracic aorta with mild aneurysmal dilatati on of the arch and descending thoracic aorta measuring 4.5 x 4.4 cm. Chest X-Ray 09/01/17 0000 Signed Impressions: CONCLUSION: No acute intrathoracic disease. Stable examination. Objective Remarks GENERAL: laying in bed, appears comfortable. CARDIOVASCULAR: Normal rate and regular rhythm without murmurs RESPIRATORY: Good respiratory efforts. Breath sounds equal and clear to auscultation bilaterally. GASTROINTESTINAL: Abdomen soft, non-tender, non-distended. Normal active bowel sounds MUSCULOSKELETAL: Extremities without edema. A/P Problem List: (1) Altered mental status ICD Code: R41.82 - Altered mental status, unspecified Status: Acute (2) Alzheimer's dementia ICD Code: G30.9 - Alzheimer's disease, unspecified Status: Chronic (3) Generalized weakness ICD Code: R53.1 - Weakness Status: Acute (4) H/O: CVA (cerebrovascular accident) ICD Code: Z86.73 - Personal history of transient ischemic attack (TIA), and cerebral infarction without residual deficits Status: Chronic (5) DM (diabetes mellitus) ICD Code: E11.9 - Type 2 diabetes mellitus without complications Status: Chronic (6) HTN (hypertension) ICD Code: I10 - Essential (primary) hypertension Status: Chronic Assessment and Plan (1) Altered mental status There is no obvious etiology for the mental status change. Most likely related to dementia. Previous hospitalist had discussed with the patient's caregiver/ MELINDA Pneny who indicated he has been declining and inquired about hospice at this time. Apparently he was previously on [facility] hospice in the past. [facility] evaluated the patient and he was deemed not a hospice candidate. Looks like he ate most of his breakfast today. he was started on megace. Continue to monitor and redirect patient. Encourage PO intake. (2) Alzheimer's dementia/poor appetite Patient is already on Seroquel, Aricept, and Paxil. His dementia has been getting worse per his caregiver. She requested hospice services however hospice did evaluate the patient but he didn't meet hospice criteria. Dose of d Seroquel was decreased to 25 mg nightly because it was reported that he has been sleeping a lot. on megace for his appetite (3) Generalized weakness Improved. Ambulating well with PT. (4) H/O: CVA (cerebrovascular accident) Continue aspirin. No focal deficits. (5) DM (diabetes mellitus) Continue Metformin. Hold Glipizide. Plan to discontinue glipizide on discharge since he does not eat consistently. (6) HTN (hypertension) Continue Amlodipine. (7) foul smelling stools and diarrhea: stool studies still pending although a few WBC were noted. Decreased metformin dose to 500mg BID as this could be contributing to his symptoms. [facility]charge [facility] hospice evaluated the pt however he was deemed not a hospice candidate. RD following and has started a calory count. I have encouraged pt to eat and drink. Monitor clinically. switch to a regular diet w no salt packets CM assisting w d/c planning Problem Qualifiers (1) Altered mental status: Qualified Codes: R41.82 - Altered mental status, unspecified (2) Alzheimer's dementia: Tianna Bañuelos MD Sep 06, 2017 14:12
[2017-09-06 15:43] VITALS: BP 133/62; PULSE 66; RESP 18; TEMP 98.2; O2SAT 95
[2017-09-06 20:00] VITALS: BP 154/67; PULSE 58; RESP 20; TEMP 98.7; O2SAT 97
[2017-09-06] MEDS: DONEPEZIL HCL 5 MG TAB PO SCH (21:16)
[2017-09-06] MEDS: TAMSULOSIN HCL 0.4 MG CAP PO SCH (21:16)
[2017-09-06] MEDS: ATORVASTATIN 40 MG TAB PO SCH (21:17)
[2017-09-06] MEDS: QUEtiapine FUMARATE 25 MG TAB PO SCH (21:17)
[2017-09-07] VITALS: BP 160/82; PULSE 61; RESP 20; TEMP 98.4; O2SAT 98
[2017-09-07] MEDS: metFORMIN HCL 500 MG TAB PO SCH (06:10)
[2017-09-07 06:28] LABS: AUTOMATED NEUTROPHIL # 4.6 TH/MM3 (1.8-7.7); BASOPHIL # 0.1 TH/MM3 (0-0.2); BASOPHIL % 1.3 % (0.0-2.0); EOSINOPHIL # 0.2 TH/MM3 (0-0.4); EOSINOPHIL % 2.4 % (0.0-4.0); HEMATOCRIT 31.9 % (39.0-51.0); LYMPH % 23.6 % (9.0-44.0); LYMPHOCYTE # 1.7 TH/MM3 (1.0-4.8); MEAN CELL VOLUME 91.5 FL (80.0-100.0); MEAN CORPUSCULAR HEMOGLOBIN 28.8 PG (27.0-34.0); MEAN CORPUSCULAR HGB CONC 31.5 % (32.0-36.0); MEAN PLATELET VOLUME 8.6 FL (7.0-11.0); MONO % 8.7 % (0.0-8.0); MONOCYTE # 0.6 TH/MM3 (0-0.9); PLATELET COUNT 237 TH/MM3 (150-450); RED BLOOD COUNT 3.49 MIL/MM3 (4.50-5.90); RED CELL DISTRIBUTION WIDTH 13.2 % (11.6-17.2); WHITE BLOOD COUNT 7.2 TH/MM3 (4.0-11.0)
[2017-09-07 06:39] LABS: CALCIUM 8.7 MG/DL (8.5-10.1)
[2017-09-07 06:42] LABS: CREATININE 0.95 MG/DL (0.60-1.30)
[2017-09-07 07:50] VITALS: BP 135/74; PULSE 66; RESP 20; TEMP 97.7; O2SAT 96
[2017-09-07] MEDS: LACTOBACILLUS ACIDOPHILUS TAB PO SCH ×2 (09:23→13:17)
[2017-09-07] MEDS: PANTOPRAZOLE SOD 40 MG DELAYED RELEASE TAB PO SCH (09:23)
[2017-09-07] MEDS: amLODIPine BESYLATE 5 MG TAB PO SCH (09:23)
[2017-09-07] MEDS: PROPRANOLOL HCL 10 MG TAB PO SCH ×2 (09:23→13:17)
[2017-09-07] MEDS: MEGESTROL ACETATE SUSP 400 MG/10 ML CUP PO SCH (09:23)
[2017-09-07] MEDS: ASPIRIN EC 81 MG TABEC PO SCH (09:23)
[2017-09-07] MEDS: ENALAPRIL MALEATE 10 MG TAB PO SCH (09:23)
[2017-09-07] MEDS: PARoxetine HCL 20 MG TAB PO SCH (09:23)
[2017-09-07 11:30] VITALS: BP 127/58; PULSE 63; RESP 20; TEMP 99.8; O2SAT 97
[2017-09-07] MEDS ORDERED: Megestrol Liq PO (11:53)
[2017-09-07] MEDS ORDERED: LACT PO (11:53)
[2017-09-07] MEDS ORDERED: METF500 PO (11:53)
--- NOTE | 2017-09-07 11:54 | HHI.DS ---
Discharge Summary Admission Date Sep 02, 2017 at 01:28 Discharge Date: Sep 07, 2017 Admitting Diagnosis AMS, HYPOGLYCEMIA, DEMENTIA EXACERBATION (1) Altered mental status ICD Code: R41.82 - Altered mental status, unspecified Status: Acute (2) Alzheimer's dementia ICD Code: G30.9 - Alzheimer's disease, unspecified Status: Chronic (3) Generalized weakness ICD Code: R53.1 - Weakness Status: Acute (4) H/O: CVA (cerebrovascular accident) ICD Code: Z86.73 - Personal history of transient ischemic attack (TIA), and cerebral infarction without residual deficits Status: Chronic (5) DM (diabetes mellitus) ICD Code: E11.9 - Type 2 diabetes mellitus without complications Status: Chronic (6) HTN (hypertension) ICD Code: I10 - Essential (primary) hypertension Status: Chronic Procedures none Brief History - From Admission 68-year-old with a medical history significant for dementia, hypertension, diabetes, history of CVA brought to the emergency room by caregiver for generalized weakness and altered mental status. The patient states that he has no energy but is unable to elaborate. Caregiver reports the patient has been refusing to eat and lack of energy. He is sleeping a lot more. Workup in the emergency room so far unremarkable. CBC/BMP: 09/07/17 0530 09/07/17 0530 Significant Findings Laboratory Tests Test 09/05/17 05:50 09/07/17 05:30 Red Blood Count 3.30 MIL/MM3 (4.50-5.90) 3.49 MIL/MM3 (4.50-5.90) Hemoglobin 10.3 GM/DL (13.0-17.0) 10.0 GM/DL (13.0-17.0) Hematocrit 30.1 % (39.0-51.0) 31.9 % (39.0-51.0) Monocytes (%) (Auto) 9.5 % (0.0-8.0) 8.7 % (0.0-8.0) Eosinophils (%) (Auto) 4.3 % (0.0-4.0) Calcium Level 8.3 MG/DL (8.5-10.1) Chloride Level 111 MEQ/L (98-107) 111 MEQ/L (98-107) Estimat Glomerular Filtration Rate 65 ML/MIN (>89) 76 ML/MIN (>89) Mean Corpuscular Hemoglobin Concent 31.5 % (32.0-36.0) Blood Urea Nitrogen 19 MG/DL (7-18) Random Glucose 117 MG/DL (74-106) Imaging Last Impressions Chest CT 09/02/17 0000 Signed Impressions: CONCLUSION: 1. No acute intrathoracic disease. 2. Atherosclerotic changes of the thoracic aorta with mild aneurysmal dilatati on of the arch and descending thoracic aorta measuring 4.5 x 4.4 cm. Chest X-Ray 09/01/17 0000 Signed Impressions: CONCLUSION: No acute intrathoracic disease. Stable examination. PE at Discharge GENERAL: sitting up on recliner, appears comfortable. CARDIOVASCULAR: Normal rate and regular rhythm without murmurs RESPIRATORY: Good respiratory efforts. Breath sounds equal and clear to auscultation bilaterally. GASTROINTESTINAL: Abdomen soft, non-tender, non-distended. Normal active bowel sounds MUSCULOSKELETAL: Extremities without edema. Pt update on day of discharge Pt has no complaints. denies any pain, states he ate his breakfast. no nausea or vomiting. Hospital Course (1) Altered mental status There is no obvious etiology for the mental status change. Most likely related to dementia. Previous hospitalist had discussed with the patient's caregiver/ MELINDA Penny who indicated he has been declining and inquired about hospice at this time. Apparently he was previously on [facility] hospice in the past. [facility] evaluated the patient and he was deemed not a hospice candidate. However [facility] agreed to f/u pt as an outpatient. Calory count was done and caloric intake is appropriate. continue megace. dose of metformin was reduced to 500mg po bid Continue to monitor and redirect patient. Encourage PO intake. (2) Alzheimer's dementia/poor appetite Patient is already on Seroquel, Aricept, and Paxil. His dementia has been getting worse per his caregiver. She requested hospice services however hospice did evaluate the patient but he didn't meet hospice criteria. Dose of d Seroquel was decreased to 25 mg nightly because it was reported that he has been sleeping a lot. on megace for his appetite (3) Generalized weakness Improved. Ambulating well with PT. Pt Condition on Discharge: Stable Discharge Disposition: Hospice/ Home Discharge Time: > 30 minutes Discharge Instructions DIET: Follow Instructions for: Heart Healthy Diet Activities you can perform: Regular-No Restrictions Follow up Referrals: PCP Follow-up - 1 Week New Medications: Enalapril (Enalapril) 20 Mg Tab 20 MG PO BID, #60 TAB 0 Refills Lactobacillus Acidophilus (Acidophilus/l-Sporogenes) 35 Million Cell-25 Million Cell Tab 1 TAB PO TID, #30 TAB Metformin (Glucophage) 500 Mg Tab 500 MG PO BIDAC, #60 TAB Propranolol (Propranolol) 10 Mg Tab 10 MG PO TID, #90 TAB Quetiapine (Seroquel) 25 Mg Tab 25 MG PO HS, #30 TAB [Megestrol Liq] () 400 MG/10 ML SUSP 400 MG PO DAILY, #200 ML Continued Medications: Amlodipine (Norvasc) 5 Mg Tab 5 MG PO DAILY for Blood Pressure Management, #30 TAB [address] (Aspirin EC) 81 Mg Tabdr 81 MG PO DAILY, TAB 0 Refills Atorvastatin (Lipitor) 80 Mg Tab 80 MG PO HS for Cholesterol Management, #30 TAB 0 Refills Donepezil (Donepezil) 5 Mg Tab 5 MG PO HS for Dementia, #30 TAB 0 Refills Dorzolamide Opth Drops (Trusopt Opth Drops) 2% Soln 1 DROP LEFT EYE TID for Glaucoma, #1 BOTTLE 0 Refills Glipizide (Glipizide) 10 Mg Tab 10 MG PO BIDAC for Blood Sugar Management, #60 TAB 0 Refills Take 30 minutes before a meal Memantine (Namenda) 5 Mg Tab 5 MG PO BID for Alzheimer Disease, #60 TAB 0 Refills Pantoprazole (Pantoprazole) 40 Mg Tab 40 MG PO BID for Reflux, #30 TAB 0 Refills Paroxetine (Paroxetine) 40 Mg Tab 40 MG PO DAILY, #30 TAB 0 Refills Tamsulosin (Flomax) 0.4 Mg Cap 0.4 MG PO HS for Manage Prostate Problems, #30 CAP 0 Refills Discontinued Medications: Metformin (Metformin) 1,000 Mg Tab 1000 MG PO TIDAC for Blood Sugar Management, #60 TAB 0 Refills Propranolol ER 24 HR (Inderal LA 24 HR) 60 Mg Cap 20 MG PO TID, #30 CAP 0 Refills Quetiapine (Seroquel) 50 Mg Tab 50 MG PO HS, #30 TAB 0 Refills Tianna Bañuelos MD Sep 07, 2017 11:54
[2017-09-07] MEDS ORDERED: ENAL20TA PO (12:06)
[2017-09-07] MEDS ORDERED: SERO25TA PO (12:06)
[2017-09-07] MEDS ORDERED: PROP10TA6 PO (12:06)
== END 2017-09-07 16:00 | disposition hospice, home (50) ==
LOC: PHED 21:51 → PHEDA 09-02 01:28 → PH3B 09-02 02:55
PROVIDERS: ADMIT Hospitalist; ATTEND Hospitalist
DX: R41.82 Altered mental status, unspecified (principal); G30.9 Alzheimer's disease, unspecified; F02.81 Dementia in other diseases classified elsewhere, unspecified severity, with behavioral disturbance; R53.1 Weakness; E11.649 Type 2 diabetes mellitus with hypoglycemia without coma; I10 Essential (primary) hypertension; E78.00 Pure hypercholesterolemia, unspecified; K21.9 Gastro-esophageal reflux disease without esophagitis; I69.311 Memory deficit following cerebral infarction; I69.398 Other sequelae of cerebral infarction; R20.8 Other disturbances of skin sensation; H91.90 Unspecified hearing loss, unspecified ear; F17.200 Nicotine dependence, unspecified, uncomplicated; Z86.73 Personal history of transient ischemic attack (TIA), and cerebral infarction without residual deficits; Z79.899 Other long term (current) drug therapy; Z79.82 Long term (current) use of aspirin; W06.XXXA Fall from bed, initial encounter
CPT/HCPCS: 71045; 71250; 80048; 80053; 80307; 81001; 82948; 83735; 84443; 84484; 85025; 85610; 85730; 87205; 87425; 87493; 87506; 93005; 96360; 96361; 96374; 97110; 97116; 97162; 99285; G0378; G8987; G8988; P9612

== ENCOUNTER 2017-09-16 12:33 | Observation (INO) | payer OTHER ==
[~2017-09-16] VITALS: Ht 180.3 cm; Wt 68.0 kg
[2017-09-16 12:33] VITALS: BP 99/53; PULSE 69; RESP 18; TEMP 98.3; O2SAT 97
[~2017-09-16 12:33] MED LIST changes: +LACT PO; -METF1000 PO; +METF500 PO; +Megestrol Liq PO; +PROP10TA6 PO; -PROP60 PO; +SERO25TA PO; -SERO50TA PO
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
[2017-09-16] MEDS ORDERED: SODIUM CHLOR 0.9% 1000 ML INJ 1,000 ML IV SCH (13:02)
[2017-09-16] MEDS ORDERED: DICY10CA12 PO (13:05)
[2017-09-16] MEDS ORDERED: ENAL20TA PO (13:05)
[2017-09-16] MEDS ORDERED: oxygen INH (13:06)
[2017-09-16] MEDS ORDERED: SODIUM CHLORIDE 0.9% FLUSH 10 ML FLUSH IV FLUSH PRN (13:15)
[2017-09-16 13:16] VITALS: BP 100/54; PULSE 68; RESP 18; O2SAT 97
[2017-09-16 13:17] LABS: AUTOMATED NEUTROPHIL # 6.7 TH/MM3 (1.8-7.7); BASOPHIL # 0.1 TH/MM3 (0-0.2); BASOPHIL % 0.8 % (0.0-2.0); EOSINOPHIL # 0.2 TH/MM3 (0-0.4); EOSINOPHIL % 2.4 % (0.0-4.0); HEMATOCRIT 33.8 % (39.0-51.0); HEMOGLOBIN 10.9 GM/DL (13.0-17.0); LYMPH % 14.1 % (9.0-44.0); LYMPHOCYTE # 1.2 TH/MM3 (1.0-4.8); MEAN CELL VOLUME 90.7 FL (80.0-100.0); MEAN CORPUSCULAR HEMOGLOBIN 29.3 PG (27.0-34.0); MEAN CORPUSCULAR HGB CONC 32.3 % (32.0-36.0); MEAN PLATELET VOLUME 8.8 FL (7.0-11.0); MONO % 4.6 % (0.0-8.0); MONOCYTE # 0.4 TH/MM3 (0-0.9); NEUT % 78.1 % (16.0-70.0); PLATELET COUNT 332 TH/MM3 (150-450); RED BLOOD COUNT 3.73 MIL/MM3 (4.50-5.90); WHITE BLOOD COUNT 8.6 TH/MM3 (4.0-11.0)
[2017-09-16 13:29] LABS: CHLORIDE 107 MEQ/L (98-107); SODIUM (NA) 140 MEQ/L (136-145)
--- NOTE | 2017-09-16 13:31 | RADRPT ---
EXAM DATE: 09/16/2017 1:19 PM EDT AGE/SEX: 77 years / Male INDICATIONS: Syncopal episode, confusion. CLINICAL DATA: This is the patient's initial encounter. Patient reports that signs and symptoms have been present for 1 day and indicates a pain score of Nonresponsive. MEDICAL/SURGICAL HISTORY: Hypercholesterolemia. Facet arthritis. Hiatal hernia. Stroke. Pavan ntia. Hypertension. Ulcer. Diabetic, Tonsillectomy. Abdominal aortic aneurysm repair. Inguinal her arnie repair. Coronary stent. Appendectomy. Bladder lift. COMPARISON: [facility], CHEST SINGLE AP, 09/02/2017. [facility], CT THORAX W/O CONTRAST, 09/02/2017. . FINDINGS: The heart size is normal. There is lobulation at the aortic arch and proximal descending thoracic aor ta. The patient had an aneurysm demonstrated on recent CT examination. The lungs appear grossly clear . No effusion is seen. 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 These were demonstra telly on the prior CT examination from 08/2017. Electronically signed by: Travis Willson MD 09/16/2017 1:29 PM EDT
[2017-09-16 13:34] LABS: ALBUMIN 3.1 GM/DL (3.4-5.0); CALCIUM 8.8 MG/DL (8.5-10.1); GLUCOSE,RANDOM 120 MG/DL (74-106)
[2017-09-16 13:35] LABS: BLOOD UREA NITROGEN 33 MG/DL (7-18)
[2017-09-16 13:37] VITALS: BP 114/59; PULSE 67; RESP 18; O2SAT 97
[2017-09-16 13:37] LABS: ALT (GPT) 14 U/L (12-78); AST (GOT) 17 U/L (15-37)
[2017-09-16 13:38] LABS: GLOMERULAR FILTRATION RATE 49 ML/MIN (>89)
[2017-09-16 13:39] LABS: TOTAL BILIRUBIN ADULT 0.3 MG/DL (0.2-1.0); TOTAL PROTEIN 7.3 GM/DL (6.4-8.2)
[2017-09-16 13:40] LABS: ALKALINE PHOSPHATASE 95 U/L (45-117)
[2017-09-16 13:43] LABS: TROPONIN I LESS THAN 0.02 NG/ML (0.02-0.05)
[2017-09-16 13:47] LABS: LACTIC ACID SEPSIS PROTOCOL 3.2 mmol/L (0.4-2.0)
[2017-09-16 14:14] VITALS: BP 123/63; PULSE 72; RESP 18; O2SAT 97
[2017-09-16] MEDS ORDERED: PIPERACIL-TAZO 4.5 GM PREMIX 100 ML IV ONE (14:15)
[2017-09-16] MEDS ORDERED: VANCOMYCIN INJ 1,000 MG in SODIUM CHLOR 0.9% 250 ML INJ 250 ML IV ONE (14:15)
[2017-09-16] MEDS ORDERED: SODIUM CHLORID 0.9% 500 ML INJ 500 ML IV ONE (14:15)
[2017-09-16 14:18] LABS: BILIRUBIN, URINE NEG (NEG); BLOOD, URINE NEG (NEG); GLUCOSE,URINE NEG (NEG); KETONE, URINE NEG (NEG); NITRITE,URINE NEG (NEG); URINE COLOR YELLOW (YELLW/STRAW); URINE LEUKOCYTE ESTERASE NEG (NEG)
[2017-09-16 14:50] LABS: SQUAMOUS EPITHELIAL CELL URINE 0-2 /hpf (0-5); WBC, URINE 0-2 /hpf (0-5)
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
[2017-09-16 16:14] VITALS: BP 154/72; PULSE 76; RESP 18; O2SAT 96
--- NOTE | 2017-09-16 16:33 | RADRPT ---
EXAM DATE: 09/16/2017 1:56 PM EDT AGE/SEX: 77 years / Male INDICATIONS: Altered mental status. Fall. CLINICAL DATA: This is the patient's initial encounter. Patient reports that signs and symptoms have been present for 1 day and indicates a pain score of 2/10. MEDICAL/SURGICAL HISTORY: Diabetes. Aneurysm, abdominal. Gastroesophageal reflux disease. Stroke . Dementia. Hypertension. Ulcer. Coronary artery stent. Abdominal aortic aneurysm repair. Appende ctomy. RADIATION DOSE: 56.11 CTDI (mGy) COMPARISON: [facility], CT BRAIN W/O CONTRAST, 05/25/2017. . TECHNIQUE: CT of the head without contrast. Using automated exposure control and adjustment of the mA and/or kV according to patient size, radiation dose was kept as low as reasonably achievable to ob tain optimal diagnostic quality images. DICOM format image data is available electronically for revi ew and comparison. FINDINGS: Cerebrum: Stable encephalomalacia in the left parietal mid convexities with significant associated wh ite matter hypodensities. Stable bilateral basal ganglia lacunar infarcts. Moderate diffuse cerebral atrophy. The ventricles are normal for degree of atrophy. No evidence of midline shift, mass lesion, hemorrhage or acute infarction. No extraaxial fluid collections are seen. Posterior Fossa: The cerebellum and brainstem are intact. The 4th ventricle is midline. The cerebe llopontine angle is unremarkable. Extracranial: The visualized portion of the orbits is intact. Skull: The calvaria is intact. No evidence of skull fracture. CONCLUSION: 1. Stable old left MCA territory and bilateral basal ganglia infarcts. 2. No acute intracranial abnormality or significant interval change. Electronically signed by: Ryan Rios MD 09/16/2017 4:31 PM EDT
--- NOTE | 2017-09-16 16:55 | HHI.DCPOC ---
Discharge Care Plan Diagnosis: (1) Dementia (2) Lactic acidosis (3) Dehydration Goals to Promote Your Health * To prevent worsening of your condition and complications * To maintain your health at the optimal level Directions to Meet Your Goals Take your medications as prescribed Follow your dietary instruction Follow activity as directed Keep your appointments as scheduled Take your immunizations and boosters as scheduled If your symptoms worsen call your PCP, if no PCP go to Urgent Care Center or Emergency Room Smoking is Dangerous to Your Health. Avoid second hand smoke Call the 24-hour hour crisis hotline for domestic abuse at [facility] Sep 16, 2017 16:55
[2017-09-16 19:26] VITALS: BP 145/72; PULSE 76; RESP 18; O2SAT 96
--- NOTE | 2017-09-17 19:33 | EKG ---
Date Performed: 09/16/2017 Time Performed: 13:21:31 PTAGE: 77 years EKG: Sinus rhythm NORMAL ECG PREVIOUS TRACING : 09/01/2017 22.20 When compared to prior EKG,NV interval has returned to norm al DOCTOR: Michelle Bradley Interpretating Date/Time 09/17/2017 19:33:05
== END 2017-09-16 20:03 | disposition hospice, inpatient (51) ==
LOC: PHED 12:33 → PHEDA 15:01
PROVIDERS: ADMIT Hospitalist; ATTEND Hospitalist
DX: R62.7 Adult failure to thrive (principal); F03.91 Unspecified dementia, unspecified severity, with behavioral disturbance; N17.9 Acute kidney failure, unspecified; I12.9 Hypertensive chronic kidney disease with stage 1 through stage 4 chronic kidney disease, or unspecified chronic kidney disease; E11.22 Type 2 diabetes mellitus with diabetic chronic kidney disease; N18.3 Chronic kidney disease, stage 3 (moderate); E86.0 Dehydration; S09.90XA Unspecified injury of head, initial encounter; E87.2 Acidosis; E78.00 Pure hypercholesterolemia, unspecified; G20 Parkinson's disease; I77.810 Thoracic aortic ectasia; K21.9 Gastro-esophageal reflux disease without esophagitis; G93.89 Other specified disorders of brain; H91.93 Unspecified hearing loss, bilateral; F17.210 Nicotine dependence, cigarettes, uncomplicated; Z86.73 Personal history of transient ischemic attack (TIA), and cerebral infarction without residual deficits; Z95.5 Presence of coronary angioplasty implant and graft; Z79.899 Other long term (current) drug therapy; Z79.82 Long term (current) use of aspirin; W19.XXXA Unspecified fall, initial encounter
CPT/HCPCS: 70450; 71045; 80053; 81001; 82550; 83605; 84443; 84484; 85025; 87040; 93005; 96361; 96365; 96376; 99285; G0378; J2543; J3370; J7030; J7040; J7050